=== PATIENT | female | born 1960 | race Caucasian/White ===

== ENCOUNTER 2018-03-26 16:31 | Inpatient (IN) | payer MEDICARE, OTHER ==
[~2018-03-26] VITALS: Ht 149.9 cm; Wt 49.6 kg
[2018-03-26] MEDS ORDERED: HYDROCODONE/APAP 7.5MG-325MG 1 EA TAB PO PRN (17:45)
[2018-03-26] MEDS ORDERED: ASPIRIN 81 MG CHEW TAB PO ONE (17:45)
[2018-03-26] MEDS ORDERED: AMLODIPINE BESYLATE 10 MG TAB ONE (18:10)
[2018-03-26] MEDS ORDERED: NITROGLYCERIN 2% OINT 1 GM PKT TOP ONE (18:15)
--- NOTE | 2018-03-26 18:54 | Diagnostic Imaging Report ---
SHOULDER LEFT COMPLETE - 2 views HISTORY: Pain. Left shoulder pain COMPARISON: None available. FINDINGS: Bones: Left distal clavicular resection. Healed left posterior fourth and fifth rib fracture deformities. Osseous alignment is within normal limits. Joints: The joint spaces are well-maintained. Soft tissues: The soft tissues appear unremarkable. IMPRESSION: 1. No acute radiographic abnormality. 2. Left distal clavicular resection. 3. Healed left posterior fourth and fifth rib fracture deformities. Signed by: Dr. Bon Ferris M.D. on 03/26/2018 6:51 PM
--- NOTE | 2018-03-26 18:55 | Diagnostic Imaging Report ---
EXAMINATION: CHEST SINGLE (PORTABLE) INDICATION: Shortness of breath. chest pain. COMPARISON: None FINDINGS: AP view TUBES and LINES: None. LUNGS: Lungs are well inflated. Right basilar atelectasis PLEURA: Trace right pleural effusion. HEART AND MEDIASTINUM: The cardiomediastinal silhouette is unremarkable. There are atherosclerotic calcifications within the aorta. BONES AND SOFT TISSUES: Healed left fourth and fifth rib fracture deformities. Distal left clavicular resection. No acute osseous lesion. Soft tissues are unremarkable. UPPER ABDOMEN: No free air under the diaphragm. IMPRESSION: Trace right pleural effusion with right basilar atelectasis and/or consolidation. Signed by: Dr. Bon Ferris M.D. on 03/26/2018 6:52 PM
[2018-03-26] MEDS ORDERED: HYDRALAZINE HCL 20 MG/ML VIAL IV STA (19:16)
[2018-03-26] MEDS ORDERED: HYDRALAZINE HCL 20 MG/ML VIAL ONE (19:20)
[2018-03-26 19:21] LABS: BASOPHILS % 0.4 % (0.0-1.0); EOSINOPHILS # (AUTO) 0.1 (0.0-0.4); EOSINOPHILS % 1.8 % (0.0-6.0); HEMATOCRIT 27.3 % (34.2-44.1); HEMOGLOBIN 9.3 g/dL (12.0-16.0); LYMPHOCYTES # (AUTO) 2.3 (1.0-3.2); MEAN CORPUSCULAR HEMOGLOBIN 33.1 pg (28-32); MEAN CORPUSCULAR HGB CONC 34.1 g/dL (31-35); MEAN CORPUSCULAR VOLUME 97.2 fL (81-99); MONOCYTES # (AUTO) 0.7 (0.2-0.8); MONOCYTES % 12.8 % (4.4-11.3); NEUTROPHILS # (AUTO) 2.5 (2.1-6.9); NEUTROPHILS % 43.6 % (38.7-80.0); PLATELET COUNT 138 x10e3/uL (140-360); RED BLOOD COUNT 2.81 x10e6/uL (3.6-5.1); RED CELL DISTRIBUTION WIDTH 17.5 % (11.7-14.4)
[2018-03-26] MEDS ORDERED: NITROGLYCERIN 0.1MG/HR PATCH TOP ONE (19:30)
[2018-03-26 19:34] LABS: INR 0.95; PROTHROMBIN TIME 13.5 seconds (11.9-14.5)
[2018-03-26 19:35] LABS: PARTIAL THROMBOPLASTIN TIME 36.6 seconds (23.8-35.5)
[2018-03-26 19:44] LABS: ALANINE AMINOTRANSFERASE 125 IU/L (0-55); ALBUMIN 2.9 g/dL (3.5-5.0); ALBUMIN/GLOBULIN RATIO 0.7 (0.8-2.0); ALKALINE PHOSPHATASE 134 IU/L (40-150); ANION GAP 14.7 mmol/L (8-16); BLOOD UREA NITROGEN 20 mg/dL (7-26); BUN/CREATININE RATIO 22 (6-25); CARBON DIOXIDE 22 mmol/L (22-29); CHLORIDE 100 mmol/L (98-107); CREATINE KINASE 207 IU/L (29-168); CREATININE, SERUM 0.93 mg/dL (0.57-1.11); EST GLOMERULAR FILTRATION RATE > 60 ML/MIN (60-); GLUCOSE 93 mg/dL (74-118); LIPASE 140 U/L (8-78); MAGNESIUM 1.4 MG/DL (1.3-2.1); POTASSIUM 3.7 mmol/L (3.5-5.1); SODIUM 133 mmol/L (136-145)
[2018-03-26] MEDS ORDERED: AMBIEN10 MG PO (20:27)
[2018-03-26] MEDS ORDERED: PAROXETINE HCL20 MG PO (20:27)
[2018-03-26] MEDS ORDERED: BUSPIRONE HCL5 MG PO (20:28)
[2018-03-26] MEDS ORDERED: HYDRALAZINE HCL25 MG PO (20:28)
[2018-03-26] MEDS ORDERED: FOLIC ACID1 MG PO (20:28)
[2018-03-26] MEDS ORDERED: TRAZODONE HCL100 MG PO (20:29)
[2018-03-26] MEDS ORDERED: CLONIDINE HCL0.1 MG PO (20:29)
[2018-03-26] MEDS ORDERED: TYLENOL WITH C1 EACH PO (20:30)
[2018-03-26 20:45] VITALS: BP 124/51
[2018-03-26] MEDS: FAMOTIDINE 20 MG/2 ML VIAL IV SCH (20:47)
[2018-03-26] MEDS: TRAZODONE HCL 50 MG TAB PO SCH (21:00)
[2018-03-26] MEDS: HYDRALAZINE HCL 25 MG TAB PO SCH (22:00)
[2018-03-26] MEDS: ZOLPIDEM TARTRATE 10 MG TAB PO PRN (22:25)
[2018-03-26] MEDS: PAROXETINE HCL 20 MG TAB PO SCH (22:25)
[2018-03-26 22:35] VITALS: BP 124/51
[2018-03-26 22:45] VITALS: BP 124/51
[2018-03-27] VITALS (9 sets, daily range): BP systolic 134–171; BP diastolic 63–74
[2018-03-27] MEDS: HYDRALAZINE HCL 20 MG/ML VIAL IV PRN (01:08)
[2018-03-27 04:16] LABS: BASOPHILS % 0.9 % (0.0-1.0); EOSINOPHILS # (AUTO) 0.1 (0.0-0.4); EOSINOPHILS % 1.9 % (0.0-6.0); HEMATOCRIT 25.2 % (34.2-44.1); HEMOGLOBIN 8.4 g/dL (12.0-16.0); LYMPHOCYTES # (AUTO) 1.8 (1.0-3.2); LYMPHOCYTES % 39.2 % (18.0-39.1); MEAN CORPUSCULAR HEMOGLOBIN 32.9 pg (28-32); MEAN CORPUSCULAR HGB CONC 33.3 g/dL (31-35); MEAN CORPUSCULAR VOLUME 98.8 fL (81-99); MONOCYTES # (AUTO) 0.7 (0.2-0.8); MONOCYTES % 15.4 % (4.4-11.3); NEUTROPHILS % 42.4 % (38.7-80.0); PLATELET COUNT 111 x10e3/uL (140-360); RED BLOOD COUNT 2.55 x10e6/uL (3.6-5.1); RED CELL DISTRIBUTION WIDTH 17.8 % (11.7-14.4)
[2018-03-27 04:31] LABS: ANION GAP 12.9 mmol/L (8-16); BLOOD UREA NITROGEN 23 mg/dL (7-26); BUN/CREATININE RATIO 26 (6-25); CALCIUM 8.7 mg/dL (8.4-10.2); CARBON DIOXIDE 25 mmol/L (22-29); CHLORIDE 101 mmol/L (98-107); CREATININE, SERUM 0.88 mg/dL (0.57-1.11); EST GLOMERULAR FILTRATION RATE > 60 ML/MIN (60-); GLUCOSE 103 mg/dL (74-118); POTASSIUM 3.9 mmol/L (3.5-5.1); SODIUM 135 mmol/L (136-145)
[2018-03-27 04:33] LABS: CHOL/HDL RATIO 3.4 (3.0-3.6)
[2018-03-27 04:40] LABS: CREATINE KINASE MB 2.4 ng/mL (0-5.0)
[2018-03-27] MEDS: HYDRALAZINE HCL 25 MG TAB PO SCH ×3 (05:10→21:20)
[2018-03-27] MEDS: FAMOTIDINE 20 MG/2 ML VIAL IV SCH (08:52)
[2018-03-27] MEDS: FOLIC ACID 1 MG TAB PO SCH (08:53)
[2018-03-27] MEDS: ASPIRIN 81 MG ENTERIC COATED PO SCH (08:53)
[2018-03-27] MEDS: BUSPIRONE HCL 5 MG TAB PO SCH ×2 (08:53→17:51)
[2018-03-27] MEDS ORDERED: NITROGLYCERIN 0.1MG/HR PATCH TOP SCH (09:00)
[2018-03-27] MEDS ORDERED: AMLODIPINE BESYLATE 10 MG TAB PO SCH ×2 (09:00→11:00)
[2018-03-27] MEDS ORDERED: ALBUTEROL/IPRATROPIUM 3 ML NEB NEB PRN (09:30)
--- NOTE | 2018-03-27 10:24 | History and Physical ---
CHIEF COMPLAINT: Increasing shortness of breath, cough productive, fever, and right stump wound drainage. PRIMARY CARE PROVIDER: Dr. Janeth Stokes. ATTENDING: Dr. Leonardo Saunders. CONCRETE CRUSHER LOADER OPERATOR: Dr. Cipriano Heart. HISTORY: This is a 57-year-old female, had a right AKA, had recent right AKA wound debridement and sutures were placed. Patient came in with a right stump drainage with pus. It is infected. There is an open wound area. Also she, at the same time, a smoker with COPD, came in with increasing shortness of breath, coughing productively, and with low-grade fever. The patient is admitted on observation. Will be converted to inpatient at this time. Will continue with antibiotics. She will need wound culture, consultation with Dr. Cipriano Heart, and along with that to obtain a CT scan to document infection. The patient is also having wheezing with COPD exacerbation. PAST MEDICAL HISTORY: Smoker, COPD, medical decline, chronic anemia, right AKA with stump infected with recurrent wound debridement, appendectomy, cholecystectomy, hypertension, dyslipidemia, coronary artery disease. MEDICATIONS: List is extensively reviewed. ALLERGIES: NO KNOWN ALLERGIES. SOCIAL HISTORY: Patient does smoke tobacco. No alcohol consumption. No recreational drug. REVIEW OF SYSTEMS: Right stump wound drainage. Increasing pain. Low-grade fever. Cough productive. Shortness of breath. PHYSICAL EXAMINATION GENERAL: The patient is weak but she is not in any distress at this time. She is on oxygen support. VITAL SIGNS: Temperature 98. Blood pressure 243/98. Pulse rate is 57. Respirations 22. HEENT: Normocephalic, atraumatic, and anicteric. NECK: Supple. PULMONARY: Bilaterally coarse with some rhonchi with diminished breath sounds, bases. CARDIOVASCULAR: Regular rate and rhythm. ABDOMEN: Soft. EXTREMITIES: Right AKA stump with wound drainage, open wound infection with pus. NEUROLOGIC: Moving all extremities. No focal deficit. LABORATORY: WBC is 5.6, hemoglobin 9.3, hematocrit 27, platelets is 138. Chemistry: Sodium is 133, potassium 3.7, chloride 100, bicarb 22, BUN 20, creatinine 0.9, glucose is 93. TSH is 9.7. Chest x-ray showed possible basilar infiltrate. IMPRESSIONS 1. Hypertensive urgency. 2. Right stump wound infection with drainage. 3. Basilar infiltrate, possible pneumonia. 4. Acute exacerbation of chronic obstructive pulmonary disease. 5. Chronic anemia. 6. Hypothyroidism. PLAN: Thyroid medication. IV antibiotics vancomycin and Zosyn. Consultation with Dr. Cipriano Heart. Wound care. Wound culture. CT chest without contrast. Nebulizer treatments. Will monitor the patient closely. Will hold off on steroids at this time unless she gets more of shortness of breath. Job#: [id number] FELI
[2018-03-27] MEDS: ACETAMINOPHEN/CODEINE 300MG - 30MG TAB PO PRN ×2 (10:28→19:18)
[2018-03-27] MEDS: ISOSORBIDE MONONITRATE 30 MG TAB CR PO SCH (10:36)
[2018-03-27] MEDS ORDERED: SODIUM CHLORIDE 0.9% 250ML 250 ML ONE (10:37)
[2018-03-27] MEDS: LEVOTHYROXINE SODIUM 50 MCG TAB PO SCH (10:37)
[2018-03-27] MEDS: PIPER-TAZ 3.375 GM 50 ML IV SCH ×2 (11:18→17:51)
--- NOTE | 2018-03-27 11:35 | Diagnostic Imaging Report ---
EXAMINATION: CT scan of the chest without contrast. TECHNIQUE: Helical CT images of the chest were performed from the lung apices to the level of the adrenal glands. No intravenous contrast was administered Coronal and sagittal reformatted images were obtained. COMPARISON: None. CLINICAL HISTORY:Atypical chest pain DISCUSSION: ABSENCE OF INTRAVENOUS CONTRAST DECREASES SENSITIVITY FOR DETECTION OF FOCAL LESIONS AND VASCULAR PATHOLOGY. LINES/TUBES: None. LUNGS AND AIRWAYS: Emphysematous change. No concerning nodules or masses. No consolidation. No significant fibrotic change. PLEURA: No pneumothorax or pleural effusions. HEART AND MEDIASTINUM: The thyroid gland is normal. Coronary artery calcifications. Aortic calcifications. LYMPH NODES: There is no mediastinal, hilar or axillary lymphadenopathy. ABDOMEN: Cirrhotic appearance of the liver BONES AND SOFT TISSUES: No acute bony abnormalities. IMPRESSION: Pulmonary edema. Coronary artery calcifications. Cirrhotic liver. Signed by: Dr. Dylan White M.D. on 03/27/2018 11:32 AM
[2018-03-27 12:23] LABS: CREATINE KINASE 109 IU/L (29-168)
[2018-03-27] MEDS: SODIUM CHLORIDE FLUSH 10 ML SYR INJ PRN ×3 (12:30→19:19)
[2018-03-27] MEDS: VANCOMYCIN 1GM/NS 250 ML 250 ML IV SCH (12:34)
[2018-03-27] MEDS: NICOTINE 21 MG/EA PATCH TOP SCH (12:41)
[2018-03-27] MEDS: TRAZODONE HCL 50 MG TAB PO SCH (20:03)
[2018-03-27] MEDS: PAROXETINE HCL 20 MG TAB PO SCH (20:03)
[2018-03-27 21:10] LABS: CREATINE KINASE 99 IU/L (29-168)
[2018-03-27] MEDS: ZOLPIDEM TARTRATE 10 MG TAB PO PRN (21:48)
[2018-03-28] VITALS (7 sets, daily range): BP systolic 139–183; BP diastolic 63–80
[2018-03-28] MEDS: CLONIDINE HCL 0.1 MG TAB PO PRN ×2 (00:58→21:17)
[2018-03-28] MEDS: ACETAMINOPHEN/CODEINE 300MG - 30MG TAB PO PRN (01:00)
[2018-03-28] MEDS: PIPER-TAZ 3.375 GM 50 ML IV SCH ×3 (01:56→17:16)
[2018-03-28] MEDS: LEVOTHYROXINE SODIUM 50 MCG TAB PO SCH (05:35)
[2018-03-28] MEDS: HYDRALAZINE HCL 25 MG TAB PO SCH (05:35)
[2018-03-28] MEDS ORDERED: VALSARTAN 160 MG TAB PO ONE (09:00)
[2018-03-28] MEDS: FUROSEMIDE INJ 10 MG/ML 4 ML VIAL IV SCH (09:10)
[2018-03-28] MEDS: NICOTINE 21 MG/EA PATCH TOP SCH (09:11)
[2018-03-28] MEDS: ASPIRIN 81 MG ENTERIC COATED PO SCH (09:11)
[2018-03-28] MEDS: POTASSIUM CHLORIDE 10MEQ EA PO SCH (09:11)
[2018-03-28] MEDS: FOLIC ACID 1 MG TAB PO SCH (09:11)
[2018-03-28] MEDS: ISOSORBIDE MONONITRATE 30 MG TAB CR PO SCH (09:11)
[2018-03-28] MEDS: BUSPIRONE HCL 5 MG TAB PO SCH ×2 (09:24→17:15)
[2018-03-28] MEDS ORDERED: VALSARTAN 80 MG TAB PO NR (09:30)
[2018-03-28] MEDS: SODIUM CHLORIDE FLUSH 10 ML SYR INJ PRN ×2 (09:45→17:51)
[2018-03-28 09:50] LABS: % IRON SATURATION 26 % (15-50); IRON 70 ug/dL (50-170); TOTAL IRON BINDING CAPACITY 270 ug/dL (261-478); TRANSFERRIN 193 mg/dL (180-382)
[2018-03-28] MEDS: VANCOMYCIN 1GM/NS 250 ML 250 ML IV SCH (10:19)
[2018-03-28 11:19] LABS: FOLATE 33.1 ng/mL (7.0-15.4)
[2018-03-28] MEDS: ENOXAPARIN SOD INJ 40 MG/0.4 ML SYR SC SCH ×2 (11:30→21:17)
[2018-03-28] MEDS: CARVEDILOL 12.5 MG TAB PO SCH ×2 (11:30→17:16)
[2018-03-28] MEDS: HYDROCODONE/APAP 10MG-325MG TAB PO PRN ×2 (11:42→17:52)
--- NOTE | 2018-03-28 17:10 | Consultation ---
DATE OF CONSULTATION: March 28, 2018 REFERRING PHYSICIANS: Dr. Saunders and Dr. Stokes. HISTORY OF PRESENT ILLNESS: Patient is a 57-year-old female known to me. She has had a right above-knee amputation after severe peripheral vascular disease in the right leg with ischemia of the right leg when she was in intensive care unit at [facility]. She developed open wound in the right leg with some necrotic tissue for which she underwent debridement about 2 weeks ago and then the wound was loosely closed. She has had some drainage from the wound since then which is expected. She complains of mild pain in the stump. She has been treated just with local care with a dry dressing and actually has been improving. PAST MEDICAL HISTORY: Significant for chronic obstructive pulmonary disease, peripheral vascular disease, history of ethanol abuse, coronary artery disease, hypertension, hyperlipidemia. She has had previous cholecystectomy, appendectomy as well as the recent jreid-ktj-mkas amputation. ALLERGIES: NO ALLERGIES. MEDICATIONS: Listed in the chart. FAMILY HISTORY: Noncontributory. SOCIAL HISTORY: The patient is formerly a heavy drinker, does not drink now, but does smoke cigarettes. REVIEW OF SYSTEMS: She is not had any fever. She has had complaints of cough and shortness of breath recently. PHYSICAL EXAMINATION: VITALS: At this time are normal. GENERAL: The patient is awake and alert and in no distress. EXTREMITIES: Significant findings in the right lower extremity, there is a wound that is partially closed posteriorly where there are some sutures. There is some serosanguineous drainage, but only a small amount. There is no erythema. There is no necrotic tissue. ASSESSMENT: A 57-year-old female with a slowly healing right open wound in the right above-knee amputation stump. I do not see any signs of active infection. She does have drainage which is to be suspected. Probably will remove the suture soon and allow the remainder of the would to close secondarily. There are no findings that require surgical intervention at this time. Thank you for asking me to see Ms. Farrell. Job#: [id number]
--- NOTE | 2018-03-28 18:55 | Consultation ---
DATE OF CONSULTATION: March 28, 2018 CARDIOVASCULAR CONSULTATION ATTENDING PHYSICIAN: Leonardo Saunders MD Thank you so much for asking me to see this nice patient in consultation. Ms. Farrell is a complex and unfortunate 57-year-old woman, who was admitted on the with a complaint of pain and drainage from her right tgtkl-qfd-tsfj amputation. HISTORY OF PRESENT ILLNESS: The patient has since she has been in the hospital had some chest discomfort. She has difficulty describing this, but apparently it is a precordial chest pressure that radiates to her left arm. She says she has never had this before. PAST MEDICAL HISTORY: Complex, most recently with right hyhba-njy-qxhv amputation probably in November of this year at [facility]. She describes this as an infection after a clot. She really cannot give me any further details. Past medical history is otherwise significant for a cerebrovascular accident in 2009 when she was hospitalized at [facility]. She apparently with a stroke fell down and injured her right knee, requiring debridement and antibiotics. She reports she did not have any neurologic residual. She reports she has been disabled since that time and not working. She reports that she has had previous cholecystectomy. MEDICATIONS: She cannot tell me her home medications, but adds that she does take blood pressure medicines. PERSONAL AND SOCIAL HISTORY: The patient has been smoking since she was 19 years of age approximately 1/2 pack per day for the last 38 years. REVIEW OF SYSTEMS CARDIAC: She denies any knowledge of any cardiac problem. NEUROLOGIC: She tells me that she has never had any evaluation of her carotid arteries, even though she had previous stroke. GENERAL: Patient reports she was ambulating before she had the right fvrfl-bvm-aykj amputation but is disabled and living at home. PHYSICAL EXAMINATION GENERAL: Exam at this time shows a disheveled white woman who looks much older than her stated age with poor dentition. VITALS: Most recent blood pressure was 170/78, although her admitting blood pressure to the hospital was 243/98. HEENT: Otherwise, relatively unremarkable. NECK: Bilateral carotid bruits, the left side much louder than the right. No jugular venous distention. THORAX: Heart sounds S1 and S2 are equal. There is a faint 1/6 systolic murmur. LUNGS: Relatively clear at this time. ABDOMEN: Protuberant. Normal bowel sounds. Nontender. EXTREMITIES: Right bnccw-axf-pcsz amputation with gauze bandage. LABS: Recent labs show BUN 23, creatinine 0.88. Glucose 103. Hemoglobin 8.4. White count 4.6. CHEST X-RAY: Relatively unremarkable. ASSESSMENT 1. Chest pain, most likely cardiac and coronary in origin. 2. Infected stump. 3. Severe hypertension with her telling me that her home readings are typically 170 to 180 with diastolic of about 100. 4. Carotid disease without previous evaluation. 5. Probable peripheral vascular disease. 6. Chronic obstructive pulmonary disease. 7. Anemia PLAN: Will check EKG today. Carotid Doppler scan and arterial Doppler scan of the legs and plan Cardiolite if she remains otherwise stable. Will adjust blood pressure medications and add Coreg 12.5 b.i.d. beginning now. Her prognosis is guarded. Thank for asking me to see her in consultation. Job#: [id number] cc:MD AURELIA ANDERSON MD
[2018-03-28] MEDS: PAROXETINE HCL 20 MG TAB PO SCH (21:17)
[2018-03-28] MEDS: TRAZODONE HCL 50 MG TAB PO SCH (21:18)
[2018-03-28] MEDS: ZOLPIDEM TARTRATE 10 MG TAB PO PRN (22:40)
[2018-03-29] VITALS (8 sets, daily range): BP systolic 170–215; BP diastolic 73–94
[2018-03-29] MEDS: HYDRALAZINE HCL 20 MG/ML VIAL IV PRN (01:06)
[2018-03-29] MEDS: HYDROCODONE/APAP 10MG-325MG TAB PO PRN ×2 (01:12→11:17)
[2018-03-29] MEDS: PIPER-TAZ 3.375 GM 50 ML IV SCH ×3 (01:49→18:49)
[2018-03-29] MEDS: HYDRALAZINE HCL 25 MG TAB PO PRN (04:05)
[2018-03-29 05:42] LABS: BASOPHILS % 0.6 % (0.0-1.0); EOSINOPHILS # (AUTO) 0.1 (0.0-0.4); EOSINOPHILS % 3.4 % (0.0-6.0); HEMATOCRIT 24.7 % (34.2-44.1); HEMOGLOBIN 8.1 g/dL (12.0-16.0); LYMPHOCYTES # (AUTO) 1.2 (1.0-3.2); LYMPHOCYTES % 37.9 % (18.0-39.1); MEAN CORPUSCULAR HEMOGLOBIN 32.8 pg (28-32); MEAN CORPUSCULAR HGB CONC 32.8 g/dL (31-35); MONOCYTES # (AUTO) 0.6 (0.2-0.8); MONOCYTES % 16.8 % (4.4-11.3); NEUTROPHILS # (AUTO) 1.3 (2.1-6.9); NEUTROPHILS % 40.7 % (38.7-80.0); PLATELET COUNT 100 x10e3/uL (140-360); RED BLOOD COUNT 2.47 x10e6/uL (3.6-5.1); RED CELL DISTRIBUTION WIDTH 17.6 % (11.7-14.4)
[2018-03-29 05:58] LABS: ANION GAP 13.6 mmol/L (8-16); CALCIUM 8.8 mg/dL (8.4-10.2); CREATININE, SERUM 1.26 mg/dL (0.57-1.11); POTASSIUM 3.6 mmol/L (3.5-5.1)
[2018-03-29 06:20] LABS: THYROID STIMULATING HORMONE 9.643 uIU/mL (0.350-4.940)
[2018-03-29] MEDS: VALSARTAN 160 MG TAB PO SCH ×2 (06:40→08:51)
[2018-03-29] MEDS: LEVOTHYROXINE SODIUM 50 MCG TAB PO SCH (06:40)
[2018-03-29] MEDS ORDERED: REGADENOSON 0.4 MG/5 ML SYR IV ONE (08:02)
[2018-03-29] MEDS: CARVEDILOL 12.5 MG TAB PO SCH ×2 (08:51→17:22)
[2018-03-29] MEDS ORDERED: POTASSIUM CHLORIDE 20 MEQ TAB CR PO SCH (09:00)
[2018-03-29] MEDS ORDERED: OXYMETAZOLINE HCL 0.05% NAS 1 SPRAY BTL SCH (10:00)
[2018-03-29] MEDS: BUSPIRONE HCL 5 MG TAB PO SCH ×2 (11:10→17:22)
[2018-03-29] MEDS: ISOSORBIDE MONONITRATE 30 MG TAB CR PO SCH (11:10)
[2018-03-29] MEDS: FOLIC ACID 1 MG TAB PO SCH (11:10)
[2018-03-29] MEDS: FUROSEMIDE INJ 10 MG/ML 4 ML VIAL IV SCH (11:10)
[2018-03-29] MEDS: POTASSIUM CHLORIDE 10MEQ EA PO SCH (11:11)
[2018-03-29] MEDS ORDERED: CLONIDINE HCL 0.1 MG TAB PO SCH (11:15)
[2018-03-29] MEDS: OXYMETAZOLINE HCL 0.05% NAS 1 SPRAY BTL PRN ×2 (11:30→16:20)
[2018-03-29] MEDS: VANCOMYCIN 1GM/NS 250 ML 250 ML IV SCH (11:59)
[2018-03-29] MEDS: CLONIDINE HCL 0.2 MG TAB PO SCH ×3 (12:10→21:11)
[2018-03-29] MEDS: NICOTINE 21 MG/EA PATCH TOP SCH (13:30)
[2018-03-29] MEDS: TRAZODONE HCL 50 MG TAB PO SCH (21:11)
[2018-03-29] MEDS: PAROXETINE HCL 20 MG TAB PO SCH (21:11)
[2018-03-29] MEDS: ZOLPIDEM TARTRATE 10 MG TAB PO PRN (23:09)
[2018-03-30] VITALS (7 sets, daily range): BP systolic 124–220; BP diastolic 58–91
[2018-03-30] MEDS: HYDRALAZINE HCL 20 MG/ML VIAL IV PRN ×2 (00:18→05:11)
[2018-03-30] MEDS: PIPER-TAZ 3.375 GM 50 ML IV SCH ×3 (02:12→18:06)
[2018-03-30] MEDS: LEVOTHYROXINE SODIUM 50 MCG TAB PO SCH (05:12)
[2018-03-30 05:56] LABS: BASOPHILS % 0.6 % (0.0-1.0); EOSINOPHILS # (AUTO) 0.1 (0.0-0.4); EOSINOPHILS % 1.8 % (0.0-6.0); HEMATOCRIT 27.2 % (34.2-44.1); HEMOGLOBIN 9.1 g/dL (12.0-16.0); LYMPHOCYTES # (AUTO) 1.8 (1.0-3.2); LYMPHOCYTES % 35.3 % (18.0-39.1); MEAN CORPUSCULAR HGB CONC 33.5 g/dL (31-35); MEAN CORPUSCULAR VOLUME 98.6 fL (81-99); MONOCYTES # (AUTO) 0.6 (0.2-0.8); MONOCYTES % 11.2 % (4.4-11.3); NEUTROPHILS # (AUTO) 2.6 (2.1-6.9); NEUTROPHILS % 50.9 % (38.7-80.0); PLATELET COUNT 117 x10e3/uL (140-360); RED BLOOD COUNT 2.76 x10e6/uL (3.6-5.1); RED CELL DISTRIBUTION WIDTH 17.4 % (11.7-14.4)
[2018-03-30 06:20] LABS: ANION GAP 12.5 mmol/L (8-16); CALCIUM 9.7 mg/dL (8.4-10.2); CREATININE, SERUM 1.05 mg/dL (0.57-1.11); POTASSIUM 3.5 mmol/L (3.5-5.1)
[2018-03-30] MEDS: CLONIDINE HCL 0.2 MG TAB PO SCH (09:27)
[2018-03-30] MEDS: BUSPIRONE HCL 5 MG TAB PO SCH (09:27)
[2018-03-30] MEDS: FUROSEMIDE INJ 10 MG/ML 4 ML VIAL IV SCH (09:27)
[2018-03-30] MEDS: NICOTINE 21 MG/EA PATCH TOP SCH (09:28)
[2018-03-30] MEDS: FOLIC ACID 1 MG TAB PO SCH (09:28)
[2018-03-30] MEDS: ISOSORBIDE MONONITRATE 30 MG TAB CR PO SCH (09:28)
[2018-03-30] MEDS: CARVEDILOL 12.5 MG TAB PO SCH ×2 (09:28→17:00)
[2018-03-30] MEDS: VALSARTAN 160 MG TAB PO SCH (09:28)
[2018-03-30] MEDS: POTASSIUM CHLORIDE 10MEQ EA PO SCH (09:30)
[2018-03-30] MEDS ORDERED: NIFEDIPINE CR 30 MG TAB PO NR (11:00)
[2018-03-30] MEDS: VANCOMYCIN 1GM/NS 250 ML 250 ML IV SCH (11:05)
[2018-03-30] MEDS: OLMESARTAN 20 MG TAB PO SCH (12:55)
[2018-03-30] MEDS: BUSPIRONE HCL 10 MG TABLET PO SCH (17:19)
[2018-03-30] MEDS: HYDROCODONE/APAP 10MG-325MG TAB PO PRN (17:45)
[2018-03-30] MEDS: PAROXETINE HCL 20 MG TAB PO SCH (20:21)
[2018-03-30] MEDS: TRAZODONE HCL 50 MG TAB PO SCH (20:21)
[2018-03-30] MEDS: HYDRALAZINE HCL 25 MG TAB PO PRN (20:26)
[2018-03-30] MEDS: ZOLPIDEM TARTRATE 10 MG TAB PO PRN (22:20)
[2018-03-31] VITALS (7 sets, daily range): BP systolic 137–203; BP diastolic 67–84
[2018-03-31] MEDS: HYDRALAZINE HCL 20 MG/ML VIAL IV PRN (01:16)
[2018-03-31] MEDS: PIPER-TAZ 3.375 GM 50 ML IV SCH ×3 (01:24→17:49)
[2018-03-31] MEDS: LEVOTHYROXINE SODIUM 50 MCG TAB PO SCH (05:42)
[2018-03-31] MEDS ORDERED: NIFEDIPINE CR 30 MG TAB PO SCH (06:00)
[2018-03-31] MEDS: BUSPIRONE HCL 10 MG TABLET PO SCH ×2 (09:19→17:49)
[2018-03-31] MEDS: OLMESARTAN 20 MG TAB PO SCH (09:19)
[2018-03-31] MEDS: CARVEDILOL 12.5 MG TAB PO SCH ×2 (09:20→17:49)
[2018-03-31] MEDS: FUROSEMIDE 40 MG TAB PO SCH (09:20)
[2018-03-31] MEDS: FOLIC ACID 1 MG TAB PO SCH (09:20)
[2018-03-31] MEDS: ISOSORBIDE MONONITRATE 30 MG TAB CR PO SCH (09:20)
[2018-03-31] MEDS: NICOTINE 21 MG/EA PATCH TOP SCH (09:20)
[2018-03-31] MEDS: POTASSIUM CHLORIDE 10MEQ EA PO SCH (09:21)
[2018-03-31] MEDS: VANCOMYCIN 1GM/NS 250 ML 250 ML IV SCH (09:30)
[2018-03-31] MEDS ORDERED: NIFEDIPINE CR 30 MG TAB PO NR (09:45)
[2018-03-31] MEDS: HYDROCODONE/APAP 10MG-325MG TAB PO PRN ×2 (12:20→18:40)
[2018-03-31] MEDS: PAROXETINE HCL 20 MG TAB PO SCH (21:36)
[2018-03-31] MEDS: TRAZODONE HCL 50 MG TAB PO SCH (21:36)
[2018-03-31] MEDS: ZOLPIDEM TARTRATE 10 MG TAB PO PRN (22:40)
[2018-04-01 01:55] VITALS: BP_SYST 142; BP_SYST 168; BP_DIAS 64; BP_DIAS 73
[2018-04-01] MEDS: PIPER-TAZ 3.375 GM 50 ML IV SCH ×2 (03:04→10:00)
[2018-04-01 04:21] VITALS: BP 142/64
[2018-04-01] MEDS: HYDRALAZINE HCL 20 MG/ML VIAL IV PRN (05:09)
[2018-04-01] MEDS: LEVOTHYROXINE SODIUM 50 MCG TAB PO SCH (05:09)
[2018-04-01 06:08] VITALS: BP 180/79
[2018-04-01 06:46] LABS: ANION GAP 9.2 mmol/L (8-16); CREATININE, SERUM 0.96 mg/dL (0.57-1.11); POTASSIUM 3.2 mmol/L (3.5-5.1); VANCOMYCIN,RANDOM 15.2 ug/mL
[2018-04-01 07:35] VITALS: BP 164/72
[2018-04-01] MEDS: FUROSEMIDE 40 MG TAB PO SCH (09:00)
[2018-04-01] MEDS ORDERED: NIFEDIPINE CR 30 MG TAB PO SCH (09:00)
[2018-04-01] MEDS: ISOSORBIDE MONONITRATE 30 MG TAB CR PO SCH (09:00)
[2018-04-01] MEDS: OLMESARTAN 20 MG TAB PO SCH (09:00)
[2018-04-01] MEDS: POTASSIUM CHLORIDE 10MEQ EA PO SCH (09:00)
[2018-04-01] MEDS: NICOTINE 21 MG/EA PATCH TOP SCH (09:00)
[2018-04-01] MEDS: CARVEDILOL 12.5 MG TAB PO SCH (09:00)
[2018-04-01] MEDS: BUSPIRONE HCL 10 MG TABLET PO SCH (09:00)
[2018-04-01] MEDS: FOLIC ACID 1 MG TAB PO SCH (09:00)
[2018-04-01 09:17] LABS: BASOPHILS % 0.3 % (0.0-1.0); EOSINOPHILS # (AUTO) 0.1 (0.0-0.4); HEMATOCRIT 26.7 % (34.2-44.1); HEMOGLOBIN 8.9 g/dL (12.0-16.0); LYMPHOCYTES # (AUTO) 1.7 (1.0-3.2); MEAN CORPUSCULAR HEMOGLOBIN 33.8 pg (28-32); MEAN CORPUSCULAR HGB CONC 33.3 g/dL (31-35); MEAN CORPUSCULAR VOLUME 101.5 fL (81-99); MONOCYTES # (AUTO) 0.5 (0.2-0.8); NEUTROPHILS # (AUTO) 1.7 (2.1-6.9); NEUTROPHILS % 42.4 % (38.7-80.0); PLATELET COUNT 93 x10e3/uL (140-360); RED BLOOD COUNT 2.63 x10e6/uL (3.6-5.1); RED CELL DISTRIBUTION WIDTH 17.1 % (11.7-14.4)
[2018-04-01] MEDS ORDERED: NIFEDIPINE10 MG PO (11:06)
[2018-04-01] MEDS ORDERED: LASIX20 MG PO (11:07)
[2018-04-01] MEDS ORDERED: K DUR10 MEQ PO (11:07)
[2018-04-01] MEDS ORDERED: COREG12.5 MG PO (11:07)
[2018-04-01] MEDS ORDERED: IMDUR PO (11:08)
[2018-04-01] MEDS ORDERED: LYRICA50 MG PO (11:09)
[2018-04-01] MEDS ORDERED: AUGMENTIN 875-1 EACH PO (11:09)
[2018-04-01] MEDS ORDERED: BENICAR5 MG PO (11:09)
[2018-04-01 11:42] VITALS: BP 138/65
--- NOTE | 2018-04-01 13:39 | Discharge Summary ---
PCP: Dr. Janeth Stokes CIRCULAR SAWYER STONE: Dr. Cipriano Heart and Dr. Noel Badillo. FINAL DIAGNOSES 1. Right stump abscess, status post drainage. Bacteria gram-positive cocci. 2. Niglt-fa-tfyiwgt diastolic dysfunction congestive heart failure associated with pulmonary hypertension associated with chronic obstructive pulmonary disease. 3. Acute exacerbation of chronic obstructive pulmonary disease. 4. Baseline years of heavy smoking, current smoker. 5. Medical debility. 6. Electrolyte disorder, corrected. SUMMARY: This patient is a 57-year-old female who came in with increasing shortness of breath, wheezing and also had fluid in her lungs and vascular congestion. The patient has a history of cardiac workup in the past. She had peripheral vascular disease. She had left cardiac catheterization last in November 2005. The patient with positive selective coronary angiogram and left ventriculogram. Her ejection fraction at that time was approximately 55%. The patient had angioplasty to the right external iliac artery. She also had bilateral carotid angiogram with no significant stenosis. The patient also had other vascular workup previously. The patient came in this time with a right stump drainage and also with increasing shortness of breath and wheezing. The patient's workup done showed that she had gram-positive cocci in the wound culture. She also had workup done as well. Her carotid Doppler was otherwise with no significant blockage. The ejection fraction on repeat echocardiogram was 65% to 70%. The patient is stable. She can go home today. She will resume all home medications. She will get Augmentin 875 mg twice a day for 5 days. She will be placed on levothyroxine for her low thyroid of 50 mcg per day. Other medications, will be prescribed for the patient. She will get Imdur 40 mg daily, Coreg 12.5 mg twice a day, Benicar 20 mg daily, nifedipine XL 60 mg daily. She will discontinue hydralazine on a scheduled dosing. The patient is otherwise stable. Resume her home pain medications. Start the patient on Lyrica 50 mg twice a day. Patient is stable and discharged home today. Job#: [id number] TRUPTI
--- OUTSIDE RECORDS SUMMARY | 2018-04-09 09:38 | XMS REPORT ---
Author Author [facility] Address Unknown Phone Unavailable Care Team Providers Care Advertising Account Executive Name Role Phone PATRICIA DENIS Unavailable Unavailable Payers Payer Name Policy Type Policy Number Effective Date Expiration Date Problems This patient has no known problems. Allergies, Adverse Reactions, Alerts Allergy Name Allergy Type Status Severity Reaction(s) Onset Date Inactive Date Treating Clinician Comments No Known Allergies DA Active U 2016-11-10 00:00:00 Medications This patient has no known medications. Results Test Description Test Time Test Comments Text Results Atomic Results Result Comments CT CHEST WO 2018-03-27 11:28:00 [place] [address] Patient Name: OLAF ONEAL MR #: [id number] : 1960 Age/Sex: 57/F Req #: [id number] Adm Physician: PATRICIA DENIS MD Ordered by: PATRICIA DENIS MD Report #: [id number] Location: [facility] Room/Bed: [place] [address] Procedure: [id number] CT/CT CHEST WO Exam Date: 03/27/18 Exam Time: 1052 REPORT STATUS: Signed EXAMINATION: CT scan of the chest without contrast. TECHNIQUE: Helical CT images of the chest were performed from the lung apices to the level of the adrenal glands. No intravenous contrast was administered Coronal and sagittal reformatted images were obtained. COMPARISON: None. CLINICAL HISTORY:Atypical chest pain DISCUSSION: ABSENCE OF INTRAVENOUS CONTRAST DECREASES SENSITIVITY FOR DETECTION OF FOCAL LESIONS AND VASCULAR PATHOLOGY. LINES/TUBES: None. LUNGS AND AIRWAYS: Emphysematous change. No concerning nodules or masses. No consolidation. No significant fibrotic change. PLEURA: No pneumothorax or pleural effusions. HEART AND MEDIASTINUM: The thyroid gland is normal. Coronary artery calcifications. Aortic calcifications. LYMPH NODES: There is no med iastinal, hilar or axillary lymphadenopathy. ABDOMEN: Cirrhotic appearance of the liver BONES AND SOFT TISSUES: No acute bony abnormalities. IMPRESSION: Pulmonary edema. Coronary artery calcifications. Cirrhotic liver. Signed by: Dr. Curtis Iglesias M.D. on 03/27/2018 11:32 AM Dictated By: CURTIS IGLESIAS MD 1132 Transcribed By: YOANA on 03/27/18 1132 COPY TO: PATRICIA DENIS MD SHOULDER LEFT COMPLETE 2018-03-26 18:50:00 [place] [address] Patient Name: OLAF ONEAL MR #: [id number] : 1960 Age/Sex: 57/F Req #: [id number] Adm Physician: Ordered by: GUNJAN SALTER WING SCORER Report #: [id number] Location: ER Room/Bed: Procedure: [id number] DX/SHOULDER LEFT COMPLETE Exam Date: 03/26/18 Exam Time: 1830 REPORT STATUS: Signed SHOULDER LEFT COMPLETE - 2 views HISTORY: Pain. Left shoulder pain COMPARISON: None available. FINDINGS: Bones: Left distal clavicular resection. Healed left posterior fourth and fifth rib fracture deformities. Osseous alignment is within normal limits. Joints: The joint spaces are well-maintained. Soft tissues: The soft tissues appear unremarkable. IMPRESSION: 1. No acute radiographic abnormality. 2. Left distal clavicular resection. 3. Healed left posterior fourth and fifth rib fracture deformities. Signed by: Dr. Pro Luis M.D. on 03/26/2018 6:51 PM Dictated By: PRO LUIS MD 50 Transcribed By: YOANA on 03/26/181850 COPY TO: GUNJAN SALTER NP CHEST SINGLE (PORTABLE) 2018-03-26 18:49:00 [place] [address] Patient Name: OLAF ONEAL MR #: [id number] : 1960 Age/Sex: 57/F Req #: [id number] Adm Physician: Ordered by: GUNJAN SALTER WING SCORER Report #: [id number] Location: ER Room/Bed: Procedure: [id number] DX/CHEST SINGLE (PORTABLE) Exam Date: 03/26/18 Exam Time: 1830 REPORT STATUS: Signed EXAMINATION: CHEST SINGLE (PORTABLE) INDICATION: Shortness of breath. chest pain. COMPARISON: None FINDINGS: AP view TUBES and LINES: None. LUNGS: Lungs are well inflated. Right basilar atelectasis PLEURA: Trace right pleural effusion. HEART AND MEDIASTINUM: The cardiomediastinal silhouette is unremarkable. There are atherosclerotic calcifications within the aorta. BONES AND SOFT TISSUES: Healed left fourth and fifth rib fracture deformities. Distal left clavicular resection. No acute osseous lesion. Soft tissues are unremarkable. UPPER ABDOMEN: No free air under the diaphragm. IMPRESSION: Trace right pleural effusion with right basilar atelectasis and/or consolidation. Signed by: Dr. Pro Luis M.D. on 03/26/2018 6:52 PM Dictated By: PRO LUIS MD 51 Transcribed By: YOANA on 03/26/181851 COPY TO: GUNJAN SALTER NP
== END 2018-04-01 11:45 | disposition home or self-care (01) | DRG 564 ==
LOC: ER 16:31 → ERHOLD 20:26 → IMCU 21:20 → OBSVTOIN 03-27 10:05 → MED/SURG3 03-28 18:52
PROVIDERS: ADMIT Internal Medicine; ATTEND Internal Medicine
DX: T87.43 Infection of amputation stump, right lower extremity (principal); I50.33 Acute on chronic diastolic (congestive) heart failure; J44.1 Chronic obstructive pulmonary disease with (acute) exacerbation; J44.0 Chronic obstructive pulmonary disease with (acute) lower respiratory infection; D64.9 Anemia, unspecified; I16.0 Hypertensive urgency; M25.512 Pain in left shoulder; R07.89 Other chest pain; F17.210 Nicotine dependence, cigarettes, uncomplicated; Z89.611 Acquired absence of right leg above knee; E03.9 Hypothyroidism, unspecified; I73.9 Peripheral vascular disease, unspecified; I65.22 Occlusion and stenosis of left carotid artery; I11.0 Hypertensive heart disease with heart failure; R53.81 Other malaise; B96.89 Other specified bacterial agents as the cause of diseases classified elsewhere; J20.9 Acute bronchitis, unspecified
CPT/HCPCS: 36415; 71045; 71250; 78452; 80048; 80053; 80061; 80202; 82550; 82553; 82607; 82746; 83540; 83690; 83735; 83880; 84443; 84466; 84484; 85025; 85610; 85730; 87071; 87205; 93005; 93306; 93880; 93925; 99284; A9502; G0378; J0360; J1650; J1940; J2543; J3370; J7050

== ENCOUNTER → 2018-08-27 | Day surgery (SDC) | payer OTHER ==
[~2018-08-27] MED LIST: AMBIEN10 MG PO; AMLODIPINE BESY10 MG PO; AUGMENTIN 875-1 EACH PO; BENICAR5 MG PO; BUSPIRONE HCL5 MG PO; CLONIDINE HCL0.1 MG PO; COREG12.5 MG PO; FENTANYL CITRATE/PF 100MCG/2 ML INJ ONE; FOLIC ACID1 MG PO; HYDRALAZINE HCL25 MG PO; IBUPROFEN200 MG PO; IMDUR PO; ISOSORBIDE MONO20 MG PO; K DUR10 MEQ PO; LASIX20 MG PO; LYRICA50 MG PO; MIDAZOLAM HCL 2 MG/2 ML VIAL ONE; NIFEDIPINE10 MG PO; ONDANSETRON2 MG/1 ML PO; PAROXETINE HCL20 MG PO; PROPOFOL IV EMULSION 10 MG/ML 50 ML VIAL ONE; TRAZODONE HCL100 MG PO; TYLENOL WITH C1 EACH PO
[2018-08-27 12:05] VITALS: BP 152/66
== END | disposition home or self-care (01) ==
LOC: OR 09:54
PROVIDERS: ATTEND Internal Medicine Gastroenterology
DX: Z12.11 Encounter for screening for malignant neoplasm of colon (principal); K29.50 Unspecified chronic gastritis without bleeding; K25.9 Gastric ulcer, unspecified as acute or chronic, without hemorrhage or perforation; K21.0 Gastro-esophageal reflux disease with esophagitis; K57.30 Diverticulosis of large intestine without perforation or abscess without bleeding; K59.00 Constipation, unspecified; K44.9 Diaphragmatic hernia without obstruction or gangrene; K64.8 Other hemorrhoids; B19.20 Unspecified viral hepatitis C without hepatic coma; I16.0 Hypertensive urgency; R07.9 Chest pain, unspecified; F17.210 Nicotine dependence, cigarettes, uncomplicated; Z01.810 Encounter for preprocedural cardiovascular examination; Z86.73 Personal history of transient ischemic attack (TIA), and cerebral infarction without residual deficits
CPT/HCPCS: 43239; 45378; 93005; J2250; J2704

== ENCOUNTER → 2018-09-11 | Outpatient (CLI) | payer MEDICARE, OTHER ==
[~2018-09-11] MED LIST changes: -FENTANYL CITRATE/PF 100MCG/2 ML INJ ONE; -MIDAZOLAM HCL 2 MG/2 ML VIAL ONE; -PROPOFOL IV EMULSION 10 MG/ML 50 ML VIAL ONE
--- NOTE | 2018-09-11 11:34 | Diagnostic Imaging Report ---
EXAM: US ABDOMEN COMPLETE DATE: 09/11/2018 8:42 AM INDICATION: Abdominal pain COMPARISON: None FINDINGS: Grayscale and color flow Doppler ultrasound of the abdomen was performed. Liver: 15.2 cm span. Normal parenchymal echogenicity. No intrahepatic mass or bile duct dilatation. Main portal vein 0.6 cm, nondilated, normal hepatopetal flow. Spleen: 8.2 cm span, no splenomegaly. Biliary: There are nonshadowing intraluminal filling defects measuring up to 0.8 cm. These may represent noncalcified calculi. No gallbladder wall thickening or pericholecystic fluid. Sonographic Woods sign negative. Common bile duct 0.4 cm, normal. Pancreas: Visualized portions show no mass or duct dilatation. Right kidney: 10.1 x 3.2 x 4.0 cm. Cortical thickness 0.9 cm. Normal cortical echogenicity. No hydronephrosis or contour deforming mass. Left kidney: 7.8 x 3.4 x 4.5 cm. Cortical thickness 1.3 cm. Normal cortical echogenicity. No hydronephrosis or contour deforming mass. Vessels: Visualized portions of aorta and IVC unremarkable. Ascites: None IMPRESSION: 1. Nonshadowing filling defects in the gallbladder may represent noncalcified calculi. No sonographic evidence for cholecystitis. No dilatation of the biliary tree. 2. No sonographic evidence for acute abdominal pathology. Signed by: Dr. Pablo Bernard M.D. on 09/11/2018 11:31 AM
== END ==
LOC: US 08:36
PROVIDERS: ATTEND Internal Medicine Gastroenterology
DX: R10.9 Unspecified abdominal pain (principal)
CPT/HCPCS: 76700

== ENCOUNTER 2019-01-13 12:18 | Inpatient (IN) | payer MEDICARE, OTHER ==
[~2019-01-13] VITALS: Ht 154.9 cm; Wt 34.6 kg
[2019-01-13] MEDS ORDERED: ASPIRIN 81 MG CHEW TAB PO ONE (12:30)
[2019-01-13] MEDS ORDERED: ONDANSETRON HCL INJ 2MG/ML 2ML 2 MG/ML VIAL IV STA (12:30)
[2019-01-13] MEDS ORDERED: HYDRALAZINE HCL 20 MG/ML VIAL IV STA (12:30)
[2019-01-13] MEDS ORDERED: MORPHINE SULFATE INJ 4 MG/ML INJ 1ML IV STA (12:30)
[2019-01-13] MEDS ORDERED: SODIUM CHLORIDE 0.9% 500ML 500 ML IV STA (12:30)
[2019-01-13 12:45] LABS: BASOPHILS % 0.6 % (0.0-1.0); EOSINOPHILS # (AUTO) 0.1 (0.0-0.4); EOSINOPHILS % 1.1 % (0.0-6.0); HEMATOCRIT 34.7 % (34.2-44.1); HEMOGLOBIN 11.6 g/dL (12.0-16.0); LYMPHOCYTES # (AUTO) 1.4 (1.0-3.2); LYMPHOCYTES % 29.1 % (18.0-39.1); MEAN CORPUSCULAR HEMOGLOBIN 33.7 pg (28-32); MEAN CORPUSCULAR HGB CONC 33.4 g/dL (31-35); MEAN CORPUSCULAR VOLUME 100.9 fL (81-99); MONOCYTES # (AUTO) 0.5 (0.2-0.8); MONOCYTES % 10.5 % (4.4-11.3); NEUTROPHILS # (AUTO) 2.8 (2.1-6.9); NEUTROPHILS % 58.3 % (38.7-80.0); PLATELET COUNT 102 x10e3/uL (140-360); RED BLOOD COUNT 3.44 x10e6/uL (3.6-5.1); RED CELL DISTRIBUTION WIDTH 13.6 % (11.7-14.4)
[2019-01-13 13:08] LABS: INR 0.95; PROTHROMBIN TIME 13.2 seconds (11.9-14.5)
[2019-01-13 13:09] LABS: PARTIAL THROMBOPLASTIN TIME 35.8 seconds (23.8-35.5)
[2019-01-13 13:16] LABS: ALBUMIN 2.5 g/dL (3.5-5.0); ALBUMIN/GLOBULIN RATIO 0.6 (0.8-2.0); ANION GAP 12.4 mmol/L (8-16); CREATININE, SERUM 1.15 mg/dL (0.57-1.11); POTASSIUM 3.4 mmol/L (3.5-5.1)
[2019-01-13 13:22] LABS: CREATINE KINASE MB 2.2 ng/mL (0-5.0)
[2019-01-13 13:24] LABS: BILIRUBIN,URINE NEGATIVE (NEGATIVE); CLARITY,URINE CLEAR (CLEAR); COLOR,URINE YELLOW (YELLOW); KETONES,URINE NEGATIVE (NEGATIVE); LEUKOCYTE ESTERASE ,URINE NEGATIVE (NEGATIVE); NITRITE,URINE NEGATIVE (NEGATIVE); URINE UROBILINOGEN 0.2 mg/dL (0.2 - 1)
[2019-01-13 13:26] LABS: PROTEIN,URINE DIPSTICK 2+ (NEGATIVE)
[2019-01-13 13:35] LABS: BACTERIA,URINE MODERATE /HPF; EPITHELIAL CELLS,URINE MODERATE /LPF; RBC,URINE 0-5 /HPF (0-5)
--- NOTE | 2019-01-13 13:47 | Diagnostic Imaging Report ---
EXAMINATION: CHEST SINGLE (PORTABLE) INDICATION: Chest pain COMPARISON: Chest CT of 03/27/2018 FINDINGS: TUBES and LINES: EKG leads overlie the chest. LUNGS: The lungs are well-inflated. Mild right lung base patchy opacities. PLEURA: Small right pleural effusion. No left pleural effusion. No pneumothorax. HEART AND MEDIASTINUM: The cardiomediastinal silhouette is normal in size and contour. Atherosclerotic calcifications of the thoracic aorta. BONES AND SOFT TISSUES: Old fracture deformities involve the left fourth and fifth posterolateral ribs. No acute osseous injury. UPPER ABDOMEN: No free air under the diaphragm. IMPRESSION: Patchy right lung base opacity, more likely subsegmental atelectasis than superimposed aspiration or pneumonia. Small right pleural effusion. Signed by: Marzena Guy MD on 01/13/2019 1:43 PM
--- NOTE | 2019-01-13 13:59 | NUR ---
DR. WOODS IN ROOM TO UPDATE PT ON PENDING ADMIT
[2019-01-13] MEDS: MORPHINE SULFATE 2 MG/ML SYR 1ML IV PRN ×2 (15:52→22:02)
[2019-01-13] MEDS: ONDANSETRON HCL INJ 2MG/ML 2ML 2 MG/ML VIAL IV PRN (15:52)
[2019-01-13] MEDS: SODIUM CHLORIDE 0.9% 1000ML 1,000 ML IV SCH (15:52)
--- NOTE | 2019-01-13 15:55 | NUR ---
cardiac diet ordered for this pt. ivf started/morphine 2mg and 4mg zofran given. pending admit to hospital
--- NOTE | 2019-01-13 17:03 | NUR ---
bed control called re placement for this pt.; spoke to sathish
--- NOTE | 2019-01-13 17:12 | NUR ---
REPORT CALLED TO FAB SANTOYO FOR THISPT. TO GO TO RM 111
[2019-01-13] MEDS ORDERED: NIFEDIPINE CR 30 MG TAB PO ONE (18:15)
[2019-01-13] MEDS: HYDRALAZINE HCL 20 MG/ML VIAL IV PRN (18:22)
--- NOTE | 2019-01-13 19:46 | NUR ---
[facility]
[2019-01-13 20:00] VITALS: BP_SYST 120; BP_SYST 201; BP_DIAS 83
--- NOTE | 2019-01-13 20:10 | NUR ---
Received patient from the [facility],, via stretcher. Patient is alert and oriented. AKA to right extremities noted. Patient was assisted in bed and made comfortable. Patient states she wants to have her night medication Ambien and Buspirone.
--- NOTE | 2019-01-13 20:25 | NUR ---
Spoke with Dr. Saunders regarding patient's medication. Dr. Saunders made new order to continue home medications and consult Dr. Cara Dan for chest pain.
--- NOTE | 2019-01-13 20:38 | NUR ---
Patient states she only take Ambien 10 mg at HS, Clonidine 0.1 mg TID, Buspirone [address] Cara Dan for consult.
[2019-01-13 21:15] VITALS: BP 201/83
[2019-01-13 21:54] LABS: CREATINE KINASE MB 2.8 ng/mL (0-5.0)
[2019-01-13] MEDS: CLONIDINE HCL 0.1 MG TAB PO SCH (21:55)
[2019-01-13] MEDS: ZOLPIDEM TARTRATE 10 MG TAB PO SCH (21:55)
[2019-01-13] MEDS: BUSPIRONE HCL 5 MG TAB PO SCH (21:55)
--- NOTE | 2019-01-13 22:28 | NUR ---
BP improved 165/85 mmhg, NV 65 b/min.
[2019-01-14] VITALS (8 sets, daily range): BP systolic 146–199; BP diastolic 65–91
[2019-01-14] MEDS: HYDRALAZINE HCL 20 MG/ML VIAL IV PRN ×3 (00:17→11:50)
[2019-01-14] MEDS: SODIUM CHLORIDE 0.9% 1000ML 1,000 ML IV SCH (03:16)
[2019-01-14] MEDS: MORPHINE SULFATE 2 MG/ML SYR 1ML IV PRN (04:13)
[2019-01-14 06:42] LABS: BASOPHILS % 0.6 % (0.0-1.0); EOSINOPHILS # (AUTO) 0.1 (0.0-0.4); EOSINOPHILS % 1.5 % (0.0-6.0); HEMATOCRIT 30.4 % (34.2-44.1); HEMOGLOBIN 10.1 g/dL (12.0-16.0); LYMPHOCYTES # (AUTO) 1.3 (1.0-3.2); LYMPHOCYTES % 24.5 % (18.0-39.1); MEAN CORPUSCULAR HEMOGLOBIN 34.4 pg (28-32); MEAN CORPUSCULAR HGB CONC 33.2 g/dL (31-35); MEAN CORPUSCULAR VOLUME 103.4 fL (81-99); MONOCYTES # (AUTO) 0.6 (0.2-0.8); NEUTROPHILS # (AUTO) 3.3 (2.1-6.9); NEUTROPHILS % 61.8 % (38.7-80.0); PLATELET COUNT 111 x10e3/uL (140-360); RED BLOOD COUNT 2.94 x10e6/uL (3.6-5.1); RED CELL DISTRIBUTION WIDTH 13.9 % (11.7-14.4)
[2019-01-14 07:05] LABS: ANION GAP 12.9 mmol/L (8-16); CALCIUM 8.4 mg/dL (8.4-10.2); CREATININE, SERUM 1.26 mg/dL (0.57-1.11); POTASSIUM 3.9 mmol/L (3.5-5.1)
--- NOTE | 2019-01-14 07:27 | NUR ---
RECEIVED PATIENT AWAKE RESTING IN BED NO SIGNS OF DISTRESS. BED LOW, WHEELS LOCKED, SIDE RAILS X2. CALL LIGHT IN REACH. WILL CONTINUE TO MONITOR PATIENT.
--- NOTE | 2019-01-14 07:31 | Diagnostic Imaging Report ---
EXAM: CHEST SINGLE (PORTABLE), AP Portable DATE: 01/14/2019 Time stamp on exam: 6:21 AM INDICATION: Chest pain COMPARISON: 01/13/2019 FINDINGS: LINES/TUBES: None LUNGS: No consolidations or edema. Minimal bibasilar atelectasis. PLEURA: Small right pleural effusion unchanged. HEART AND MEDIASTINUM: Normal size and contour. BONES AND SOFT TISSUES: No acute findings. Old left-sided rib fractures. There is been resection of the distal one third of the left clavicle. IMPRESSION: Small right pleural effusion. Signed by: Dr. Arvind Barbosa DO on 01/14/2019 7:27 AM
[2019-01-14] MEDS: CLONIDINE HCL 0.1 MG TAB PO SCH ×3 (08:20→21:40)
[2019-01-14] MEDS: BUSPIRONE HCL 5 MG TAB PO SCH ×2 (08:20→16:36)
[2019-01-14] MEDS ORDERED: ASPIRIN 325 MG TAB EC PO SCH (09:00)
[2019-01-14] MEDS ORDERED: NIFEDIPINE CR 30 MG TAB PO SCH (09:00)
--- NOTE | 2019-01-14 09:15 | NUR ---
PATIENT A/O X3, EVEN RESPIRATIONS ON 2LNC. BOWEL SOUNDS ACTIVE, NO EDEMA. BRUISING THROUGHOUT LEFT AND RIGHT ARM. TELEMETRY #21 SR. RIGHT FA 20 GAUGE IV WITH NS @ 75 CC/HR. PATIENT VOIDS VIA BEDSIDE COMMODE. GETS UP WITH WALKER AND ASSISTANCE. NO PAIN AT THIS TIME. CALL LIGHT IN REACH. WILL CONTINUE TO MONITOR PATIENT.
[2019-01-14] MEDS ORDERED: HYDROCODONE/APAP 5MG-325MG TAB PO PRN (09:45)
[2019-01-14] MEDS ORDERED: DIATRIZOATE MEGL/DIATRIZOA SOD 30 ML BTL PO ONE (10:01)
[2019-01-14] MEDS: LEVOFLOXACIN 500MG/D5W 100ML 100 ML IV SCH (10:30)
[2019-01-14] MEDS: METHYLPREDNISOLONE SOD SUCC 40 MG/ML VIAL 1ML IV SCH ×2 (10:30→21:39)
[2019-01-14] MEDS: AMLODIPINE BESYLATE 10 MG TAB PO SCH (10:30)
[2019-01-14] MEDS: FAMOTIDINE 20 MG TAB PO SCH ×2 (10:30→16:36)
[2019-01-14] MEDS: HYDRALAZINE HCL 25 MG TAB PO SCH ×3 (10:30→21:40)
--- NOTE | 2019-01-14 10:58 | NUR ---
PATIENT LEFT FOR CT AT THIS TIME VIA WHEELCHAIR.
--- NOTE | 2019-01-14 11:16 | NUR ---
PATIENT BACK FROM CT AT THIS TIME. CALL LIGHT IN REACH WILL CONTINUE TO MONITOR PATIENT.
--- NOTE | 2019-01-14 11:50 | History and Physical ---
PRIMARY CARE PHYSICIAN: Dr. Janeth Stokes. CELL TUBER HAND: Dr. Cipriano Dan. CHIEF COMPLAINT: Increasing shortness of breath, chest pain, wheezing and hypertensive urgency. HISTORY OF PRESENT ILLNESS: A 58-year-old female with right AKA. The patient is disabled. She has complained of increasing shortness of breath and wheezing and subsequently cough with increasing chest pain. She also has productive cough as well. She had a low-grade fever at home and here at 99.1. The patient is still having some wheezing. PAST MEDICAL HISTORY: Alcoholism, smoker with COPD, hypertension, right AKA, peripheral vascular disease secondary to smoking. PAST SURGICAL HISTORY: Right AKA, appendectomy and cholecystectomy. SOCIAL HISTORY: The patient is a smoker. She is also a chronic drinker as well. ALLERGIES: NO KNOWN ALLERGIES. HOME MEDICATIONS: List is not available. PHYSICAL EXAMINATION: VITAL SIGNS: Temperature is 99.1, blood pressure 235/98, pulse rate is 68, respirations 22. GENERAL: The patient is not in acute distress. HEENT: Normocephalic, atraumatic. Pupils reactive. Anicteric. NECK: Supple grossly. PULMONARY: Diminished breath sounds bilaterally with coarse and rhonchi. CARDIOVASCULAR: Regular rate and rhythm. ABDOMEN: Soft. EXTREMITIES: Right AKA. NEUROLOGIC: No focal deficit. LABORATORY DATA: WBC 4.7, hemoglobin 11.6, hematocrit 34.7, and platelets is 102. Chemistry; sodium is 135, potassium 3.4, chloride 101, bicarb 25, BUN is 17, creatinine 1.1, glucose is 104. Urinalysis is moderate bacteria with 2+ protein. Chest x-ray, right lower lobe infiltrate. IMPRESSION: 1. Acute exacerbation of chronic obstructive pulmonary disease. 2. Hypertensive urgency. 3. Right lower lobe pneumonia. 4. Alcoholism. 5. Smoker. 6. Peripheral vascular disease. 7. Chest pain. 8. Thrombocytopenia could be secondary to cirrhosis. PLAN: CT of the chest, abdomen and pelvis without IV contrast. Continue with treatment for acute exacerbation of COPD. Add on antibiotics. Blood pressure control. MD SHANE Willams/HANYL /[id number]
--- NOTE | 2019-01-14 11:50 | NUR ---
PATIENT 1200 BLOOD PRESSURE WAS 199/87. PRN HYDRALAZINE 10 MG IV GIVEN.
--- NOTE | 2019-01-14 11:56 | Diagnostic Imaging Report ---
EXAM: CT Chest abdomen and pelvis WITHOUT intravenous contrast 01/14/2019 9:40 AM INDICATION: Chest pain, abdominal pain, shortness of breath COMPARISON: Chest radiograph of 01/14/2019 TECHNIQUE: Chest was scanned utilizing a multidetector helical scanner from the lung apex through the level of the pubic symphysis without administration of IV contrast. Coronal and sagittal reformations were obtained. Routine protocol was performed. IV CONTRAST: None ORAL CONTRAST: Gastrografin RADIATION DOSE: Total DLP: 492.8 mGy*cm. Dose modulation, iterative reconstruction, and/or weight based adjustment of the mA/kV was utilized to reduce the radiation dose to as low as reasonably achievable. COMPLICATIONS: None FINDINGS: LINES/ TUBES: None. LUNGS AND AIRWAYS: The central airways are patent. Mild bibasilar upper lobe predominant centrilobular emphysema. Bibasilar dependent subsegmental atelectasis. Subpleural cystic changes at the dependent right lower lobe without honeycombing. No focal consolidation. Scattered subcentimeter calcified granulomas. PLEURA: Bilateral small pleural effusions. No pneumothorax. HEART AND MEDIASTINUM: Heterogeneous thyroid gland without focal nodularity. No supraclavicular, mediastinal, hilar, axillary, subpectoral, or internal mammary lymphadenopathy. The heart is not enlarged. There are atherosclerotic calcifications of the coronary arteries, thoracic aorta, and abdominal aorta and major branches. No pericardial effusion. HEPATOBILIARY: Diffuse nodular liver surface contour consistent with cirrhosis. No focal liver lesion. Cholelithiasis with out CT evidence of cholecystitis. SPLEEN: No splenomegaly. PANCREAS: No focal masses or ductal dilatation. ADRENALS: No adrenal nodules. KIDNEYS/URETERS: No hydronephrosis, stones, or solid mass lesions. PELVIC ORGANS/BLADDER: Unremarkable. PERITONEUM / RETROPERITONEUM: Small volume ascites in the abdomen and pelvis. LYMPH NODES: No lymphadenopathy. VESSELS: Atherosclerotic calcifications of the nonaneurysmal abdominal aorta and major branches. GI TRACT: No bowel wall thickening or obstruction. Normal appendix. BONES AND SOFT TISSUES: Diffuse muscle atrophy and subcutaneous soft tissue edema. Diffuse osteopenia. No acute osseous injury. Old healed fracture of the left inferior pubic ramus. IMPRESSION: 1. Hepatic cirrhosis. Small volume abdominal and pelvic ascites. 2. Subpleural cystic changes at the dependent right lower lobe of the lung consistent with nonspecific pulmonary fibrosis. 3. Cholelithiasis without CT evidence of cholecystitis. 4. Atherosclerotic calcifications of the coronary arteries and throughout the aorta and major branches. Signed by: Marzena Guy MD on 01/14/2019 11:53 AM
[2019-01-14] MEDS: QUETIAPINE FUMARATE 25 MG TAB PO PRN (12:54)
--- NOTE | 2019-01-14 12:55 | NUR ---
PATIENT AGITATED PULLING OFF GOWN AND PULLING AT TELEMETRY. PAGED DR. DENIS. NEW ORDER FOR SEROQUEL 12.5MG PO Q6 PRN. NEW ORDERS IMPLEMENTED.
[2019-01-14] MEDS ORDERED: CHLORDIAZEPOXIDE HCL 10 MG CAP PO ONE (14:00)
[2019-01-14] MEDS: CHLORDIAZEPOXIDE HCL 10 MG CAP PO SCH ×2 (14:47→21:40)
[2019-01-14] MEDS ORDERED: SODIUM CHLORIDE FLUSH 10 ML SYR INJ PRN (15:45)
--- NOTE | 2019-01-14 16:55 | NUR ---
WALKING ROUNDS PERFORMED. RIGHT IV FOUND PULLED OUT, PATIENT STATED IT MUST'VE FALLEN OUT WHEN I WAS ASLEEP. CATHETER TIP INTACT AND PRESSURE DRESSING APPLIED.
--- NOTE | 2019-01-14 17:14 | Consultation ---
DATE OF CONSULTATION: 01/14/2019 Cardiology Consultation CHIEF COMPLAINT: The patient is a 58-year-old with chest pain. HISTORY OF PRESENT ILLNESS: The patient is a 58-year-old, who came to the emergency room with chest pressure on and off for 2 days. The patient reported trouble breathing. The patient has never had this type of symptoms in the past. The patient has had no nausea, no vomiting, no abdominal pain, no fevers. PAST MEDICAL HISTORY: Significant for: 1. Hypertension. 2. Severe peripheral vascular disease. 3. Yiwpx-axt-ejsc amputation on the right. 4. Previous cholecystectomy. MEDICATIONS: The patient's medications at home included: 1. Amlodipine. 2. Carvedilol. 3. Clonidine. 4. Isosorbide. 5. Trazodone. 6. Potassium. SOCIAL HISTORY: The patient has been a smoker in the past. FAMILY HISTORY: The patient does have family history of diabetes and hypertension. PHYSICAL EXAMINATION: GENERAL: The patient is a well-developed, well-nourished female, in no obvious distress. VITAL SIGNS: Included temperature of 99.1, pulse of 80, and blood pressure of 146/65. HEAD, EARS, EYES, NOSE, AND THROAT: The patient's cranium was normocephalic and atraumatic. Extraocular muscles were intact. Sclerae were anicteric. Pupils were equal, round, and reactive to light. There is no pallor or cyanosis of the oral mucosa. No erythema or edema of the throat. NECK: Supple. No jugular venous distention. CHEST: Demonstrated rhonchi bilaterally. CARDIAC: Demonstrated normal S1 and S2 with a short 2/6 systolic murmur. ABDOMEN: Demonstrated good bowel sounds. No tenderness and no masses. EXTREMITIES: The patient has a right kjixq-ajo-wjpw amputation. NEUROLOGIC: The patient was alert and oriented. Cranial nerves were intact. Motor strength was intact in all limbs. DIAGNOSTIC DATA: The patient's EKG demonstrated sinus bradycardia with nonspecific ST and T-wave changes. IMPRESSION: The patient's symptoms are very concerning for cardiac ischemia. The patient has known peripheral vascular disease. I would recommend proceeding with left heart catheterization and possible percutaneous transluminal stent placement. I have discussed this recommendation with the patient and she is in agreement to proceed. MD DEENA Arriaga/MODL /[id number] cc: Leonardo Saunders MD
[2019-01-14] MEDS: ZOLPIDEM TARTRATE 10 MG TAB PO SCH (21:39)
[2019-01-15] VITALS (8 sets, daily range): BP systolic 112–217; BP diastolic 56–110
[2019-01-15] MEDS: HYDRALAZINE HCL 20 MG/ML VIAL IV PRN ×3 (00:10→12:48)
[2019-01-15] MEDS: CHLORDIAZEPOXIDE HCL 10 MG CAP PO SCH ×3 (05:06→21:55)
[2019-01-15] MEDS: FAMOTIDINE 20 MG TAB PO SCH ×2 (07:30→16:30)
--- NOTE | 2019-01-15 07:32 | NUR ---
RECEIVED PATIENT RESTING IN BED. NO S/S OF DISTRESS. BED LOW, WHEELS LOCKED, SIDE RAILS X2. CALL LIGHT IN REACH. WILL CONTINUE TO MONITOR PATIENT.
[2019-01-15] MEDS: CLONIDINE HCL 0.1 MG TAB PO SCH ×3 (07:46→19:24)
[2019-01-15] MEDS: HYDRALAZINE HCL 25 MG TAB PO SCH ×3 (07:46→19:24)
[2019-01-15] MEDS: BUSPIRONE HCL 5 MG TAB PO SCH ×2 (07:46→16:37)
[2019-01-15] MEDS: AMLODIPINE BESYLATE 10 MG TAB PO SCH (07:47)
[2019-01-15] MEDS: METHYLPREDNISOLONE SOD SUCC 40 MG/ML VIAL 1ML IV SCH ×2 (09:22→19:24)
[2019-01-15] MEDS: LEVOFLOXACIN 500MG/D5W 100ML 100 ML IV SCH (09:22)
--- NOTE | 2019-01-15 09:30 | NUR ---
PATIENT A/O X3, EVEN RESPIRATIONS ON RA. NO SIGNS OF DISTRESS. PATIENT NPO AT THIS TIME FOR PROCEDURE TODAY. RIGHT HAND 20 GAUGE IV SL. IV INTACT/PATENT. TELEMETRY #21 SR. PATIENT AMBULATES WITH WALKER AND STANDBY ASSIST. NO PAIN OR DISCOMFORT AT THIS TIME, CALL LIGHT IN REACH WILL CONTINUE TO MONITOR PATIENT.
--- NOTE | 2019-01-15 10:40 | NUR ---
Visit made by the Spiritual Care Department Pastoral Visitor, Nicki Harris. PV provided pastoral presence, prayer, hospitality, and supportive listening. Pastoral Visitor informed pt/family of the scope of [facility] and availability. ALEXANDRO JAMES Computer Hardware Designer Spiritual Care Department O: [phone] Pager: [phone] ([phone] number calling from)
--- NOTE | 2019-01-15 11:26 | NUR ---
1125am Spoke with Floor nurse FAB Mendoza regarding brick and blocker aid labor procedural time, still remains after 4pm for Dr Dan arrival time. brick and blocker aid labor staff confirm via phone consent was completed,iv patent and remains NPO. Pt scheduled for [facility] radial approach. michael/fab
[2019-01-15] MEDS: QUETIAPINE FUMARATE 25 MG TAB PO PRN (12:16)
--- NOTE | 2019-01-15 13:04 | NUR ---
RIGHT HAND IV NOT FLUSHING. REMOVED IV, CATHETER TIP INTACT AND PRESSURE DRESSING APPLIED. NEW IV STARTED TO LEFT HAND 20 GAUGE.
--- NOTE | 2019-01-15 15:09 | NUR ---
PAGED DR. RODGERS REGARDING PATIENT AGITATED AND PULLING OUT IV. NEW ORDER FOR ATIVAN 1 MG PO ONCE. NEW ORDERS IMPLEMENTED.
[2019-01-15] MEDS ORDERED: LORAZEPAM 1 MG TAB PO ONE (15:15)
--- NOTE | 2019-01-15 16:58 | NUR ---
DR. RODGERS MAKING ROUNDS. INFORMED PATIENT THAT SURGERY WILL BE TOMORROW MORNING. PATIENT CAN EAT AT THIS TIME BUT NEEDS TO BE NPO AT MIDNIGHT. NEW ORDER FOR ATIVAN 1 MG PO Q8 PRN. NEW ORDERS IMPLEMENTED.
[2019-01-15] MEDS ORDERED: LORAZEPAM 1 MG TAB PO PRN ×2 (17:00)
--- NOTE | 2019-01-15 18:45 | NUR ---
Received bedside report from day shift RN. The patient is laying on the bed, alert and oriented, and not in distress. Call light within reach, bed height low, wheels lock, and side rails up x2.
[2019-01-15] MEDS: ZOLPIDEM TARTRATE 10 MG TAB PO SCH (19:24)
--- NOTE | 2019-01-15 21:20 | NUR ---
At shift change, the patient's BP was recorderd at 203/85 and HR at HR. RN gave scheduled PO medications hydralazine 50 mg and Catapress 0.01 mg around 1929. Patient's current BP (2114) was recorded at 220/98 and 75 HR manually. Received order from Dr. Dan for Catapres 0.1 mg every hour as prn.
--- NOTE | 2019-01-15 21:29 | Consultation ---
DATE OF CONSULTATION: 01/15/2019 REQUESTING PHYSICIAN: Cipriano Dan MD. SCRIPT READER: In the hospital, Leonardo Saunders MD. PRIMARY CARE PHYSICIAN: Janeth Stokes MD. REASON FOR CONSULTATION: Carotid stenosis. HISTORY OF PRESENT ILLNESS: I saw and evaluated this patient on January 15, 2019. She is a 58-year-old lady with a history of atherosclerotic disease and a right above knee amputation. She also has a substance abuse problem with alcohol. She is at least a one pack per day smoker for many years. She was admitted with dyspnea and wheezing as well as chest pain. Cardiac enzymes were not elevated. EKG showed sinus bradycardia with nonspecific ST-T wave changes. Echocardiogram showed preliminary EF of 60% to 65% without any evidence of severe valvular abnormality. Left ventricular end diastolic dimension was 3.7 cm. There was a suspicion of stenosis at the left carotid bulb. Final readings are pending. The patient has been confused, but denies any history of TIA or neurological symptoms. No Amaurosis fugax or focal neurological deficits. There is no clear history of myocardial infarction in the past. The patient denies PND or orthopnea. She does have severe peripheral vascular disease and has had an amputation on the right. PAST MEDICAL HISTORY: Positive for hypertension, peripheral arterial disease, amputation of the right lower extremity, and cholecystectomy. MEDICATIONS: At home include; amlodipine, carvedilol, clonidine, isosorbide, trazodone, and potassium. SOCIAL HISTORY: One pack per day smoker at least for many years, also a history of alcohol abuse. FAMILY HISTORY: Negative for coronary artery disease, but positive for diabetes and hypertension. ALLERGIES: NONE KNOWN. REVIEW OF SYSTEMS: GENERAL: Positive for fatigue and malaise. NEUROLOGIC: Negative for focal weakness in extremities or dysarthria. HEENT: Positive for decreased vision and decreased hearing. CARDIAC: Negative for chest pain or palpitations. PULMONARY: Positive for shortness of breath and wheezing. GI: No constipation or diarrhea. : Negative for hematuria or dysuria. ENDOCRINE: Negative for polyuria or polydipsia. VASCULAR: Positive for amputation of the right lower extremity. SKIN: Negative for rashes or angioedema. HEMATOLOGIC: Negative for clotting or bleeding. INFECTIOUS: Positive for low-grade fevers and sweating. PSYCHIATRIC: Negative for depression or anxiety. PHYSICAL EXAMINATION: GENERAL: Debilitated lady appearing older than her stated age, lying flat in bed on the holloway. VITAL SIGNS: Blood pressure 110/70, pulse 80 and regular, respirations 16 and unlabored. NECK: Supple and nontender. No JVD. CARDIAC: Shows a regular rate and rhythm. Normal S1 and S2. No audible murmur to my exam. LUNGS: Scattered wheezes. No rales. ABDOMEN: Globoid, benign. Good bowel sounds. No hepatosplenomegaly. BACK: No CVA tenderness. No muscular spasm. EXTREMITIES: Well-healed amputation site on the right. No cyanosis or clubbing of the upper extremities. Left lower extremity is acceptably well perfused. VASCULAR: Carotids 2+/2+ bilaterally. There are bilateral carotid bruits. The bruit is louder on the left than the right. Radials and femorals 2+/2+ bilaterally. SKIN: No rashes or nonhealing ulcers. MUSCULOSKELETAL: Full range of motion at all joints. No joint swelling. NEUROLOGIC: Cranial nerves II through XII intact. Sensation intact to light touch and pinprick bilaterally. Strength 5/5 in all extremities. LYMPHATICS: Negative for cervical, clavicular, or femoral adenopathy. LABORATORY DATA: Echocardiogram and carotid ultrasound as above. Sodium 133, potassium 3.9, BUN 18, and creatinine 1.26. Liver function tests are normal. CK and troponin I are also within normal limits. INR 0.95, PT 13.2, PTT 38.5. White count is 5.35, hemoglobin 10.1, hematocrit 30.4, and platelet count 111,000. IMPRESSION: Left carotid stenosis by ultrasound. The patient is not a good historian, but there do not appeared to be any neurological symptoms. PLAN: Plan is for cardiac catheterization tomorrow. Perhaps, bilateral carotid angiogram could also be performed. We will discuss with Dr. Dan and with Dr. Saunders. Thank you very much for asking me to see this nice lady. MD CANDACE AlbaradoL/MODL /[id number]
[2019-01-15] MEDS: CLONIDINE HCL 0.1 MG TAB PO PRN (21:55)
[2019-01-16] VITALS (17 sets, daily range): BP systolic 134–199; BP diastolic 60–106
[2019-01-16] MEDS: CLONIDINE HCL 0.1 MG TAB PO PRN ×3 (00:08→04:24)
[2019-01-16] MEDS: CHLORDIAZEPOXIDE HCL 10 MG CAP PO SCH ×3 (04:32→21:50)
[2019-01-16] MEDS ORDERED: LIDOCAINE HCL 2% LOCAL 20 ML VIAL ONE (06:54)
[2019-01-16] MEDS ORDERED: HEPARIN SOD/SOD CHLORIDE 2,000 ML ONE (06:54)
[2019-01-16] MEDS ORDERED: HEPARIN SOD (PORCINE) 1000 UNIT/ML 30ML ONE (06:54)
[2019-01-16] MEDS ORDERED: MIDAZOLAM HCL 2 MG/2 ML VIAL ONE (06:55)
[2019-01-16] MEDS ORDERED: VERAPAMIL HCL 2.5 MG/ML 2 ML VIAL ONE (06:55)
[2019-01-16] MEDS ORDERED: IOPAMIDOL 370 MG/ML 200 ML INFUS..BTL INJ ONE (06:55)
[2019-01-16] MEDS ORDERED: NITROGLYCERIN/D5W 200 MCG/ML 250 ML ONE ×2 (06:56→08:29)
[2019-01-16] MEDS ORDERED: SODIUM CHLORIDE 0.9% 1000ML 1,000 ML ONE (06:56)
[2019-01-16] MEDS ORDERED: FENTANYL CITRATE/PF 100MCG/2 ML INJ ONE (06:56)
--- NOTE | 2019-01-16 07:05 | NUR ---
REC'D PT ASLEEP, CHEST RISING UP AND DOWN EFFORTLESSLY WITHOUT ANY S/S OF DISTRESS. SIDE RAILS UP X2, BED IN LOWEST POSITION, AND CALL ARCHER WITHIN REACH.
--- NOTE | 2019-01-16 07:10 | NUR ---
PATIENT TAKEN FOR PROCEDURE. CONSENT SIGNED.
[2019-01-16] MEDS ORDERED: HYDRALAZINE HCL 20 MG/ML VIAL ONE (07:53)
[2019-01-16] MEDS ORDERED: LABETALOL HCL 20 ML ONE (07:59)
[2019-01-16] MEDS ORDERED: PHENYLEPHRINE HCL 1% 10 MG/ML VIAL ONE (08:15)
[2019-01-16] MEDS: CLONIDINE HCL 0.1 MG TAB PO SCH ×3 (09:00→21:50)
[2019-01-16] MEDS: AMLODIPINE BESYLATE 10 MG TAB PO SCH (09:00)
[2019-01-16] MEDS: METHYLPREDNISOLONE SOD SUCC 40 MG/ML VIAL 1ML IV SCH ×2 (09:00→21:50)
[2019-01-16] MEDS: HYDRALAZINE HCL 25 MG TAB PO SCH ×3 (09:00→21:51)
[2019-01-16] MEDS: BUSPIRONE HCL 5 MG TAB PO SCH ×2 (09:00→16:55)
--- NOTE | 2019-01-16 09:15 | NUR ---
Patient to room 194. Bedside report from Sweat Band Sewer, RN.
[2019-01-16] MEDS ORDERED: ATROPINE SULFATE 0.1 MG/ML 10ML SYR ONE (09:33)
--- NOTE | 2019-01-16 09:36 | NUR ---
Report rec'd from FAB Aaron for room 111.
--- NOTE | 2019-01-16 09:39 | NUR ---
ICU NURSE CALLED TO REC'V REPORT FROM MED SURG 1.
[2019-01-16] MEDS: LORAZEPAM INJ 2 MG/ML VIAL IV PRN ×3 (10:25→19:50)
[2019-01-16] MEDS: MORPHINE SULFATE 2 MG/ML SYR 1ML IV PRN (13:11)
[2019-01-16] MEDS: ONDANSETRON HCL INJ 2MG/ML 2ML 2 MG/ML VIAL IV PRN (13:11)
[2019-01-16] MEDS: FAMOTIDINE 20 MG TAB PO SCH ×2 (13:12→16:55)
--- NOTE | 2019-01-16 14:08 | Operative Report ---
DATE OF PROCEDURE: 01/16/2019 SURGEON: Cipriano Dan MD PROCEDURE: Left heart catheterization. INDICATION: None. COMPLICATIONS: None. ANESTHESIA: Versed fentanyl and lidocaine. TECHNIQUE: The right groin was draped and prepped in the usual fashion. The area was anesthetized with lidocaine. Standard Seldinger technique was used to place a 6-Serbian sheath into the right femoral artery without difficulty. A JL4 catheter was used to selectively engage the left coronary artery. A 3DRC catheter was used to selectively engage the right coronary artery and a pigtail catheter was used to perform a left ventriculogram. There were no complications. RESULTS: 1. There is a normal left main trunk. 2. There is calcification in the large left anterior descending artery and a medium-sized diagonal branch. There was some mild nonsignificant disease in the left anterior descending artery and diagonal branch. 3. The AV circumflex artery was a small vessel, which gave rise to a small bifurcating obtuse marginal branch. There was minimal disease in the circumflex system. 4. There was a large dominant right coronary artery with minimal disease. 5. There was normal left ventricular size and function with an ejection fraction of 60%. CONCLUSION: The patient has minimal coronary artery disease with normal left ventricular size and function. Cipriano Dan MD [facility]/MODL /[id number] cc: Leonardo Saunders MD
[2019-01-16] MEDS: LEVOFLOXACIN 500MG/D5W 100ML 100 ML IV SCH (14:22)
[2019-01-16] MEDS ORDERED: LORAZEPAM 1 MG TAB PO PRN ×2 (14:30→15:00)
[2019-01-16] MEDS: ZOLPIDEM TARTRATE 10 MG TAB PO SCH (22:14)
[2019-01-17] VITALS (32 sets, daily range): BP systolic 104–224; BP diastolic 62–193
[2019-01-17] MEDS: LORAZEPAM INJ 2 MG/ML VIAL IV PRN ×4 (01:23→21:30)
[2019-01-17] MEDS: ZIPRASIDONE 20 MG VIAL IM PRN ×3 (02:25→22:39)
[2019-01-17] MEDS: WATER STERILE 10 ML VIAL INJ PRN ×3 (02:25→22:39)
[2019-01-17] MEDS: QUETIAPINE FUMARATE 25 MG TAB PO PRN ×3 (02:26→10:03)
[2019-01-17] MEDS: CHLORDIAZEPOXIDE HCL 10 MG CAP PO SCH ×4 (06:00→23:23)
--- NOTE | 2019-01-17 06:17 | NUR ---
R groin dressing clean, dry & intact. No s/s of bleeding or hematoma. Pt denies pain through shift.
[2019-01-17] MEDS: NITROGLYCERIN/D5W 200 MCG/ML 250 ML IV SCH (07:09)
[2019-01-17] MEDS: FAMOTIDINE 20 MG TAB PO SCH ×2 (07:30→16:30)
[2019-01-17] MEDS ORDERED: CLONIDINE HCL 0.1 MG TAB PO PRN (07:45)
[2019-01-17] MEDS: NICOTINE 21 MG/EA PATCH TOP SCH (08:37)
[2019-01-17] MEDS: CLONIDINE HCL 0.1 MG TAB PO SCH ×3 (08:37→21:00)
[2019-01-17] MEDS: METHYLPREDNISOLONE SOD SUCC 40 MG/ML VIAL 1ML IV SCH ×2 (08:37→21:37)
[2019-01-17] MEDS: BUSPIRONE HCL 5 MG TAB PO SCH ×2 (08:37→16:51)
[2019-01-17] MEDS: HYDRALAZINE HCL 25 MG TAB PO SCH ×3 (08:37→21:00)
[2019-01-17] MEDS: CARVEDILOL 12.5 MG TAB PO SCH ×2 (08:38→16:51)
[2019-01-17] MEDS: AMLODIPINE BESYLATE 10 MG TAB PO SCH (08:38)
--- NOTE | 2019-01-17 08:38 | NUR ---
pt wont stay awake long enough to safely admin po medications. currently sleeping and on nitro drip. MD rounded and aware
[2019-01-17] MEDS ORDERED: AMLODIPINE BESYLATE 10 MG TAB PO SCH (09:00)
--- NOTE | 2019-01-17 10:23 | NUR ---
pt awoke, very agitated, pulling off clothing and lines, yelling.prn meds admin
[2019-01-17] MEDS ORDERED: CEFTRIAXONE SOD 1 GM/NS 50 ML 50 ML IV SCH (12:00)
[2019-01-17] MEDS ORDERED: ZOLPIDEM TARTRATE 10 MG TAB PO PRN (12:15)
[2019-01-17] MEDS: HYDROMORPHONE 1MG/1ML INJ IV PRN ×3 (12:25→19:18)
[2019-01-17] MEDS: CEFTRIAXONE SOD 1 GM/NS 50 ML 50 ML IV SCH (12:33)
[2019-01-17] MEDS ORDERED: WATER STERILE 10 ML VIAL INJ PRN (12:45)
[2019-01-17] MEDS: DOXYCYCLINE 100MG/NS 100ML 100 ML IV SCH (13:08)
--- NOTE | 2019-01-17 15:32 | NUR ---
dr mandel was paged for psych consult
[2019-01-17] MEDS: PAROXETINE HCL 20 MG TAB PO SCH (21:00)
--- NOTE | 2019-01-17 21:52 | Progress Note ---
DATE: 01/17/2019 REASON FOR CONSULTATION: Carotid stenosis and peripheral vascular disease. REQUESTED BY: Cipriano Dan M.D. SUBJECTIVE: Sitting up in bed, no complaints, a little bit confused. OBJECTIVE: VITAL SIGNS: Blood pressure 130/72, pulse 80 and regular, and respirations 16, unlabored. NECK: Supple. Nontender. No JVD. CARDIAC: Shows regular rate and rhythm. Normal S1, S2. No S3, S4, rub, or murmur. LUNGS: Scattered wheezes. No rales. VASCULAR: Bilateral carotid bruits unchanged, bruit is louder on the left than the right. Radials and femorals 2+/2+ bilateral. NEUROLOGIC: Cranial nerves II through XII intact. Sensation intact to light touch and pinprick bilaterally. LABORATORY AND DIAGNOSTIC DATA: CT angiogram pending. White count 5.3, hemoglobin 10.1, and hematocrit 30.4. IMPRESSION: Stable. PLAN: Awaiting further evaluation of the carotid disease with CT angio. MD CANDACE AlbaradoL/MODL /[id number]
[2019-01-18] VITALS (24 sets, daily range): BP systolic 125–174; BP diastolic 85–159
[2019-01-18] MEDS: DOXYCYCLINE 100MG/NS 100ML 100 ML IV SCH ×3 (01:30→23:08)
[2019-01-18] MEDS: HYDROMORPHONE 1MG/1ML INJ IV PRN ×2 (01:31→10:45)
[2019-01-18] MEDS: LORAZEPAM INJ 2 MG/ML VIAL IV PRN ×6 (01:51→20:17)
[2019-01-18] MEDS: CHLORDIAZEPOXIDE HCL 10 MG CAP PO SCH ×3 (05:40→23:08)
[2019-01-18 06:21] LABS: BASOPHILS % 0.2 % (0.0-1.0); HEMATOCRIT 34.7 % (34.2-44.1); HEMOGLOBIN 12.1 g/dL (12.0-16.0); MEAN CORPUSCULAR HGB CONC 34.9 g/dL (31-35); MEAN CORPUSCULAR VOLUME 100.3 fL (81-99); MONOCYTES # (AUTO) 0.7 (0.2-0.8); MONOCYTES % 7.8 % (4.4-11.3); NEUTROPHILS # (AUTO) 6.6 (2.1-6.9); PLATELET COUNT 149 x10e3/uL (140-360); RED BLOOD COUNT 3.46 x10e6/uL (3.6-5.1); RED CELL DISTRIBUTION WIDTH 13.7 % (11.7-14.4)
[2019-01-18 06:23] LABS: POTASSIUM 3.5 mmol/L (3.5-5.1)
[2019-01-18 06:24] LABS: ANION GAP 16.5 mmol/L (8-16); CALCIUM 9.8 mg/dL (8.4-10.2); CREATININE, SERUM 1.25 mg/dL (0.57-1.11)
[2019-01-18] MEDS: NITROGLYCERIN/D5W 200 MCG/ML 250 ML IV SCH (07:00)
[2019-01-18] MEDS: FAMOTIDINE 20 MG TAB PO SCH ×3 (07:30→16:12)
[2019-01-18] MEDS: BUSPIRONE HCL 5 MG TAB PO SCH ×3 (09:00→16:13)
[2019-01-18] MEDS: CARVEDILOL 12.5 MG TAB PO SCH ×3 (09:00→16:13)
[2019-01-18] MEDS: CLONIDINE HCL 0.1 MG TAB PO SCH ×3 (09:00→20:18)
[2019-01-18] MEDS: AMLODIPINE BESYLATE 10 MG TAB PO SCH (09:00)
[2019-01-18] MEDS: HYDRALAZINE HCL 25 MG TAB PO SCH ×3 (09:00→20:18)
[2019-01-18] MEDS: NICOTINE 21 MG/EA PATCH TOP SCH (09:32)
[2019-01-18] MEDS: METHYLPREDNISOLONE SOD SUCC 40 MG/ML VIAL 1ML IV SCH ×2 (09:32→20:17)
[2019-01-18] MEDS: QUETIAPINE FUMARATE 25 MG TAB PO PRN (11:00)
--- NOTE | 2019-01-18 11:03 | NUR ---
patient calm when eyes closed (sleeping). patient wakes up rocking forwards and backwards, moaning, "crying" but no tears. pt will follow commands when you can get her to open eyes and focus. then she goes back to rocking in bed and moaning. pt accepted two spoonfuls of chocolate pudding for am medications but nothing more. pt incontinent of large amounts of urine. linens and diaper changed. skin intact with petechiae on upper extremities.
[2019-01-18] MEDS: WATER STERILE 10 ML VIAL INJ PRN (11:12)
[2019-01-18] MEDS: ZIPRASIDONE 20 MG VIAL IM PRN (11:12)
[2019-01-18] MEDS: CEFTRIAXONE SOD 1 GM/NS 50 ML 50 ML IV SCH (14:10)
--- NOTE | 2019-01-18 15:27 | NUR ---
new p.iv initiated as right f/a iv leaking. pt thrashing and yelling in bed. attempted to kick staff during iv placement. pt now resting calmly in bed safely at this time. dr. banda at bedside recently and updated with patient status and behavior.
[2019-01-18] MEDS ORDERED: SODIUM CHLORIDE 0.9% 250ML 250 ML ONE (15:54)
[2019-01-18] MEDS: PAROXETINE HCL 20 MG TAB PO SCH (20:18)
[2019-01-19] VITALS (23 sets, daily range): BP systolic 78–162; BP diastolic 57–129
[2019-01-19] MEDS: DOXYCYCLINE 100MG/NS 100ML 100 ML IV SCH ×2 (01:49→13:53)
[2019-01-19] MEDS: CHLORDIAZEPOXIDE HCL 10 MG CAP PO SCH ×3 (06:00→14:10)
[2019-01-19] MEDS: NITROGLYCERIN/D5W 200 MCG/ML 250 ML IV SCH (07:00)
[2019-01-19] MEDS: LORAZEPAM INJ 2 MG/ML VIAL IV PRN ×4 (07:04→21:54)
[2019-01-19] MEDS: FAMOTIDINE 20 MG TAB PO SCH ×2 (07:59→16:10)
[2019-01-19] MEDS: METHYLPREDNISOLONE SOD SUCC 40 MG/ML VIAL 1ML IV SCH ×2 (08:01→20:49)
[2019-01-19] MEDS: HYDRALAZINE HCL 25 MG TAB PO SCH ×3 (08:12→20:50)
[2019-01-19] MEDS: BUSPIRONE HCL 5 MG TAB PO SCH ×2 (08:12→16:10)
[2019-01-19] MEDS: CARVEDILOL 12.5 MG TAB PO SCH ×2 (08:13→16:10)
[2019-01-19] MEDS: CLONIDINE HCL 0.1 MG TAB PO SCH (08:13)
[2019-01-19] MEDS: QUETIAPINE FUMARATE 25 MG TAB PO PRN (08:14)
[2019-01-19] MEDS: AMLODIPINE BESYLATE 10 MG TAB PO SCH (08:14)
[2019-01-19] MEDS: NICOTINE 21 MG/EA PATCH TOP SCH (08:14)
[2019-01-19] MEDS ORDERED: HYDROCODONE/APAP 5MG-325MG TAB PO PRN (09:00)
[2019-01-19] MEDS: HYDROMORPHONE 1MG/1ML INJ IV PRN ×2 (09:00→14:56)
[2019-01-19] MEDS: CLONIDINE HCL 0.2 MG/24 HR 1 EA PATCH TOP SCH (10:53)
[2019-01-19] MEDS: CEFTRIAXONE SOD 1 GM/NS 50 ML 50 ML IV SCH (13:09)
--- NOTE | 2019-01-19 14:24 | NUR ---
Dr. Yu (psych) paged at 1200, spoke with answering service to confirm original consult was communicated.
[2019-01-19] MEDS: PAROXETINE HCL 20 MG TAB PO SCH (20:49)
[2019-01-20] VITALS (28 sets, daily range): BP systolic 89–230; BP diastolic 31–128
[2019-01-20] MEDS: HYDROMORPHONE 1MG/1ML INJ IV PRN ×5 (00:31→22:17)
[2019-01-20] MEDS: DOXYCYCLINE 100MG/NS 100ML 100 ML IV SCH ×2 (02:08→15:31)
[2019-01-20] MEDS: CHLORDIAZEPOXIDE HCL 10 MG CAP PO SCH ×5 (05:15→22:00)
[2019-01-20 05:17] LABS: BASOPHILS % 0.2 % (0.0-1.0); HEMATOCRIT 36.6 % (34.2-44.1); HEMOGLOBIN 12.3 g/dL (12.0-16.0); LYMPHOCYTES # (AUTO) 0.9 (1.0-3.2); LYMPHOCYTES % 13.5 % (18.0-39.1); MEAN CORPUSCULAR HEMOGLOBIN 33.9 pg (28-32); MEAN CORPUSCULAR HGB CONC 33.6 g/dL (31-35); MEAN CORPUSCULAR VOLUME 100.8 fL (81-99); MONOCYTES # (AUTO) 0.2 (0.2-0.8); MONOCYTES % 2.3 % (4.4-11.3); NEUTROPHILS # (AUTO) 5.3 (2.1-6.9); NEUTROPHILS % 83.1 % (38.7-80.0); PLATELET COUNT 136 x10e3/uL (140-360); RED BLOOD COUNT 3.63 x10e6/uL (3.6-5.1); RED CELL DISTRIBUTION WIDTH 13.7 % (11.7-14.4)
[2019-01-20 05:38] LABS: ALBUMIN 2.8 g/dL (3.5-5.0); ALBUMIN/GLOBULIN RATIO 0.7 (0.8-2.0); ANION GAP 17.9 mmol/L (8-16); CREATININE, SERUM 1.18 mg/dL (0.57-1.11)
[2019-01-20 05:41] LABS: POTASSIUM 2.9 mmol/L (3.5-5.1)
[2019-01-20] MEDS ORDERED: POTASSIUM CHLORIDE 20MEQ/100ML 100 ML IV ONE ×2 (06:45)
[2019-01-20] MEDS: NITROGLYCERIN/D5W 200 MCG/ML 250 ML IV SCH ×2 (07:00→20:20)
[2019-01-20] MEDS: FAMOTIDINE 20 MG TAB PO SCH ×2 (07:30→16:30)
[2019-01-20] MEDS: HYDRALAZINE HCL 25 MG TAB PO SCH ×5 (09:00→21:00)
[2019-01-20] MEDS: BUSPIRONE HCL 5 MG TAB PO SCH (09:00)
[2019-01-20] MEDS: CARVEDILOL 12.5 MG TAB PO SCH ×2 (09:00→17:00)
[2019-01-20] MEDS: AMLODIPINE BESYLATE 10 MG TAB PO SCH (09:00)
[2019-01-20] MEDS: METHYLPREDNISOLONE SOD SUCC 40 MG/ML VIAL 1ML IV SCH ×2 (09:20→19:53)
[2019-01-20] MEDS: NICOTINE 21 MG/EA PATCH TOP SCH (09:20)
--- NOTE | 2019-01-20 12:27 | NUR ---
Nutrition Intervention Note RD Recommendation(s) for Physician: - Continue current diet - Recommend Ensure Compact TID for adequacy - If pt continues with poor po intake, recommend DHT placement and begin TF of Glucerna 1.2 at 10 ml/hr. Advance as tolerated to goal rate of 60 ml/hr (to provide 1584 kcal and 79 gm protein). - Water flushes per MD. Pt meets criteria for mild protein calorie malnutrition. Plan of Care: RD following, monitoring for tolerance and adequacy Nutrition reason for involvement: LOS RD Assessment 01/20: 58 YOF admitted for chest pain, HTN, and COPD exacerbation. Pt seen today for LOS. Pt sleeping at time of visit, no family present at bedside. Per chart pt very combative since admit when awake and per RN has been spitting out meds. Per chart pt not eating, would only take a few bites of pudding yesterday. Pt discussed during am rounds. Will monitor and continue to follow. Principal Problems/Diagnoses: Chest pain, HTN, COPD exacerbation PMH: R AKA, ETOH abuse, cholecystectomy, COPD, HTN, PVD GI: No BM reported/recorded Skin: intact Labs: 01/20: Na 142, K 2.9, BUN 27, Cr 1.18, Gluc 130- on steriods Meds: solumedrol, pepcid, seroquel, geodon, zofran Ht: 61 in Wt:105.38 lb BMI:19.9 AIBW:96.6 lb (43.9 kg) Malnutrition Evaluation (date of eval) The patient meets criteria for MILD protein-calorie malnutrition. Energy intake: <50% of estimated energy requirements for >5 days Weight loss: UTD Fat loss: Mild Muscle loss: Mild supporting Evidence: Fluid accumulation: none Functional Status: unable to evaluate Nutrition Prescription (Diet Order): Estimated Nutritional Needs: 8196-8013 calories/day (28-35 kcal/kg CBW) 48-81 g protein/day (1-1.7 g pro/kg CBW) Diet Adequacy: Not meeting calorie needs, Not meeting protein needs Diet Education Needs Assessment: Diet education indicated, but patient not appropriate for education at this time. Nutrition Care Level: Mod Nutrition Diagnosis: Inadequate energy and protein intake related to mentation as evidenced by poor intake and not meeting needs. Goal: Patient will meet 75-100% of estimated needs by follow up Progress: N/A Interventions: Fat and mineral modified diet, Commercial beverage, Commercial food, Composition, Rate, Route, IVF, Recommended Modifications Monitoring/Evaluation: Total energy intake, Total protein intake, Formula/Solution, Prescription medication, Modified diet, Liquid supplement, Weight change Signed: Maisha Chino RD, LD, [facility]
[2019-01-20] MEDS: CEFTRIAXONE SOD 1 GM/NS 50 ML 50 ML IV SCH (13:45)
[2019-01-20] MEDS: LORAZEPAM INJ 2 MG/ML VIAL IM PRN ×2 (13:54→20:19)
[2019-01-20] MEDS: HALOPERIDOL LACTATE 5 MG/ML VIAL IM PRN (17:35)
--- NOTE | 2019-01-20 18:45 | NUR ---
pt extremely agitated, thrashing and kicking around. will medicate w/PRN. BP elevated SBP>200. medicated w/hydralazine IV. report given to FAB Ball
[2019-01-20] MEDS: HYDRALAZINE HCL 20 MG/ML VIAL IV PRN (18:57)
[2019-01-20] MEDS: OLANZAPINE 5 MG TAB PO PRN ×2 (19:50→20:20)
[2019-01-20] MEDS: VALPROATE 250MG/5ML ORAL LIQ 5ml PO SCH ×3 (19:53→21:00)
[2019-01-20] MEDS: PAROXETINE HCL 20 MG TAB PO SCH ×3 (19:53→21:00)
--- NOTE | 2019-01-20 20:00 | NUR ---
Pt's BP remains >230, PRN hydralizine was given @ 19:00. Pt refusing to take PO scheduled hydralazine and PO PRN clonidine. Pt restarted on nitro gtt.
[2019-01-21] VITALS (30 sets, daily range): BP systolic 137–225; BP diastolic 56–92
[2019-01-21] MEDS: HYDROMORPHONE 1MG/1ML INJ IV PRN ×2 (01:19→05:15)
[2019-01-21] MEDS: DOXYCYCLINE 100MG/NS 100ML 100 ML IV SCH ×2 (01:47→15:46)
[2019-01-21] MEDS: HYDRALAZINE HCL 20 MG/ML VIAL IV PRN ×2 (02:45→07:50)
[2019-01-21] MEDS: LORAZEPAM INJ 2 MG/ML VIAL IM PRN (03:32)
[2019-01-21 05:19] LABS: ANION GAP 16.4 mmol/L (8-16); CALCIUM 8.7 mg/dL (8.4-10.2); CREATININE, SERUM 1.5 mg/dL (0.57-1.11); POTASSIUM 3.4 mmol/L (3.5-5.1)
[2019-01-21 05:33] LABS: MAGNESIUM 1.4 MG/DL (1.3-2.1)
[2019-01-21] MEDS: FAMOTIDINE 20 MG TAB PO SCH ×2 (07:30→16:30)
[2019-01-21] MEDS: AMLODIPINE BESYLATE 10 MG TAB PO SCH (07:45)
[2019-01-21] MEDS: VALPROATE 250MG/5ML ORAL LIQ 5ml PO SCH ×2 (07:46→20:00)
[2019-01-21] MEDS: CARVEDILOL 12.5 MG TAB PO SCH ×2 (07:46→17:00)
[2019-01-21] MEDS: NICOTINE 21 MG/EA PATCH TOP SCH (07:48)
[2019-01-21] MEDS: METHYLPREDNISOLONE SOD SUCC 40 MG/ML VIAL 1ML IV SCH ×3 (07:48→20:00)
--- NOTE | 2019-01-21 08:00 | NUR ---
Vu with Psych to bedside; aware of BP, patient actively combative, and unable to swallow due to severe risk for aspiration.
[2019-01-21] MEDS ORDERED: MAGNESIUM SULFATE 2GM/50ML IV ONE (08:30)
--- NOTE | 2019-01-21 08:45 | NUR ---
Dr Fede Dan to bedside. Patient thrashing in bed and altered.
[2019-01-21] MEDS ORDERED: MAGNESIUM SULFATE 2GM/50ML 50 ML IV ONE (09:00)
--- NOTE | 2019-01-21 09:00 | NUR ---
Dr Saunders to bedside; orders rec'd. Aware of BP, active combativeness, and, inabililty to swallow.
[2019-01-21] MEDS: D5.45%NS/KCL 20MEQ 1,000 ML IV SCH ×2 (09:27→19:48)
[2019-01-21] MEDS: HALOPERIDOL LACTATE 5 MG/ML VIAL IM PRN (09:46)
--- NOTE | 2019-01-21 11:25 | Progress Note ---
DATE: 01/21/2019 Psychiatric Progress Note SUBJECTIVE: The patient evaluated and events noted. The patient is in the ICU. She is still very confused. She is not following command. She is calm at this time. She is getting p.r.n. IM medication. She is unable to get any p.o. medication due to aspiration risk. She has not received any Depakene. As per nursing staff, the patient is still confused intermittently agitated. Blood pressure elevated 159/79. ASSESSMENT: Unspecified psychosis/delirium. PLAN: 1. Continue Ativan 0.5 IM q.4 hours p.r.n. 2. Continue Librium 10 mg p.o. q. 8 hours. 3. . 4. Continue Haldol 2 mg IM q.6 hours p.r.n. 5. Continue Zyprexa 2.5 mg p.o. q.6 hours p.r.n. 6. Continue Depakene 125 mg p.o. q.12 hours. 7. Monitor for agitation by the nursing staff. 8. Discussed with pharmacy, they do not have any Risperdal M-Tab or Zyprexa Zydis at this time. No ODT. Dictated by aJzmín Urrtuia PA-C Mer Kirkland MD [facility]/MODL /[id number]
[2019-01-21] MEDS: CHLORDIAZEPOXIDE HCL 10 MG CAP PO SCH (11:44)
[2019-01-21] MEDS: OLANZAPINE 5 MG TAB PO PRN ×2 (11:44→20:00)
[2019-01-21] MEDS: NICARDIPINE 20MG/200ML PREMIX 200 ML IV PRN ×3 (11:45→23:09)
[2019-01-21] MEDS: LORAZEPAM INJ 2 MG/ML VIAL IV PRN ×3 (11:45→21:46)
--- NOTE | 2019-01-21 12:25 | Consultation ---
DATE OF CONSULTATION: 01/20/2019 Psychiatric Consultation REASON FOR CONSULTATION: To evaluate the patient's psychosis. HISTORY OF PRESENT ILLNESS: The patient is a 58-year-old female, admitted to the hospital for chest pain and hypertension. Psychiatric consultation is called to evaluate the patient's psychosis. As per the medical record, the patient has history of alcoholism, smoker with COPD, hypertension, right AKA, peripheral vascular disease. She is disabled, came to the hospital with shortness of breath, chest pain, wheezing, and hypertensive urgency. Upon evaluation today, nursing staff reports that the patient became more confused and agitated after she returned from the medical lab specialist. She has been agitated, trying to get out of bed, restless. She is not redirectable. The patient appears to be getting p.r.n. IM and IV continuously. She is unable to swallow. The patient has been refusing to take medications due to her confusion. The patient is lying in the bed. She is alert awake, but she is not following commands. She is calm at this time. From our nursing staff report that she recently just received sedative medication. As per nurse, the patient has not been eating or sleeping. She has been restrained at this time. PAST PSYCHIATRIC HISTORY: The patient does not appear to have any past psych history in the record. Details are not available at this time. She does have a history of alcoholism. FAMILY HISTORY: Unknown. SOCIAL HISTORY: The patient lives with her mother. MENTAL STATUS EXAM: The patient is a middle-aged, elderly female. She is confused. Not following commands. She is intermittently agitated and restless. She is not able to answer question at this time. Psychomotor state is passive. Thought process is unable to follow commands. Unable to report suicidal or homicidal ideation. Insight and judgment are impaired. CURRENT MEDICATIONS: 1. Dilaudid. 2. BuSpar 30 mg p.o. b.i.d. 3. Geodon p.r.n. IM. 4. Ativan p.r.n. IV. 5. Librium. 6. Hydralazine. 7. Doxycycline. 8. Paxil 40 mg p.o. at bedtime. 9. Nitroglycerin/dextrose. 10. Methylprednisolone. 11. Ceftriaxone. 12. Nicotine. 13. Clonidine. 14. Ondansetron. 15. Carvedilol. 16. Famotidine. 17. Amlodipine. 18. . 19. Glimepiride. LABORATORY DATA: Current labs; WBC 6.39, RBC 3.63, hemoglobin 12.3, hematocrit 36.6, platelet count 136. Sodium 144, potassium 3.4, chloride 110, CO2 21, BUN 39, creatinine 1.50. AST 65, ALT 36. ASSESSMENT: 1. Unspecified psychosis/delirium. 2. History of alcohol abuse. 3. History of depression?.. PLAN: 1. Discontinue p.r.n. Geodon. 2. Add Haldol 2 mg IM q.6 hours p.r.n. 3. Reduce and change Ativan IV to IM. 4. Continue Librium. 5. Add Depakote liquid formula 125 mg p.o. q.12 hours. 6. Reduce Paxil to 30 mg p.o. at bedtime. 7. Discontinue BuSpar due to blood pressure. 8. Add Zyprexa 2.5 mg p.o. q.6 hours p.r.n. 9. Advised nurse to contact Medical for possible CT scan of the head. 10. Monitor for agitation. Thank you for this consultation. We will continue to follow the patient with you during the hospital stay. Dictated by Jazmín Urrutia PA-C MD ROSI CeballosV/RANCHO /[id number]
[2019-01-21] MEDS: HYDRALAZINE HCL 25 MG TAB PO SCH ×2 (14:01→20:00)
[2019-01-21] MEDS ORDERED: MIDAZOLAM HCL 2 MG/2 ML VIAL ONE (14:31)
[2019-01-21] MEDS ORDERED: MIDAZOLAM HCL 2 MG/2 ML VIAL IV NR (14:51)
--- NOTE | 2019-01-21 15:28 | Diagnostic Imaging Report ---
EXAMINATION: CHEST XRAY LINE PLACEMENT INDICATION: Line placement COMPARISON: Ultrasound guided line placement of earlier the same day. FINDINGS: LINES/TUBES:Interval placement of right IJ central venous catheter terminating in the superior vena cava. EKG leads overlie the chest. LUNGS:The lungs are well-inflated. No focal consolidation or pulmonary edema. PLEURA:No pleural effusion or pneumothorax. MEDIASTINUM:The cardiomediastinal silhouette appears normal in size and shape. BONES/SOFT TISSUES:Old healed lateral left rib fractures. No acute osseous injury. ABDOMEN:No free air under the diaphragm. IMPRESSION: Interval right IJ central line placement with tip at the superior vena cava. No focal pneumonia or pulmonary edema. Signed by: Marzena Guy MD on 01/21/2019 3:25 PM
[2019-01-21] MEDS: CEFTRIAXONE SOD 1 GM/NS 50 ML 50 ML IV SCH (15:46)
--- NOTE | 2019-01-21 18:30 | Diagnostic Imaging Report ---
History:Altered mental status, alcohol withdrawal. Comparison studies:None Technique: Axial images were obtained from the skull base to the vertex. Coronal and sagittal images reconstructed from the axial data. Intravenous contrast: None Dose modulation, iterative reconstruction, and/or weight based adjustment of the mA/kV was utilized to reduce the radiation dose to as low as reasonably achievable. Findings: Scalp/skull: No abnormalities. Extra-axial spaces: No masses. No fluid collections. Brain sulci: Mildly prominent. Ventricles: Mild compensatory dilatation. No hydrocephalus. Parenchyma: Scattered hypodensities in the supratentorial white matter are small vessel ischemic changes. Subcortical hypodensity at the left precuneus, with mild volume loss, likely related to encephalomalacia. No masses, hemorrhage, acute or chronic cortical vascular insults. Sellar/suprasellar region: No abnormalities. Craniocervical junction: Patent foramen magnum. No Chiari one malformation. Incidental findings: Atherosclerotic calcifications in the carotid siphons . Impression: No acute abnormalities. Chronic findings: 1. Mild generalized volume loss. 2. Moderate supratentorial white matter small vessel ischemic changes. Signed by: DR Corwin Alcaraz M.D. on 01/21/2019 6:26 PM
[2019-01-21] MEDS ORDERED: PAROXETINE HCL 20 MG TAB PO SCH (21:00)
[2019-01-22] VITALS (49 sets, daily range): BP systolic 107–225; BP diastolic 42–94
[2019-01-22] MEDS: LORAZEPAM INJ 2 MG/ML VIAL IV PRN ×2 (01:23→04:09)
[2019-01-22] MEDS: DOXYCYCLINE 100MG/NS 100ML 100 ML IV SCH ×2 (01:35→13:34)
[2019-01-22] MEDS: NICARDIPINE 20MG/200ML PREMIX 200 ML IV PRN ×8 (01:55→21:24)
--- NOTE | 2019-01-22 01:57 | Progress Note ---
DATE: 01/21/2019 REASON FOR CONSULTATION: Carotid stenosis and peripheral vascular disease. REQUESTED BY: Cipriano Dan MD SUBJECTIVE: Confused and combative. Has just had central line placement after sedation and is sleepy. OBJECTIVE: VITAL SIGNS: Blood pressure 120/70, pulse 80 and regular, and respirations 16 and unlabored. NECK: Supple and nontender. No JVD. CARDIAC: Regular rate and rhythm. Normal S1, S2. No S3, S4, rub, or murmur. LUNGS: Scattered wheezes. No rales. VASCULAR: Bilateral carotid bruits unchanged. Bruit is louder on the left than the right. Radials and femorals 2+/2+ bilaterally. NEUROLOGIC: Sleepy and not cooperative this evening. LABORATORY DATA AND IMAGING: CT scan of the brain performed today shows mild generalized volume loss with moderate supratentorial white matter small vessel ischemic changes. No acute infarct or old infarct. IMPRESSION: The patient is being followed by Psychiatry. She is combative. Not a surgical candidate in the near future. We will follow. MD CANDACE AlbaradoL/MODL /[id number]
[2019-01-22] MEDS: D5.45%NS/KCL 20MEQ 1,000 ML IV SCH ×2 (04:30→13:35)
[2019-01-22] MEDS: HYDRALAZINE HCL 20 MG/ML VIAL IV PRN (04:58)
[2019-01-22] MEDS: FAMOTIDINE 20 MG TAB PO SCH ×2 (07:14→16:27)
[2019-01-22] MEDS: NICOTINE 21 MG/EA PATCH TOP SCH (08:34)
[2019-01-22] MEDS: VALPROATE 250MG/5ML ORAL LIQ 5ml PO SCH ×4 (08:34→20:13)
[2019-01-22] MEDS: HYDRALAZINE HCL 25 MG TAB PO SCH ×3 (08:34→20:12)
[2019-01-22] MEDS: METHYLPREDNISOLONE SOD SUCC 40 MG/ML VIAL 1ML IV SCH ×2 (08:34→20:12)
[2019-01-22] MEDS: CARVEDILOL 12.5 MG TAB PO SCH ×2 (08:34→16:33)
[2019-01-22] MEDS: AMLODIPINE BESYLATE 10 MG TAB PO SCH (08:35)
[2019-01-22] MEDS ORDERED: LORAZEPAM INJ 2 MG/ML VIAL IV PRN (09:00)
[2019-01-22] MEDS ORDERED: HALOPERIDOL LACTATE 5 MG/ML VIAL IM PRN (09:00)
[2019-01-22] MEDS ORDERED: QUETIAPINE FUMARATE 25 MG TAB PO PRN (09:00)
[2019-01-22 09:21] LABS: BASOPHILS % 0.1 % (0.0-1.0); HEMATOCRIT 33.1 % (34.2-44.1); LYMPHOCYTES # (AUTO) 0.5 (1.0-3.2); MEAN CORPUSCULAR HEMOGLOBIN 34.3 pg (28-32); MEAN CORPUSCULAR HGB CONC 33.2 g/dL (31-35); MEAN CORPUSCULAR VOLUME 103.1 fL (81-99); MONOCYTES # (AUTO) 0.3 (0.2-0.8); MONOCYTES % 2.5 % (4.4-11.3); NEUTROPHILS # (AUTO) 10.9 (2.1-6.9); NEUTROPHILS % 92.3 % (38.7-80.0); PLATELET COUNT 144 x10e3/uL (140-360); RED BLOOD COUNT 3.21 x10e6/uL (3.6-5.1)
[2019-01-22 09:39] LABS: ANION GAP 16.6 mmol/L (8-16); CALCIUM 8.1 mg/dL (8.4-10.2); CREATININE, SERUM 1.3 mg/dL (0.57-1.11); POTASSIUM 3.6 mmol/L (3.5-5.1)
[2019-01-22 10:56] LABS: ANISOCYTOSIS MODERATE; BAND NEUTROPHILS % (MANUAL) 1 %; LYMPHOCYTES % (MANUAL) 2 % (19-48); MONOCYTES % (MANUAL) 2 % (3.4-9.0); NEUTROPHILS % (MANUAL) 95 % (40-74); POIKILOCYTOSIS SLIGHT; RBC MORPHOLOGY COMMENT ABNORMAL
[2019-01-22 10:57] LABS: PLATELET ESTIMATE ADEQUATE; PLATELET MORPHOLOGY COMMENT FEW LARGE
--- NOTE | 2019-01-22 11:17 | Progress Note ---
DATE: 01/22/2019 Psychiatric Progress Note SUBJECTIVE: The patient was evaluated and events noted. The patient is in the ICU. She is sedated. She is in restraints. She is unable to answer any questions at this time. As she has been getting p.r.n. IM medication, she has been able to take all of her p.o. medication due to aspiration risk. She does get intermittently p.o. medication when she is awake enough. She is not eating. She is still agitated. CT scan returned and shows no acute findings. ASSESSMENT: 1. Unspecified psychosis. 2. History of alcohol abuse. 3. Possible history of depression. PLAN: 1. Reduce Ativan to 0.5 mg IV q.2 hours p.r.n. 2. Increase Depakene liquid formulary 125 mg p.o. three times a day. 3. Add Seroquel 25 mg p.o. at bedtime. 4. Discontinue Zyprexa p.r.n. due to poor response. 5. Add Seroquel 25 mg p.o. q.4 hours p.r.n. 6. Increase Haldol to 2 mg IM q.4 hours p.r.n. 7. Monitor for agitation and psychosis. 8. Discussed with nursing staff. Dictated by Jazmín Urrutia PA-C MD ROSI CeballosV/RANCHO /[id number]
[2019-01-22] MEDS: CEFTRIAXONE SOD 1 GM/NS 50 ML 50 ML IV SCH (13:34)
--- NOTE | 2019-01-22 15:00 | Diagnostic Imaging Report ---
Exam: KUB - 2 views Clinical History: Feeding tube placement Comparison: None Findings: The weighted tip feeding tube is in a right lower lobe bronchus. EKG leads overlie the chest. The lungs are moderately inflated. Patchy opacities at both lung bases, likely subsegmental atelectasis. Small right pleural effusion. No free air under the diaphragm. Possibility of bowel gas in the abdomen. Impression: Weighted tip feeding tube is in a right lower lobe bronchus. Feeding tube should be removed and repositioned. Critical findings were communicated to FAB Hull at 2:56PM 01/22/2019. Signed by: Marzena Guy MD on 01/22/2019 2:57 PM
--- NOTE | 2019-01-22 15:30 | NUR ---
Dubhoff tube placed under fluroscopy in Radiology, patient tolerated well
--- NOTE | 2019-01-22 16:21 | Diagnostic Imaging Report ---
PROCEDURE: Image guided nasogastric feeding tube placement Procedural Personnel Attending physician(s): Marzena Guy MD Fellow physician(s): None Resident physician(s): None Advanced practice provider(s): None Pre-procedure diagnosis: Misplaced feeding tube Post-procedure diagnosis: Same Indication: Nutritional support Additional clinical history: Prior Dobhoff tube was placed into the airway. Complications: No immediate complications. IMPRESSION: Successful image guided Dobhoff tube placement. Tip terminates in the stomach. PROCEDURE SUMMARY: - Image guided NG feeding tube placement. PROCEDURE DETAILS: Pre-procedure Consent: Informed consent for the procedure including risks, benefits and alternatives was obtained and time-out was performed prior to the procedure. Preparation: The site was prepared and draped using maximal sterile barrier technique including cutaneous antisepsis. Anesthesia/sedation Level of anesthesia/sedation: No sedation Anesthesia/sedation administered by: Independent trained observer under attending supervision with continuous monitoring of the patient?s level of consciousness and physiologic status Feeding tube placement Dobhoff tube was advanced through the nostril into the stomach under fluoroscopic guidance. Contrast Contrast agent: None Contrast volume (mL): 0 Radiation Dose Fluoroscopy time (minutes): 0.4 Reference air kerma (mGy): 0.555 Kerma area product (Gy-cm2): 0.241 Additional Details Additional description of procedure: None Equipment details: None Specimens removed: None Estimated blood loss (mL): None Attestation Signer name: Marzena Guy MD I attest that I was present for the entire procedure. I reviewed the stored images and agree with the report as written. Signed by: Marzena Guy MD on 01/22/2019 4:18 PM
[2019-01-22] MEDS: HYDROMORPHONE 1MG/1ML INJ IV PRN (16:28)
[2019-01-22] MEDS ORDERED: QUETIAPINE FUMARATE 25 MG TAB PO SCH ×2 (21:00)
[2019-01-23] VITALS (24 sets, daily range): BP systolic 123–195; BP diastolic 54–94
[2019-01-23] MEDS: D5.45%NS/KCL 20MEQ 1,000 ML IV SCH ×2 (01:05→10:30)
[2019-01-23] MEDS: DOXYCYCLINE 100MG/NS 100ML 100 ML IV SCH ×2 (01:05→13:30)
[2019-01-23] MEDS: NICARDIPINE 20MG/200ML PREMIX 200 ML IV PRN ×3 (01:22→21:30)
[2019-01-23 05:27] LABS: BASOPHILS % 0.1 % (0.0-1.0); HEMATOCRIT 29.6 % (34.2-44.1); HEMOGLOBIN 9.5 g/dL (12.0-16.0); LYMPHOCYTES # (AUTO) 0.6 (1.0-3.2); LYMPHOCYTES % 5.1 % (18.0-39.1); MEAN CORPUSCULAR HEMOGLOBIN 33.7 pg (28-32); MEAN CORPUSCULAR HGB CONC 32.1 g/dL (31-35); MONOCYTES # (AUTO) 0.4 (0.2-0.8); NEUTROPHILS # (AUTO) 10.9 (2.1-6.9); NEUTROPHILS % 90.8 % (38.7-80.0); PLATELET COUNT 101 x10e3/uL (140-360); RED BLOOD COUNT 2.82 x10e6/uL (3.6-5.1); RED CELL DISTRIBUTION WIDTH 13.8 % (11.7-14.4)
[2019-01-23 05:40] LABS: ANION GAP 14.6 mmol/L (8-16); CALCIUM 7.6 mg/dL (8.4-10.2); CREATININE, SERUM 1.25 mg/dL (0.57-1.11); POTASSIUM 3.6 mmol/L (3.5-5.1)
[2019-01-23 07:00] LABS: BAND NEUTROPHILS % (MANUAL) 15 %; LYMPHOCYTES % (MANUAL) 4 % (19-48); MONOCYTES % (MANUAL) 2 % (3.4-9.0); NEUTROPHILS % (MANUAL) 79 % (40-74)
[2019-01-23 07:10] LABS: ANISOCYTOSIS SLIGHT; PLATELET ESTIMATE MODERATELY DECREASED; PLATELET MORPHOLOGY COMMENT NORMAL; POIKILOCYTOSIS SLIGHT; RBC MORPHOLOGY COMMENT NORMAL
[2019-01-23] MEDS ORDERED: LORAZEPAM INJ 2 MG/ML VIAL IM PRN (07:15)
[2019-01-23] MEDS: FAMOTIDINE 20 MG TAB PO SCH ×2 (07:30→16:16)
[2019-01-23] MEDS: HYDRALAZINE HCL 25 MG TAB PO SCH ×3 (09:28→20:55)
[2019-01-23] MEDS: CARVEDILOL 12.5 MG TAB PO SCH ×2 (09:29→17:14)
[2019-01-23] MEDS: AMLODIPINE BESYLATE 10 MG TAB PO SCH (09:29)
[2019-01-23] MEDS: VALPROATE 250MG/5ML ORAL LIQ 5ml PO SCH ×3 (09:29→20:55)
[2019-01-23] MEDS: NICOTINE 21 MG/EA PATCH TOP SCH (09:29)
[2019-01-23] MEDS: THIAMINE HCL INJ 100 MG/ML 2ML VIAL IV SCH (09:30)
[2019-01-23] MEDS: LEVOTHYROXINE SODIUM 75 MCG TAB NG SCH (10:15)
--- NOTE | 2019-01-23 10:27 | Diagnostic Imaging Report ---
EXAMINATION: CHEST SINGLE (PORTABLE) INDICATION: Shortness of breath COMPARISON: Chest radiograph of 01/21/2019 FINDINGS: LINES/TUBES:Right IJ central venous catheter terminates in the SVC. Weighted tip feeding tube projects over the diaphragm with tip in the stomach. EKG leads overlie the chest. LUNGS:The lung volumes are low. Patchy opacities at both lung bases. PLEURA:Small right pleural effusion. No pneumothorax. MEDIASTINUM:The cardiomediastinal silhouette appears unchanged in size and shape. Atherosclerotic calcifications of the thoracic aorta. BONES/SOFT TISSUES:No acute osseous injury. Old posttraumatic/postoperative change of left distal clavicle. ABDOMEN:No free air under the diaphragm. IMPRESSION: Low lung volumes with patchy opacities at both lung bases, likely subsegmental atelectasis. Small right pleural effusion. Interval placement of weighted tip feeding tube terminating in the stomach. Signed by: Marzena Guy MD on 01/23/2019 10:23 AM
--- NOTE | 2019-01-23 10:28 | Diagnostic Imaging Report ---
PROCEDURE: Non-tunneled central venous catheter placement Procedural Personnel Attending physician(s): Marzena Guy MD Fellow physician(s): None Resident physician(s): None Advanced practice provider(s): None Pre-procedure diagnosis: Hypertension Post-procedure diagnosis: Same Indication: Need for central venous access for IV medication infusion Additional clinical history: None Complications: No immediate complications. IMPRESSION: Ultrasound guided insertion of right-sided non-tunneled triple lumen Trialysis catheter. Plan: CXR to confirm positioning. The catheter may be used immediately. PROCEDURE SUMMARY: - Venous access with ultrasound guidance - Non-tunneled central venous catheter insertion at bedside. - Additional procedure(s): None PROCEDURE DETAILS: Pre-procedure Consent: Informed consent for the procedure including risks, benefits and alternatives was obtained and time-out was performed prior to the procedure. Preparation (MIPS): The site was prepared and draped using all elements of maximal sterile barrier technique including sterile gloves, sterile gown, cap, mask, large sterile sheet, sterile ultrasound probe cover, hand hygiene and cutaneous antisepsis with 2% chlorhexidine. Medical reason for site preparation exception (MIPS): Not applicable Anesthesia/sedation Level of anesthesia/sedation: Minimal sedation (anxiolysis) Anesthesia/sedation administered by: Independent trained observer under attending supervision with continuous monitoring of the patient?s level of consciousness and physiologic status Access Local anesthesia was administered. The vessel was sonographically evaluated and determined to be patent. Real time ultrasound was used to visualize needle entry into the vessel and a permanent image was stored. Vein accessed: Internal jugular vein Access technique: Micropuncture set with 21 gauge needle Catheter placement The access site was dilated and the catheter was placed into the vein over a wire. A sterile dressing was applied. Catheter placed: Trialysis Catheter size (Hungarian): 6 Catheter length (cm): 16 Catheter flush: Saline Catheter securement technique: Non-absorbable suture Contrast Contrast agent: None Radiation Dose None Additional Details Additional description of procedure: None Equipment details: None Specimens removed: None Estimated blood loss (mL): Less than 10 Standardized report: [email or web address] Attestation Signer name: Marzena Guy MD I attest that I was present for the entire procedure. I reviewed the stored images and agree with the report as written. Signed by: Marzena Guy MD on 01/23/2019 10:25 AM
[2019-01-23] MEDS ORDERED: CEFTRIAXONE SOD 1 GM/NS 50 ML 50 ML IV SCH (13:00)
--- NOTE | 2019-01-23 14:16 | NUR ---
CM REC'D ORDERS TODAY FOR LTAC PT VERY SEDATED CALL TO PT'S MOTHER SANDEEP SAAVEDRA [phone] PERMISSION TO CONSULT [facility] OVER THE PHONE CHOICE LETTER ON CHART MOT INITIATED AND PLACED ON FRONT OF CHART BRANDO WITH [facility] NOTIFIED OF CONSULT
--- NOTE | 2019-01-23 16:10 | Consultation ---
DATE OF CONSULTATION: 01/23/2019 Pulmonary Consultation Patient of Dr. Saunders, Dr. Cipriano Dan, and Dr. Stokes. HISTORY OF PRESENT ILLNESS: Unfortunate 58-year-old woman, admitted to the hospital on 01/14, with shortness of breath, fever, and chest tightness. She apparently went into alcohol withdrawal syndrome and required sedation. She is still not responsive to commands. She is apparently unable to eat and has a feeding tube. 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 She has history of smoking. HOME MEDICATIONS: Include amlodipine, Coreg, clonidine, isosorbide, trazodone, BuSpar, Paxil, clonidine. PHYSICAL EXAMINATION: GENERAL: Slight white female, snoring which seems to be positional when her neck rests on her chest. VITAL SIGNS: Temperature 97.6, pulse 80 and regular, respirations 16, blood pressure 150/68. HEENT: Head normocephalic, atraumatic. LUNGS: Upper airways . Lungs are clear anteriorly. HEART: Regular rhythm. ABDOMEN: Nontender. EXTREMITIES: Nonedematous. IMPRESSION: 1. Right above the knee amputation. 2. Dobhoff for feeding tube. 3. There is evidence of hypothyroidism. 4. Alcohol withdrawal. PLAN: Reduce sedation, add thiamine, thyroid replacement, position neck, trial of bronchodilators she is unable to respond to questions. We will reduce sedation gradually. Cardiac catheterization revealed minimal coronary artery disease by report. Request chest x-ray. Continue supportive care. Thank you for this kind referral. Cipriano Powers MD DS/MODL /[id number]
[2019-01-23] MEDS: QUETIAPINE FUMARATE 25 MG TAB PO SCH (20:55)
[2019-01-24] VITALS (23 sets, daily range): BP systolic 88–156; BP diastolic 37–87
[2019-01-24] MEDS: D5.45%NS/KCL 20MEQ 1,000 ML IV SCH ×2 (01:19→07:14)
[2019-01-24] MEDS: DOXYCYCLINE 100MG/NS 100ML 100 ML IV SCH (01:20)
[2019-01-24] MEDS: NICARDIPINE 20MG/200ML PREMIX 200 ML IV PRN ×3 (01:20→17:37)
[2019-01-24 05:08] LABS: BASOPHILS # (AUTO) 0.1 (0.0-0.1); BASOPHILS % 0.2 % (0.0-1.0); EOSINOPHILS # (AUTO) 0.1 (0.0-0.4); EOSINOPHILS % 0.3 % (0.0-6.0); HEMATOCRIT 32.7 % (34.2-44.1); HEMOGLOBIN 10.6 g/dL (12.0-16.0); LYMPHOCYTES # (AUTO) 0.8 (1.0-3.2); LYMPHOCYTES % 2.4 % (18.0-39.1); MEAN CORPUSCULAR HEMOGLOBIN 33.9 pg (28-32); MEAN CORPUSCULAR HGB CONC 32.4 g/dL (31-35); MEAN CORPUSCULAR VOLUME 104.5 fL (81-99); MONOCYTES # (AUTO) 1.3 (0.2-0.8); MONOCYTES % 3.8 % (4.4-11.3); NEUTROPHILS # (AUTO) 31.7 (2.1-6.9); NEUTROPHILS % 92.3 % (38.7-80.0); PLATELET COUNT 103 x10e3/uL (140-360); RED BLOOD COUNT 3.13 x10e6/uL (3.6-5.1); RED CELL DISTRIBUTION WIDTH 13.7 % (11.7-14.4)
[2019-01-24 05:38] LABS: CALCIUM 7.7 mg/dL (8.4-10.2); CREATININE, SERUM 1.18 mg/dL (0.57-1.11)
[2019-01-24 06:25] LABS: ABG HCO3 13 mmol/L (23-28); ABG PCO2 33 mmHg (41-51); ABG PH 7.22 (7.31-7.41); ABG PO2 60 mmHg (80-105)
--- NOTE | 2019-01-24 07:06 | Diagnostic Imaging Report ---
Examination: Single AP view of the chest. COMPARISON: 01/23/2019 INDICATION: Congestion DISCUSSION: Right internal jugular central venous catheter and enteric tube are stable in position. Interval development of patchy consolidations in the upper lung zones bilaterally. Small right pleural effusion persists. Stable cardiomediastinal contour with atherosclerotic calcification of the thoracic aorta. Postsurgical or posttraumatic deformity of the distal left clavicle with osteolysis unchanged. IMPRESSION: Stable position of support lines and tubes. New patchy bilateral upper lung zone consolidations. Considerations include multifocal pneumonia, aspiration pneumonitis if patient is primarily in the recumbent position, or less likely pulmonary edema. Signed by: Dr. Cipriano Elias M.D. on 01/24/2019 7:03 AM
[2019-01-24] MEDS: LEVOTHYROXINE SODIUM 75 MCG TAB NG SCH (07:14)
[2019-01-24 07:15] LABS: LYMPHOCYTES % (MANUAL) 7 % (19-48); MONOCYTES % (MANUAL) 1 % (3.4-9.0); NEUTROPHILS % (MANUAL) 92 % (40-74); NUCLEATED RED BLOOD CELLS 1
[2019-01-24 07:16] LABS: ANISOCYTOSIS SLIGHT; PLATELET MORPHOLOGY COMMENT NORMAL; RBC MORPHOLOGY COMMENT ABNORMAL; TOXIC GRANULATION SLIGHT
[2019-01-24 07:17] LABS: PLATELET ESTIMATE SLIGHTLY DECREASED
[2019-01-24] MEDS: FAMOTIDINE 20 MG TAB PO SCH ×2 (07:30→17:11)
--- NOTE | 2019-01-24 08:38 | NUR ---
pt in resp distress w/agonal breaths. Dr. Powers and RT at bedside, rapid called for intubation assist from ER Dr. Hui. Dr. Powers ordered versed 2mg IVP for sedation. medication administered as ordered. ER MD arrived 0840, pt rec'd Etomidate 25mg IVP and Succinylcholine 200mg per VOR[facility] Dr. Hui for sedation. pt intubated at 0845. propofol gtt started for continuous sedation. Attempted to notify pt mother x 3 w/o answer. will continue to monitor
[2019-01-24] MEDS ORDERED: CEFEPIME HCL 1 GM VIAL IV SCH (08:45)
[2019-01-24] MEDS: CARVEDILOL 12.5 MG TAB PO SCH ×2 (09:00→17:18)
[2019-01-24] MEDS ORDERED: METHYLPREDNISOLONE SOD SUCC 40 MG/ML VIAL 1ML IV SCH (09:00)
[2019-01-24] MEDS: AMLODIPINE BESYLATE 10 MG TAB PO SCH (09:00)
[2019-01-24] MEDS: HYDRALAZINE HCL 25 MG TAB PO SCH ×3 (09:00→21:41)
[2019-01-24] MEDS: PROPOFOL IV EMULSION 10MG/ML 100 ML IV SCH ×2 (09:54→12:35)
[2019-01-24] MEDS: CEFEPIME 1GM/NS 0.9% 50 ML 50 ML IV SCH ×2 (09:55→21:41)
--- NOTE | 2019-01-24 10:05 | Diagnostic Imaging Report ---
EXAMINATION: CHEST SINGLE (PORTABLE) INDICATION: Endotracheal tube placement COMPARISON: Multiple prior radiographs most recently of earlier the same day FINDINGS: LINES/TUBES:Interval intubation eared endotracheal tube terminates proximal to 0.5 cm above the angela. Right IJ central venous catheter terminates in the IVC. Weighted tip feeding tube checks below the diaphragm and terminates in the stomach. EKG leads overlie the chest. LUNGS:The lungs are moderately inflated. Continued interval worsening of bilateral upper lobe predominant airspace opacities slightly worse on the right than left. PLEURA:Small right pleural effusion. No pneumothorax. MEDIASTINUM:The cardiomediastinal silhouette appears unchanged in size and shape. BONES/SOFT TISSUES:No acute osseous injury. ABDOMEN:No free air under the diaphragm. IMPRESSION: Endotracheal tube terminates 2.5 cm above the angela. Continued interval worsening of bilateral upper lobe predominant airspace opacities concerning for multifocal aspiration or pneumonia. Signed by: Marzena Guy MD on 01/24/2019 10:02 AM
--- NOTE | 2019-01-24 10:07 | Diagnostic Imaging Report ---
Exam: KUB - 2 views Clinical History: NG tube placed Comparison: Chest radiograph of the same day. Findings: NG tube projects below the diaphragm with tip in the stomach. There is a possibility of bowel gas in abdomen. Degenerative changes of the visualized spine. No free air. Impression: NG tube terminates in the stomach. Signed by: Marzena Guy MD on 01/24/2019 10:03 AM
[2019-01-24] MEDS: THIAMINE HCL INJ 100 MG/ML 2ML VIAL IV SCH (11:03)
[2019-01-24] MEDS: CITRIC ACID/SODIUM CITRATE 30 ML UDC PO SCH ×2 (11:03→17:11)
[2019-01-24] MEDS: VALPROATE 250MG/5ML ORAL LIQ 5ml PO SCH ×3 (11:04→21:41)
[2019-01-24] MEDS: HEPARIN SOD (PORCINE) 5,000 UNIT/ML VIAL SC SCH ×2 (11:08→21:45)
[2019-01-24] MEDS: NICOTINE 21 MG/EA PATCH TOP SCH (11:11)
[2019-01-24] MEDS ORDERED: MIDAZOLAM HCL 2 MG/2 ML VIAL ONE (14:22)
[2019-01-24] MEDS ORDERED: ETOMIDATE 2 MG/ML 10 ML INJ IV ONE (14:22)
[2019-01-24] MEDS ORDERED: SUCCINYLCHOLINE CHLORIDE 20 MG/ML 10ML VIAL ONE (14:22)
[2019-01-24 14:55] LABS: ABG HCO3 13 mmol/L (23-28); ABG PCO2 24 mmHg (41-51); ABG PH 7.35 (7.31-7.41); ABG PO2 71 mmHg (80-105)
[2019-01-24] MEDS: CLINDAMYCIN PHOS 900MG/ 50ML 50 ML IV SCH ×2 (15:01→21:44)
--- NOTE | 2019-01-24 15:03 | NUR ---
Nutrition Follow-up Note RD Recommendation(s) for Physician: -When medically feasible, rec to initiate continuous TF with Glucerna 1.2 @10mL/hr, advance as tolerated, to goal rate of 40mL/hr (1152kcal, 58g protein, 773mL water) -Rec 50mL q 4hr; additional per MD discretion -Check labs, gastric residual, and weight change Pt meets criteria for mild protein calorie malnutrition. Plan of Care: RD following, monitoring for tolerance and adequacy, TF rec Nutrition reason for involvement: Follow up RD Assessment 01/24: Pt was discussed during AM rounds. Currently intubated and ventilated. Propofol was running at 4.3mL/hr (103kcal/day). TF was stopped after intubation. RN will restart TF and monitor for gastric tolerance. 01/20: 58 YOF admitted for chest pain, HTN, and COPD exacerbation. Pt seen today for LOS. Pt sleeping at time of visit, no family present at bedside. Per chart pt very combative since admit when awake and per RN has been spitting out meds. Per chart pt not eating, would only take a few bites of pudding yesterday. Pt discussed during am rounds. Will monitor and continue to follow. Principal Problems/Diagnoses: Chest pain, HTN, COPD exacerbation PMH: R AKA, ETOH abuse, cholecystectomy, COPD, HTN, PVD GI: Abdomen soft, non-tender, round, flatus present Skin: intact Labs: 01/24: BUN 48 H, Creatinine 1.18 H, Glucose 197 H, Ca 7.7 L 01/20: Na 142, K 2.9, BUN 27, Cr 1.18, Gluc 130- on steriods Meds: heparin, thiamine, cefepime, propofol, synthroid Ht: 61 in Wt:105.38 lb; 92.31lb BMI:19.9 AIBW: 96.6 lb (43.9 kg) Malnutrition Evaluation (01/20) The patient meets criteria for MILD protein-calorie malnutrition. Energy intake: <50% of estimated energy requirements for >5 days Weight loss: UTD Fat loss: Mild Muscle loss: Mild Supporting Evidence: Fluid accumulation: none Functional Status: unable to evaluate Nutrition Prescription (Diet Order): Glucerna 1.2 Estimated Nutritional Needs: 878 - 1098 calories/day (20-25 kcal/kg AIBW) 57 88 g protein/day (1.3-2 g pro/kg AIBW) Diet Adequacy: Not meeting calorie needs, Not meeting protein needs Diet Education Needs Assessment: Diet education indicated, but patient not appropriate for education at this time. Nutrition Care Level: Mod Nutrition Diagnosis: Inadequate energy and protein intake related to current medical status (intubated/ ventilated) as evidenced by pt requiring EN as main source of nutrition. Goal: Patient will meet 75-100% of estimated needs by follow up Progress: N/A Interventions: Composition, Rate, Route, IVF Monitoring/Evaluation: Total energy intake, Total protein intake, Formula/Solution, Prescription medication, Weight change Signed: Carol Wright MS, RD, LD
[2019-01-24] MEDS ORDERED: SODIUM CHLORIDE 0.9% 250ML 250 ML ONE (15:04)
--- NOTE | 2019-01-24 16:05 | Consultation ---
DATE OF CONSULTATION: 01/24/2019 REASON FOR CONSULTATION: [place] metabolic acidosis and CKD stage 3. HISTORY OF PRESENT ILLNESS: The patient is currently intubated, so history is referring to the doctor's notes and talking to Dr. Saunders and Dr. Powers. The patient is a 58-year-old female with past medical history of hypertension, peripheral vascular disease status post right above-knee amputation, was admitted with chest pain and shortness of breath. The patient was seen by Cardiology, had a left heart cath done and found out to have minimal coronary artery disease and no intervention was done. During the hospitalization, the patient was confused and needed to be on sedation. She was also evaluated by Psychiatry and medications were adjusted. She was started on IV fluids and has not been eating, drinking. Eventually, the patient had a Dobbhoff tube placed by Interventional Radiology on 01/22 and was started on tube feeding. Early this morning, the patient was very somnolent and an ABG was done, and found to be hypoxic and to protect the airway, the patient got intubated this morning. Chest x-ray showed bilateral upper lobe infiltrates. The patient was started on cefepime and Clindamycin. ABG showed pH of 7.2 with pCO2 of 33, pO2 of 60, and bicarb of 13. The patient's anion gap is 14. Creatinine is at 1.18 with GFR of 47. PAST MEDICAL HISTORY: As above. PAST SURGICAL HISTORY: Right AKA. SOCIAL HISTORY: Positive for smoking in the past. Positive for alcohol abuse. FAMILY HISTORY: Positive for diabetes and hypertension. ALLERGIES: NO KNOWN DRUG ALLERGIES. MEDICATIONS: Currently, the patient is on 1. D5 half NS with 20 of KCl IV continuous fluid. 2. Levothyroxine. 3. Carvedilol. 4. Thiamine. 5. Nicotine. 6. Amlodipine. 7. Quetiapine. 8. Hydralazine. 9. Clonidine patch. 10. Clindamycin. 11. Cefepime. 12. Bicitra REVIEW OF SYSTEMS: Unable to obtain secondary to the patient is currently intubated. PHYSICAL EXAMINATION: VITAL SIGNS: Blood pressure 142/62, pulse of 61, respirations are 18, 100% on vent. GENERAL: Intubated and sedated. HEENT: Extraocular movements were intact. PERRLA. NECK: No JVD. No mass. HEART: S1, S2. Regular rate and rhythm. LUNGS: Coarse breath sounds bilaterally. No rhonchi or wheezing. ABDOMEN: Soft, nontender, and nondistended. Bowel sounds are positive. EXTREMITIES: Positive upper extremity edema. NEUROLOGIC: Currently sedated. SKIN: She has multiple bruises all over the body. LABORATORY DATA: Sodium 140, potassium 4, chloride 116, CO2 14, BUN 48, creatinine 1.18, glucose 197, calcium 7.7. Lactic acid level is pending. Ammonia level is 45. White count 34.3, hemoglobin 10.6, platelet count is 103. ABG as per HPI. Chest x-ray as per HPI. The patient had a CT abdomen and pelvis done on 01/14 that did not show any hydronephrosis or stone. ASSESSMENT AND PLAN: 1. [place] hyperchloremic metabolic acidosis, likely secondary to IV fluid with chloride. We will discontinue that as the patient has evidence of volume overload too. Followup on the lactic acid level. Repeat the labs in the morning with ABG. 2. Chronic kidney disease, stage 3, stable. Continue to monitor. Avoid all nephrotoxic medications. 3. Acute respiratory failure with history of chronic obstructive pulmonary disease and possible aspiration pneumonia. Continue with antibiotics, Pulmonary and Critical Care following. Currently on vent management per them. 4. Hypertension. Currently controlled. Adjust medicine as needed. Discontinue IV fluids. 5. History of alcohol abuse. Currently sedated. Psychiatry is following. I discussed with Dr. Powers and Dr. Saunders. I want to thank, Dr. Saunders, for the consult. We will follow the patient with you. Chandni Rosenberg MD AFDaiana/MODL /[id number]
[2019-01-24] MEDS: QUETIAPINE FUMARATE 25 MG TAB PO SCH (21:44)
[2019-01-25] VITALS (18 sets, daily range): BP systolic 106–141; BP diastolic 46–59
[2019-01-25] MEDS: NICARDIPINE 20MG/200ML PREMIX 200 ML IV PRN (02:00)
[2019-01-25] MEDS ORDERED: PROPOFOL IV EMULSION 10MG/ML 100 ML ONE (04:17)
[2019-01-25] MEDS: PROPOFOL IV EMULSION 10MG/ML 100 ML IV SCH ×2 (04:42→12:35)
[2019-01-25 05:49] LABS: BASOPHILS % 0.1 % (0.0-1.0); HEMATOCRIT 29.1 % (34.2-44.1); HEMOGLOBIN 9.7 g/dL (12.0-16.0); LYMPHOCYTES # (AUTO) 0.7 (1.0-3.2); LYMPHOCYTES % 3.9 % (18.0-39.1); MEAN CORPUSCULAR HEMOGLOBIN 33.4 pg (28-32); MEAN CORPUSCULAR HGB CONC 33.3 g/dL (31-35); MEAN CORPUSCULAR VOLUME 100.3 fL (81-99); MONOCYTES # (AUTO) 0.6 (0.2-0.8); MONOCYTES % 3.7 % (4.4-11.3); NEUTROPHILS # (AUTO) 15.6 (2.1-6.9); NEUTROPHILS % 91.2 % (38.7-80.0); PLATELET COUNT 70 x10e3/uL (140-360); RED CELL DISTRIBUTION WIDTH 13.6 % (11.7-14.4)
--- NOTE | 2019-01-25 06:16 | Diagnostic Imaging Report ---
EXAMINATION: CHEST SINGLE (PORTABLE) INDICATION: Intubated COMPARISON: Chest radiograph 01/24/2019 FINDINGS: AP view TUBES and LINES: Right IJ central venous catheter, tip in the cavoatrial junction. ET tube tip terminates in the mid intrathoracic trachea. Enteric tube courses into abdomen with tip at a field of view. LUNGS: Persistent multifocal bilateral patchy hazy opacities. PLEURA: No pleural effusion or pneumothorax. HEART AND MEDIASTINUM: The cardiomediastinal silhouette is unremarkable. BONES AND SOFT TISSUES: No acute osseous lesion. Soft tissues are unremarkable. UPPER ABDOMEN: No free air under the diaphragm. IMPRESSION: Support apparatus unchanged as described above. Persistent bilateral patchy hazy opacities concerning for pneumonia or edema. Signed by: Washington Craig DO on 01/25/2019 6:13 AM
[2019-01-25 06:20] LABS: ANION GAP 14.7 mmol/L (8-16); CALCIUM 7.9 mg/dL (8.4-10.2); CREATININE, SERUM 1.32 mg/dL (0.57-1.11); POTASSIUM 3.7 mmol/L (3.5-5.1)
[2019-01-25] MEDS: CLINDAMYCIN PHOS 900MG/ 50ML 50 ML IV SCH ×3 (06:33→21:14)
[2019-01-25] MEDS: LEVOTHYROXINE SODIUM 75 MCG TAB NG SCH (06:33)
[2019-01-25] MEDS ORDERED: CEFTRIAXONE SOD 1 GM/NS 50 ML 50 ML IV SCH (08:30)
[2019-01-25] MEDS ORDERED: DOXYCYCLINE 100MG/NS 100ML 100 ML IV SCH (09:00)
[2019-01-25] MEDS ORDERED: FUROSEMIDE INJ 10 MG/ML 2 ML VIAL IV ONE (09:30)
[2019-01-25] MEDS: CITRIC ACID/SODIUM CITRATE 30 ML UDC PO SCH (10:48)
[2019-01-25] MEDS: CEFEPIME 1GM/NS 0.9% 50 ML 50 ML IV SCH ×2 (10:49→20:59)
[2019-01-25] MEDS: CARVEDILOL 12.5 MG TAB PO SCH ×2 (10:49→16:28)
[2019-01-25] MEDS: VALPROATE 250MG/5ML ORAL LIQ 5ml PO SCH ×3 (10:49→21:00)
[2019-01-25] MEDS: HYDRALAZINE HCL 25 MG TAB PO SCH ×3 (10:49→20:59)
[2019-01-25] MEDS: THIAMINE HCL INJ 100 MG/ML 2ML VIAL IV SCH (10:49)
[2019-01-25] MEDS: AMLODIPINE BESYLATE 10 MG TAB PO SCH (10:49)
[2019-01-25] MEDS: HEPARIN SOD (PORCINE) 5,000 UNIT/ML VIAL SC SCH ×2 (10:50→20:18)
[2019-01-25] MEDS: NICOTINE 21 MG/EA PATCH TOP SCH (10:50)
[2019-01-25] MEDS ORDERED: CITRIC ACID/SODIUM CITRATE 30 ML UDC ONE (10:52)
--- NOTE | 2019-01-25 12:19 | NUR ---
INFORMED SRAVAN WITH JAH THAT PT IS INTUBATED AND WILL MOST LIKELY BE EXTUBATED TOMORROW AND HAS BEEN PUT ON A MEDICAL HOLD UNTIL SUNDAY. SHE STATES TO JUST UPDATE THE TEAM ON SUNDAY.
--- NOTE | 2019-01-25 13:00 | NUR ---
eilna called and stated patient has been accepted to [facility]. notified dr banda, he states possibly sunday what with her change in status since the eval.
[2019-01-25] MEDS: FAMOTIDINE 20 MG/2 ML VIAL IV SCH (16:14)
[2019-01-25] MEDS: QUETIAPINE FUMARATE 25 MG TAB PO SCH (21:00)
[2019-01-26] VITALS (24 sets, daily range): BP systolic 120–164; BP diastolic 49–64
[2019-01-26] MEDS: CLINDAMYCIN PHOS 900MG/ 50ML 50 ML IV SCH ×3 (05:27→22:03)
[2019-01-26] MEDS: LEVOTHYROXINE SODIUM 75 MCG TAB NG SCH (05:27)
[2019-01-26 05:42] LABS: BASOPHILS % 0.2 % (0.0-1.0); EOSINOPHILS # (AUTO) 0.1 (0.0-0.4); EOSINOPHILS % 0.6 % (0.0-6.0); HEMATOCRIT 28.9 % (34.2-44.1); HEMOGLOBIN 9.7 g/dL (12.0-16.0); LYMPHOCYTES # (AUTO) 1.5 (1.0-3.2); LYMPHOCYTES % 11.7 % (18.0-39.1); MEAN CORPUSCULAR HEMOGLOBIN 33.4 pg (28-32); MEAN CORPUSCULAR HGB CONC 33.6 g/dL (31-35); MEAN CORPUSCULAR VOLUME 99.7 fL (81-99); MONOCYTES # (AUTO) 0.7 (0.2-0.8); MONOCYTES % 5.5 % (4.4-11.3); NEUTROPHILS # (AUTO) 10.2 (2.1-6.9); NEUTROPHILS % 79.4 % (38.7-80.0); PLATELET COUNT 63 x10e3/uL (140-360); RED CELL DISTRIBUTION WIDTH 13.7 % (11.7-14.4)
[2019-01-26 06:27] LABS: CALCIUM 7.8 mg/dL (8.4-10.2); CREATININE, SERUM 1.55 mg/dL (0.57-1.11)
--- NOTE | 2019-01-26 06:51 | Diagnostic Imaging Report ---
EXAMINATION: CHEST SINGLE (PORTABLE) INDICATION: Short of breath COMPARISON: Chest radiograph 01/25/2019 FINDINGS: AP view TUBES and LINES: ET tube tip terminates in the mid intrathoracic trachea. Right IJ central venous catheter tip in the low SVC. Enteric tube courses into abdomen with tip out of field of view.. LUNGS: Hazy opacification of the right lung, and to a lesser degree of the left lung with a denser hazy opacity in the left upper lobe.. here is no evidence of pneumonia or pulmonary edema. PLEURA: No pleural effusion or pneumothorax. HEART AND MEDIASTINUM: The cardiomediastinal silhouette is unremarkable. BONES AND SOFT TISSUES: No acute osseous lesion. Soft tissues are unremarkable. UPPER ABDOMEN: No free air under the diaphragm. IMPRESSION: ET tube tip terminates in the mid intrathoracic trachea. Right IJ central venous catheter tip in the low SVC. Enteric tube courses into abdomen with tip out of field of view.. Hazy opacification of the right lung could be due to layering pleural effusion or airspace disease such as pneumonia or edema. A hazy opacity in the left upper lobe may be due to pneumonia, or atelectasis. Signed by: Washington Craig DO on 01/26/2019 6:48 AM
[2019-01-26 07:57] LABS: BAND NEUTROPHILS % (MANUAL) 5 %; LYMPHOCYTES % (MANUAL) 13 % (19-48); MONOCYTES % (MANUAL) 2 % (3.4-9.0); NEUTROPHILS % (MANUAL) 80 % (40-74); PLATELET ESTIMATE ADEQUATE; PLATELET MORPHOLOGY COMMENT NORMAL; RBC MORPHOLOGY COMMENT NORMAL
[2019-01-26] MEDS: FAMOTIDINE 20 MG/2 ML VIAL IV SCH ×2 (08:41→18:23)
[2019-01-26] MEDS: THIAMINE HCL INJ 100 MG/ML 2ML VIAL IV SCH (08:41)
[2019-01-26] MEDS: CARVEDILOL 12.5 MG TAB PO SCH ×2 (08:41→18:24)
[2019-01-26] MEDS: CEFEPIME 1GM/NS 0.9% 50 ML 50 ML IV SCH ×2 (08:41→20:34)
[2019-01-26] MEDS: HYDRALAZINE HCL 25 MG TAB PO SCH ×3 (08:41→20:34)
[2019-01-26] MEDS: HEPARIN SOD (PORCINE) 5,000 UNIT/ML VIAL SC SCH (08:42)
[2019-01-26] MEDS: VALPROATE 250MG/5ML ORAL LIQ 5ml PO SCH ×3 (08:42→20:33)
[2019-01-26] MEDS: AMLODIPINE BESYLATE 10 MG TAB PO SCH (08:42)
[2019-01-26] MEDS: NICOTINE 21 MG/EA PATCH TOP SCH (08:43)
[2019-01-26] MEDS ORDERED: CHOLESTYRAMINE 4 GM PACKET PO PRN (09:00)
[2019-01-26] MEDS ORDERED: POTASSIUM CHLORIDE 20MEQ/100ML 200 ML IV ONE (09:30)
[2019-01-26 09:39] LABS: ABG HCO3 17 mmol/L (23-28); ABG PCO2 25 mmHg (41-51); ABG PH 7.44 (7.31-7.41); ABG PO2 77 mmHg (80-105)
[2019-01-26] MEDS: PROPOFOL IV EMULSION 10MG/ML 100 ML IV SCH (12:24)
[2019-01-26] MEDS: CLONIDINE HCL 0.2 MG/24 HR 1 EA PATCH TOP SCH (18:23)
[2019-01-26] MEDS: QUETIAPINE FUMARATE 25 MG TAB PO SCH (20:33)
[2019-01-27] VITALS (25 sets, daily range): BP systolic 111–196; BP diastolic 43–67
--- NOTE | 2019-01-27 00:54 | Diagnostic Imaging Report ---
EXAM: US CHEST (INCL MEDIASTINUM) INDICATION: Pleural effusion COMPARISON: Chest radiograph 01/26/2019, Chest CT 01/14/2019 TECHNIQUE: Transverse and sagittal images were performed of the bilateral pleural spaces. FINDINGS: Large bilateral simple-appearing pleural effusions. Nodular liver contour consistent with cirrhosis. IMPRESSION: Large bilateral simple-appearing pleural effusions. Nodular liver contour consistent with cirrhosis. Signed by: Washington Craig DO on 01/27/2019 12:51 AM
[2019-01-27 05:24] LABS: BASOPHILS % 0.4 % (0.0-1.0); EOSINOPHILS % 0.3 % (0.0-6.0); HEMATOCRIT 27.4 % (34.2-44.1); HEMOGLOBIN 9.3 g/dL (12.0-16.0); LYMPHOCYTES # (AUTO) 1.2 (1.0-3.2); LYMPHOCYTES % 11.2 % (18.0-39.1); MEAN CORPUSCULAR HEMOGLOBIN 33.8 pg (28-32); MEAN CORPUSCULAR HGB CONC 33.9 g/dL (31-35); MEAN CORPUSCULAR VOLUME 99.6 fL (81-99); MONOCYTES # (AUTO) 0.7 (0.2-0.8); MONOCYTES % 6.1 % (4.4-11.3); NEUTROPHILS # (AUTO) 8.3 (2.1-6.9); NEUTROPHILS % 77.3 % (38.7-80.0); PLATELET COUNT 50 x10e3/uL (140-360); RED BLOOD COUNT 2.75 x10e6/uL (3.6-5.1)
[2019-01-27 05:39] LABS: PARTIAL THROMBOPLASTIN TIME 38.1 seconds (23.8-35.5); PROTHROMBIN TIME 13.7 seconds (11.9-14.5)
[2019-01-27 05:43] LABS: ANION GAP 16.1 mmol/L (8-16); CALCIUM 7.9 mg/dL (8.4-10.2); CREATININE, SERUM 1.52 mg/dL (0.57-1.11); POTASSIUM 3.1 mmol/L (3.5-5.1)
[2019-01-27 05:45] LABS: MAGNESIUM 1.1 MG/DL (1.3-2.1)
--- NOTE | 2019-01-27 05:52 | NUR ---
Page out to Dr. Wilcox regarding critical lab values.
[2019-01-27] MEDS ORDERED: POTASSIUM CHLORIDE 20 MEQ TAB CR PO STA (05:57)
--- NOTE | 2019-01-27 05:59 | NUR ---
returned page, new orders noted. See eMAR
[2019-01-27] MEDS ORDERED: MAGNESIUM SULFATE 2GM/50ML 50 ML IV ONE ×2 (06:00→06:06)
[2019-01-27] MEDS ORDERED: POTASSIUM CHLORIDE 20 MEQ TAB CR PO ONE (06:08)
[2019-01-27] MEDS: CLINDAMYCIN PHOS 900MG/ 50ML 50 ML IV SCH ×3 (06:13→21:21)
[2019-01-27] MEDS: LEVOTHYROXINE SODIUM 75 MCG TAB NG SCH (06:13)
[2019-01-27 06:37] LABS: EOSINOPHILS % (MANUAL) 2 % (0-7); LYMPHOCYTES % (MANUAL) 10 % (19-48); MONOCYTES % (MANUAL) 4 % (3.4-9.0); NEUTROPHILS % (MANUAL) 84 % (40-74)
[2019-01-27 06:38] LABS: ANISOCYTOSIS F; RBC MORPHOLOGY COMMENT ABNORMAL
[2019-01-27 06:39] LABS: PLATELET ESTIMATE MODERATELY DECREASED; PLATELET MORPHOLOGY COMMENT NORMAL; POIKILOCYTOSIS S
--- NOTE | 2019-01-27 07:37 | Diagnostic Imaging Report ---
EXAM: CHEST SINGLE (PORTABLE), AP Portable DATE: 01/27/2019 Time stamp on exam: 5:45 AM INDICATION: Chest pain COMPARISON: 01/26/2019 FINDINGS: LINES/TUBES: Right IJ central line unchanged position. Endotracheal tube and Dobbhoff feeding tube also present in appropriate locations. LUNGS: Slight improvement in the right hazy lung opacification. Improvement in the left upper lobe opacity. PLEURA: No effusions or pneumothorax. HEART AND MEDIASTINUM: Normal size and contour. BONES AND SOFT TISSUES: No acute findings. IMPRESSION: Slight improvement in the pulmonary opacities. Signed by: Dr. Arvind Barbosa DO on 01/27/2019 7:34 AM
[2019-01-27] MEDS ORDERED: MAGNESIUM SULFATE 2GM/50ML IV ONE (08:15)
[2019-01-27] MEDS: CEFEPIME 1GM/NS 0.9% 50 ML 50 ML IV SCH ×2 (08:16→20:42)
[2019-01-27] MEDS: THIAMINE HCL INJ 100 MG/ML 2ML VIAL IV SCH (08:16)
[2019-01-27] MEDS: FAMOTIDINE 20 MG/2 ML VIAL IV SCH ×2 (08:16→15:47)
[2019-01-27] MEDS: CARVEDILOL 12.5 MG TAB PO SCH ×2 (08:17→16:13)
[2019-01-27] MEDS: HYDRALAZINE HCL 25 MG TAB PO SCH ×3 (08:17→20:42)
[2019-01-27] MEDS: VALPROATE 250MG/5ML ORAL LIQ 5ml PO SCH ×3 (08:18→20:42)
[2019-01-27] MEDS: AMLODIPINE BESYLATE 10 MG TAB PO SCH (08:19)
[2019-01-27] MEDS: NICOTINE 21 MG/EA PATCH TOP SCH (08:19)
[2019-01-27] MEDS: PROPOFOL IV EMULSION 10MG/ML 100 ML IV SCH ×3 (09:00→22:39)
[2019-01-27] MEDS ORDERED: MIDAZOLAM HCL 2 MG/2 ML VIAL IV PRN (09:15)
[2019-01-27 09:49] LABS: ABG HCO3 18 mmol/L (23-28); ABG PCO2 22 mmHg (41-51); ABG PH 7.53 (7.31-7.41); ABG PO2 178 mmHg (80-105)
--- NOTE | 2019-01-27 17:09 | Progress Note ---
DATE: 01/27/2019 Psychiatric Progress Note SUBJECTIVE: The patient was evaluated and events noted. The patient is in the ICU. She has been intubated. According to her nurse, the patient was intubated end of last week. She apparently on morning of January 24, she was found to be somnolent. ABG was done. The patient was found to be hypoxic and she was intubated that morning. Chest x-ray also showed to have infiltrate. She is being followed by poultry vaccinator as well as other consultants. At this time, the patient is intubated. She is not combative. However, nursing staff reports that treatment team attempted to extubate her, but she was agitated and restless. P.r.n. Psych medications have been discontinued. ASSESSMENT: 1. Unspecified psychosis/delirium. 2. History of alcohol abuse. 3. Possible history of depression. PLAN: 1. Continue with Depakene 125 mg three times a day. 2. Discontinue Seroquel at bedtime. Dictated by Jazmín Urrutia PA-C Mer Kirkland MD QTV/MODL /[id number]
--- NOTE | 2019-01-27 17:15 | Progress Note ---
DATE: 01/23/2019 Psychiatric Progress Note SUBJECTIVE: The patient was evaluated and events noted. The patient is in the ICU. The patient has an NG tube. She is sleeping. The patient received only scheduled Seroquel last night. No p.r.n. medication. This morning, she was drowsy. Discussed with nursing staff. She has been calm and has not been agitated. ASSESSMENT: 1. Unspecified psychosis/delirium. 2. History of alcohol abuse. 3. History of depression. PLAN: 1. Reduce Seroquel p.r.n. 2. Continue with Depakene. 3. Reduce Haldol p.r.n. 4. Reduce Seroquel to 25 mg p.o. at bedtime. 5. Change Ativan p.r.n. IV to IM. 6. Monitor for agitation. Dictated by Jazmín Urrutia PA-C Mer Kirkland MD QTV/MODL /[id number]
[2019-01-28] VITALS (25 sets, daily range): BP systolic 136–189; BP diastolic 47–95
[2019-01-28 05:08] LABS: BASOPHILS # (AUTO) 0.1 (0.0-0.1); BASOPHILS % 0.6 % (0.0-1.0); EOSINOPHILS # (AUTO) 0.1 (0.0-0.4); EOSINOPHILS % 0.8 % (0.0-6.0); HEMATOCRIT 27.3 % (34.2-44.1); HEMOGLOBIN 9.2 g/dL (12.0-16.0); LYMPHOCYTES # (AUTO) 1.3 (1.0-3.2); LYMPHOCYTES % 12.1 % (18.0-39.1); MEAN CORPUSCULAR HEMOGLOBIN 33.7 pg (28-32); MEAN CORPUSCULAR HGB CONC 33.7 g/dL (31-35); MONOCYTES # (AUTO) 0.9 (0.2-0.8); MONOCYTES % 8.4 % (4.4-11.3); NEUTROPHILS # (AUTO) 7.7 (2.1-6.9); NEUTROPHILS % 70.1 % (38.7-80.0); RED BLOOD COUNT 2.73 x10e6/uL (3.6-5.1)
[2019-01-28 05:22] LABS: PLATELET COUNT 46 x10e3/uL (140-360)
--- NOTE | 2019-01-28 05:23 | Diagnostic Imaging Report ---
EXAM: CHEST SINGLE (PORTABLE), AP Portable DATE: 01/28/2019 7:00 AM Time stamp on exam: 5:45 AM INDICATION: Chest pain. Hypertension. Committee acquired pneumonia. COMPARISON: 01/26/2019 FINDINGS: LINES/TUBES: Right IJ central line is unchanged position. Endotracheal tube and Dobbhoff feeding tube are unchanged. LUNGS: Bibasilar subsegmental atelectasis. Mild residual pulmonary edema, unchanged. PLEURA: No effusions or pneumothorax. HEART AND MEDIASTINUM: Normal size and contour. BONES AND SOFT TISSUES: No acute findings. IMPRESSION: Stable examination. Mild residual bilateral pulmonary edema. Stable tubes and right IJ central venous catheter. Signed by: Dr. Isabel Krause M.D. on 01/28/2019 5:20 AM
[2019-01-28 05:27] LABS: ANION GAP 13.6 mmol/L (8-16); CALCIUM 8.4 mg/dL (8.4-10.2); CREATININE, SERUM 1.56 mg/dL (0.57-1.11); POTASSIUM 3.6 mmol/L (3.5-5.1)
[2019-01-28] MEDS: CLINDAMYCIN PHOS 900MG/ 50ML 50 ML IV SCH ×3 (06:30→21:03)
[2019-01-28] MEDS: LEVOTHYROXINE SODIUM 75 MCG TAB NG SCH (06:30)
[2019-01-28] MEDS: HYDRALAZINE HCL 20 MG/ML VIAL IV PRN ×2 (06:35→12:23)
[2019-01-28 07:18] LABS: MAGNESIUM 2.3 MG/DL (1.3-2.1); PHOSPHORUS 3.4 MG/DL (2.3-4.7)
[2019-01-28 08:39] LABS: BAND NEUTROPHILS % (MANUAL) 10 %; LYMPHOCYTES % (MANUAL) 14 % (19-48); METAMYELOCYTES % (MANUAL) 2 % (0-0); MONOCYTES % (MANUAL) 12 % (3.4-9.0); NEUTROPHILS % (MANUAL) 58 % (40-74)
[2019-01-28 08:45] LABS: PLATELET ESTIMATE MARKEDLY DECREASED; PLATELET MORPHOLOGY COMMENT FEW LARGE
[2019-01-28 08:46] LABS: ANISOCYTOSIS MODERATE; POIKILOCYTOSIS S; RBC MORPHOLOGY COMMENT ABNORMAL
[2019-01-28] MEDS: THIAMINE HCL INJ 100 MG/ML 2ML VIAL IV SCH (09:09)
[2019-01-28] MEDS: HYDRALAZINE HCL 25 MG TAB PO SCH ×3 (09:10→21:03)
[2019-01-28] MEDS: NICOTINE 21 MG/EA PATCH TOP SCH (09:10)
[2019-01-28] MEDS: AMLODIPINE BESYLATE 10 MG TAB PO SCH (09:10)
[2019-01-28] MEDS: CARVEDILOL 12.5 MG TAB PO SCH ×2 (09:10→16:34)
[2019-01-28] MEDS: VALPROATE 250MG/5ML ORAL LIQ 5ml PO SCH ×3 (09:10→21:03)
[2019-01-28 09:22] LABS: ABG HCO3 19 mmol/L (23-28); ABG PCO2 29 mmHg (41-51); ABG PH 7.42 (7.31-7.41); ABG PO2 143 mmHg (80-105)
--- NOTE | 2019-01-28 09:33 | NUR ---
ST NOTE: Pt extubated this AM at 0800, order acknowledged for BSE, will be completed 01/29/19, handoff to [facility] [place]
[2019-01-28] MEDS ORDERED: HALOPERIDOL LACTATE 5 MG/ML VIAL IM PRN ×2 (15:15)
[2019-01-28] MEDS: RISPERIDONE 0.5 MG TAB PO PRN (15:41)
[2019-01-28] MEDS ORDERED: FUROSEMIDE INJ 10 MG/ML 4 ML VIAL IV ONE (16:45)
--- NOTE | 2019-01-28 16:55 | Progress Note ---
DATE: 01/28/2019 Psychiatric Progress Note SUBJECTIVE: The patient was evaluated and events noted. The patient is in the ICU. She has been extubated. She is still confused. Unable to answer questions and is unable to follow commands. She is in restraints. She has been restless. She is on Depakote 125 three times a day. Discussed with nursing staff. ASSESSMENT: 1. Unspecified psychosis/delirium. 2. History of alcohol abuse. 3. History of depression. PLAN: 1. To continue with Depakene. 2. Restart a small dose of Haldol 1 mg IM q.6 hours p.r.n. 3. Add Risperdal 0.5 p.o. q.6 hours p.r.n. 4. Monitor for agitation. Dictated by Jazmín Urrutia PA-C Mer Kirkland MD QTV/MODL /[id number]
[2019-01-29] VITALS (12 sets, daily range): BP systolic 138–183; BP diastolic 53–72
[2019-01-29] MEDS: HYDRALAZINE HCL 20 MG/ML VIAL IV PRN ×2 (01:35→05:38)
[2019-01-29] MEDS: RISPERIDONE 0.5 MG TAB PO PRN (03:38)
[2019-01-29 05:07] LABS: BASOPHILS % 0.2 % (0.0-1.0); EOSINOPHILS % 0.4 % (0.0-6.0); HEMATOCRIT 27.8 % (34.2-44.1); HEMOGLOBIN 9.5 g/dL (12.0-16.0); LYMPHOCYTES % 8.9 % (18.0-39.1); MEAN CORPUSCULAR HEMOGLOBIN 33.8 pg (28-32); MEAN CORPUSCULAR HGB CONC 34.2 g/dL (31-35); MEAN CORPUSCULAR VOLUME 98.9 fL (81-99); MONOCYTES # (AUTO) 1.5 (0.2-0.8); MONOCYTES % 13.1 % (4.4-11.3); NEUTROPHILS # (AUTO) 7.8 (2.1-6.9); NEUTROPHILS % 68.9 % (38.7-80.0); PLATELET COUNT 63 x10e3/uL (140-360); RED BLOOD COUNT 2.81 x10e6/uL (3.6-5.1); RED CELL DISTRIBUTION WIDTH 13.6 % (11.7-14.4)
[2019-01-29] MEDS: CLINDAMYCIN PHOS 900MG/ 50ML 50 ML IV SCH (05:26)
[2019-01-29] MEDS: LEVOTHYROXINE SODIUM 75 MCG TAB NG SCH (05:26)
[2019-01-29 05:28] LABS: ANION GAP 14.5 mmol/L (8-16); CREATININE, SERUM 1.54 mg/dL (0.57-1.11); POTASSIUM 3.5 mmol/L (3.5-5.1)
[2019-01-29] MEDS ORDERED: SODIUM CHLORIDE 0.9% 250ML 250 ML ONE (05:32)
--- NOTE | 2019-01-29 06:00 | Diagnostic Imaging Report ---
EXAM: CHEST SINGLE (PORTABLE), AP Portable DATE: 01/29/2019 7:00 AM Time stamp on exam: 5:45 AM INDICATION: Pain. COMPARISON: 01/28/2019 FINDINGS: LINES/TUBES: Right IJ central line is unchanged position. Endotracheal tube has been removed. Enteric tube observed with the distal tip not included. LUNGS: Bibasilar subsegmental atelectasis. Mild bilateral pulmonary edema again observed, unchanged. PLEURA: No effusions or pneumothorax. HEART AND MEDIASTINUM: Borderline enlarged cardiac silhouette. BONES AND SOFT TISSUES: No acute findings. IMPRESSION: Stable examination. Mild bilateral pulmonary edema. Interval removal of endotracheal tube. Signed by: Dr. Isabel Krause M.D. on 01/29/2019 5:57 AM
--- NOTE | 2019-01-29 06:30 | NUR ---
Paged Dr. Dan regarding orders for high BP. Spoke with answering service. Awaiting return call.
[2019-01-29] MEDS: NICARDIPINE 20MG/200ML PREMIX 200 ML IV PRN (07:03)
--- NOTE | 2019-01-29 07:03 | NUR ---
Spoke with Meghana Gaspar gtt resumed. BP 183/68, HR 67.
--- NOTE | 2019-01-29 07:30 | NUR ---
Dr Powers to bedside.
--- NOTE | 2019-01-29 08:45 | NUR ---
Dr Saunders to bedside.
[2019-01-29 08:56] LABS: LYMPHOCYTES % (MANUAL) 20 % (19-48); MONOCYTES % (MANUAL) 16 % (3.4-9.0); NEUTROPHILS % (MANUAL) 60 % (40-74)
[2019-01-29 08:57] LABS: ANISOCYTOSIS SLIGHT; PLATELET ESTIMATE MODERATELY DECREASED; PLATELET MORPHOLOGY COMMENT NORMAL; POIKILOCYTOSIS SLIGHT; RBC MORPHOLOGY COMMENT NORMAL
[2019-01-29] MEDS: CARVEDILOL 12.5 MG TAB PO SCH (09:00)
[2019-01-29] MEDS: VALPROATE 250MG/5ML ORAL LIQ 5ml PO SCH (09:00)
[2019-01-29] MEDS: AMLODIPINE BESYLATE 10 MG TAB PO SCH (09:00)
[2019-01-29] MEDS: THIAMINE HCL INJ 100 MG/ML 2ML VIAL IV SCH (09:00)
[2019-01-29] MEDS: HYDRALAZINE HCL 25 MG TAB PO SCH (09:00)
[2019-01-29] MEDS: NICOTINE 21 MG/EA PATCH TOP SCH (09:00)
--- NOTE | 2019-01-29 09:31 | NUR ---
Received MOT from [facility] [place] [id number] [place] [address] Saunders to attend MOT completed and given to [facility].
--- NOTE | 2019-01-29 09:35 | NUR ---
Report called to Devang Baires RN for [facility] ICU Bed 7 @ [phone].
--- NOTE | 2019-01-29 10:09 | NUR ---
Dr Saunders orders patient to transfer to [facility] ICU, patient's mother, Cleo, aware, Dr Powers aware.
--- NOTE | 2019-01-29 13:00 | NUR ---
Patient to [facility] via ambulance on [facility] gtt and 2 L NC.
== END 2019-01-29 13:15 | DRG 208 ==
LOC: ER 12:18 → ERHOLD 13:56 → MED/SURG 19:59 → OBSVTOIN 01-14 09:44 → ICU 01-16 09:39
PROVIDERS: ADMIT Internal Medicine; ATTEND Internal Medicine
PROC: 4A023N7 Measurement of Cardiac Sampling and Pressure, Left Heart, Percutaneous Approach (ICD-10-PCS; principal; 2019-01-16)
PROC: B2111ZZ Fluoroscopy of Multiple Coronary Arteries using Low Osmolar Contrast (ICD-10-PCS; 2019-01-16)
PROC: B2151ZZ Fluoroscopy of Left Heart using Low Osmolar Contrast (ICD-10-PCS; 2019-01-16)
PROC: B4101ZZ Fluoroscopy of Abdominal Aorta using Low Osmolar Contrast (ICD-10-PCS; 2019-01-16)
PROC: 02HV33Z Insertion of Infusion Device into Superior Vena Cava, Percutaneous Approach (ICD-10-PCS; 2019-01-21)
PROC: B548ZZA Ultrasonography of Superior Vena Cava, Guidance (ICD-10-PCS; 2019-01-21)
PROC: 0DH67UZ Insertion of Feeding Device into Stomach, Via Natural or Artificial Opening (ICD-10-PCS; 2019-01-22)
PROC: BD12ZZZ Fluoroscopy of Stomach (ICD-10-PCS; 2019-01-22)
PROC: 5A1945Z Respiratory Ventilation, 24-96 Consecutive Hours (ICD-10-PCS; 2019-01-24)
PROC: 0BH17EZ Insertion of Endotracheal Airway into Trachea, Via Natural or Artificial Opening (ICD-10-PCS; 2019-01-24)
DX: J44.0 Chronic obstructive pulmonary disease with (acute) lower respiratory infection (principal); J96.01 Acute respiratory failure with hypoxia; J18.1 Lobar pneumonia, unspecified organism; A41.9 Sepsis, unspecified organism; N17.0 Acute kidney failure with tubular necrosis; J69.0 Pneumonitis due to inhalation of food and vomit; E87.2 Acidosis; F10.231 Alcohol dependence with withdrawal delirium; J44.1 Chronic obstructive pulmonary disease with (acute) exacerbation; I16.0 Hypertensive urgency; F10.20 Alcohol dependence, uncomplicated; F17.200 Nicotine dependence, unspecified, uncomplicated; I73.9 Peripheral vascular disease, unspecified; D69.59 Other secondary thrombocytopenia; I25.9 Chronic ischemic heart disease, unspecified; I12.9 Hypertensive chronic kidney disease with stage 1 through stage 4 chronic kidney disease, or unspecified chronic kidney disease; N18.3 Chronic kidney disease, stage 3 (moderate); Z89.611 Acquired absence of right leg above knee; Z90.49 Acquired absence of other specified parts of digestive tract; Z83.3 Family history of diabetes mellitus; Z82.49 Family history of ischemic heart disease and other diseases of the circulatory system; F17.210 Nicotine dependence, cigarettes, uncomplicated; K70.30 Alcoholic cirrhosis of liver without ascites; R41.0 Disorientation, unspecified; I65.22 Occlusion and stenosis of left carotid artery; E87.6 Hypokalemia
CPT/HCPCS: 36415; 36556; 36600; 49441; 70450; 71045; 71250; 74018; 74176; 74470; 75625; 76604; 76937; 80048; 80053; 81001; 82140; 82550; 82553; 82805; 83605; 83735; 84100; 84484; 85025; 85610; 85730; 86022; 87070; 87205; 93005; 93306; 93458; 93880; 94002; 94003; 94660; 96360; 97139; 99284; C1751; C1769; G0378; J0330; J0360; J0692; J0696; J1170; J1630; J1644; J1940; J1956; J2001; J2060; J2250; J2270; J2370; J2405; J2920; J3010; J3411; J3475; J3480; J3486; J7030; J7040; J7050; Q9967

== ENCOUNTER 2020-10-15 13:34 | Inpatient (IN) | payer MEDICARE, OTHER ==
[~2020-10-15] VITALS: Ht 154.9 cm; Wt 38.6 kg
[2020-10-15] MEDS ORDERED: HALOPERIDOL LACTATE 5 MG/ML VIAL IV NR (14:00)
[2020-10-15 15:42] LABS: BASOPHILS % 0.1 % (0.0-1.0); HEMOGLOBIN 7.8 g/dL (12.0-16.0); LYMPHOCYTES # (AUTO) 1.4 (1.0-3.2); LYMPHOCYTES % 12.6 % (18.0-39.1); MEAN CORPUSCULAR HEMOGLOBIN 32.8 pg (28-32); MEAN CORPUSCULAR HGB CONC 35.5 g/dL (31-35); MEAN CORPUSCULAR VOLUME 92.4 fL (81-99); MONOCYTES # (AUTO) 0.7 (0.2-0.8); MONOCYTES % 6.5 % (4.4-11.3); NEUTROPHILS # (AUTO) 9.2 (2.1-6.9); NEUTROPHILS % 80.2 % (38.7-80.0); PLATELET COUNT 105 x10e3/uL (140-360); RED BLOOD COUNT 2.38 x10e6/uL (3.6-5.1); RED CELL DISTRIBUTION WIDTH 15.2 % (11.7-14.4)
[2020-10-15 15:59] LABS: ALBUMIN 1.6 g/dL (3.5-5.0); ALBUMIN/GLOBULIN RATIO 0.4 (0.8-2.0); ANION GAP 16.4 mmol/L (8-16); CALCIUM 7.1 mg/dL (8.4-10.2); CLARITY,URINE CLOUDY (CLEAR); COLOR,URINE YELLOW (YELLOW); CREATININE, SERUM 3.38 mg/dL (0.57-1.11); POTASSIUM 3.4 mmol/L (3.5-5.1)
[2020-10-15 16:00] LABS: KETONES,URINE NEGATIVE (NEGATIVE); LEUKOCYTE ESTERASE ,URINE 1+ (NEGATIVE); NITRITE,URINE NEGATIVE (NEGATIVE); PROTEIN,URINE DIPSTICK >=300 (NEGATIVE); URINE UROBILINOGEN 0.2 mg/dL (0.2 - 1)
[2020-10-15 16:09] LABS: BACTERIA,URINE MANY /HPF; EPITHELIAL CELLS,URINE FEW /LPF; TRANSITIONAL EPI CELLS,URINE FEW; WBC,URINE (MAN) >50 /HPF (0-5)
[2020-10-15] MEDS ORDERED: CEFTRIAXONE SOD 1 GM/50 ML BAG IV ONE (16:30)
[2020-10-15] MEDS ORDERED: LACTATED RINGER'S 1,000 ML INJ ONE (16:30)
[2020-10-15] MEDS ORDERED: CEFTRIAXONE SOD 1 GM in SODIUM CHLORIDE 0.9% 50ML 50 ML IV ONE (16:30)
[2020-10-15] MEDS ORDERED: ONDANSETRON HCL INJ 2MG/ML 2ML 2 MG/ML VIAL IV PRN (16:30)
[2020-10-15] MEDS: SODIUM CHLORIDE 0.9% 1000ML 1,000 ML IV SCH (16:55)
[2020-10-15] MEDS ORDERED: HALOPERIDOL LACTATE 5 MG/ML VIAL ONE (17:10)
[2020-10-15] MEDS ORDERED: HALOPERIDOL LACTATE 5 MG/ML VIAL IV ONE (17:15)
[2020-10-15 21:00] VITALS: BP 164/98
[2020-10-15 21:20] VITALS: BP 164/98
[2020-10-16] VITALS (8 sets, daily range): BP systolic 112–176; BP diastolic 71–91
[2020-10-16] MEDS: SODIUM CHLORIDE 0.9% 1000ML 1,000 ML IV SCH ×2 (01:36→13:12)
[2020-10-16 07:17] LABS: BASOPHILS % 0.2 % (0.0-1.0); EOSINOPHILS % 0.4 % (0.0-6.0); HEMATOCRIT 23.6 % (34.2-44.1); HEMOGLOBIN 7.9 g/dL (12.0-16.0); LYMPHOCYTES # (AUTO) 1.5 (1.0-3.2); LYMPHOCYTES % 14.4 % (18.0-39.1); MEAN CORPUSCULAR HEMOGLOBIN 31.6 pg (28-32); MEAN CORPUSCULAR HGB CONC 33.5 g/dL (31-35); MEAN CORPUSCULAR VOLUME 94.4 fL (81-99); MONOCYTES % 9.1 % (4.4-11.3); NEUTROPHILS % 75.2 % (38.7-80.0); PLATELET COUNT 104 x10e3/uL (140-360); RED CELL DISTRIBUTION WIDTH 15.5 % (11.7-14.4)
[2020-10-16 07:41] LABS: ANION GAP 15.6 mmol/L (8-16); CREATININE, SERUM 2.92 mg/dL (0.57-1.11); POTASSIUM 3.6 mmol/L (3.5-5.1)
[2020-10-16 07:45] LABS: CALCIUM 6.8 mg/dL (8.4-10.2)
[2020-10-16] MEDS ORDERED: ALBUTEROL/IPRATROPIUM 3 ML NEB NEB PRN (10:00)
[2020-10-16] MEDS ORDERED: IBUPROFEN 200 MG TAB PO PRN (10:00)
[2020-10-16] MEDS: PANTOPRAZOLE 40 MG 10ML VIAL INJ SCH (10:00)
[2020-10-16] MEDS: MEROPENEM 500MG/ NS 50ML 50 ML IV SCH ×2 (11:00→21:00)
[2020-10-16] MEDS: ALBUTEROL/IPRATROPIUM 3 ML NEB NEB SCH ×2 (12:32→19:50)
[2020-10-16] MEDS: TRAMADOL HCL 50 MG TAB PO PRN ×2 (15:44→21:58)
[2020-10-16] MEDS: ZOLPIDEM TARTRATE 5 MG TAB PO PRN (21:57)
[2020-10-17] VITALS (9 sets, daily range): BP systolic 127–158; BP diastolic 79–135
[2020-10-17] MEDS: ALBUTEROL/IPRATROPIUM 3 ML NEB NEB SCH ×4 (01:00→19:50)
[2020-10-17] MEDS: TRAMADOL HCL 50 MG TAB PO PRN ×2 (02:07→20:23)
[2020-10-17] MEDS: SODIUM CHLORIDE 0.9% 1000ML 1,000 ML IV SCH ×2 (08:16→18:05)
[2020-10-17] MEDS: PANTOPRAZOLE 40 MG 10ML VIAL INJ SCH (08:20)
[2020-10-17] MEDS: MEROPENEM 500MG/ NS 50ML 50 ML IV SCH ×2 (08:21→20:24)
[2020-10-17 13:51] LABS: ANION GAP 15.5 mmol/L (8-16); CREATININE, SERUM 3.02 mg/dL (0.57-1.11); POTASSIUM 3.5 mmol/L (3.5-5.1)
[2020-10-17 14:07] LABS: CALCIUM 6.5 mg/dL (8.4-10.2)
[2020-10-17 14:08] LABS: PHOSPHORUS 3.7 MG/DL (2.3-4.7)
[2020-10-17 14:28] LABS: THYROID STIMULATING HORMONE 24.817 uIU/mL (0.350-4.940)
[2020-10-17 14:50] LABS: BASOPHILS % 0.2 % (0.0-1.0); EOSINOPHILS % 0.3 % (0.0-6.0); HEMOGLOBIN 7.5 g/dL (12.0-16.0); LYMPHOCYTES # (AUTO) 1.4 (1.0-3.2); LYMPHOCYTES % 13.5 % (18.0-39.1); MEAN CORPUSCULAR HEMOGLOBIN 32.3 pg (28-32); MEAN CORPUSCULAR HGB CONC 33.5 g/dL (31-35); MEAN CORPUSCULAR VOLUME 96.6 fL (81-99); MONOCYTES # (AUTO) 0.9 (0.2-0.8); MONOCYTES % 8.8 % (4.4-11.3); NEUTROPHILS # (AUTO) 7.8 (2.1-6.9); NEUTROPHILS % 76.5 % (38.7-80.0); PLATELET COUNT 108 x10e3/uL (140-360); RED BLOOD COUNT 2.32 x10e6/uL (3.6-5.1); RED CELL DISTRIBUTION WIDTH 15.9 % (11.7-14.4)
[2020-10-17 14:57] LABS: HEMATOCRIT 22.4 % (34.2-44.1)
[2020-10-17] MEDS ORDERED: MAGNESIUM SULFATE 2GM/50ML 50 ML IV ONE (16:45)
[2020-10-17] MEDS: ZOLPIDEM TARTRATE 5 MG TAB PO PRN (20:23)
[2020-10-17 22:53] LABS: EOSINOPHIL SMEAR,URINE NONE SEEN (NONE SEEN)
[2020-10-17 22:57] LABS: CREATININE,URINE RANDOM 98.51 mg/dL (47-110); SODIUM,URINE 29 mmol/L
[2020-10-18] VITALS (9 sets, daily range): BP systolic 150–166; BP diastolic 82–93
[2020-10-18] MEDS: ALBUTEROL/IPRATROPIUM 3 ML NEB NEB SCH ×3 (00:45→19:17)
[2020-10-18] MEDS: SODIUM CHLORIDE 0.9% 1000ML 1,000 ML IV SCH ×2 (06:05→18:32)
[2020-10-18] MEDS: PANTOPRAZOLE 40 MG 10ML VIAL INJ SCH (08:08)
[2020-10-18] MEDS: TRAMADOL HCL 50 MG TAB PO PRN ×2 (08:09→20:15)
[2020-10-18] MEDS: MEROPENEM 500MG/ NS 50ML 50 ML IV SCH ×2 (08:09→20:14)
[2020-10-18 08:59] LABS: PROTHROMBIN TIME 13.8 seconds (11.9-14.5)
[2020-10-18] MEDS ORDERED: ALBUMIN 25% 12.5GM 50ML 100 ML IV ONE (13:05)
[2020-10-18] MEDS ORDERED: ALBUMIN 25% 12.5GM 50ML 50 ML IV ONE (13:16)
[2020-10-18 14:29] LABS: ANION GAP 12.7 mmol/L (8-16); CALCIUM 7.1 mg/dL (8.4-10.2); CREATININE, SERUM 2.97 mg/dL (0.57-1.11); POTASSIUM 3.7 mmol/L (3.5-5.1)
[2020-10-18 15:27] LABS: BODY FLUID APPEARANCE CLEAR; BODY FLUID COLOR YELLOW; BODY FLUID TYPE PERITONEAL
[2020-10-18 15:28] LABS: RBC,BODY FLUID < 2000 cells/uL; WBC,BODY FLUID 118 cells/uL
[2020-10-18 16:48] LABS: LYMPHOCYTES,BODY FLUID 11 %; MONO/MACROPHG,BODY FLUID 11 %; NEUTROPHILS,BODY FLUID 12 %
[2020-10-18 16:52] LABS: OTHER CELLS,BODY FLUID 66 %
[2020-10-19] VITALS (7 sets, daily range): BP systolic 144–169; BP diastolic 71–87
[2020-10-19] MEDS: ALBUTEROL/IPRATROPIUM 3 ML NEB NEB SCH ×4 (00:55→19:52)
[2020-10-19] MEDS: TRAMADOL HCL 50 MG TAB PO PRN ×2 (06:25→20:58)
[2020-10-19] MEDS: PANTOPRAZOLE 40 MG 10ML VIAL INJ SCH (08:56)
[2020-10-19] MEDS: MEROPENEM 500MG/ NS 50ML 50 ML IV SCH ×2 (08:56→20:58)
[2020-10-19] MEDS: SODIUM CHLORIDE 0.9% 1000ML 1,000 ML IV SCH (09:13)
[2020-10-19] MEDS: LEVOTHYROXINE SODIUM 50 MCG TAB PO ONE ×2 (10:57→12:48)
[2020-10-19 11:05] LABS: BASOPHILS % 0.1 % (0.0-1.0); EOSINOPHILS % 0.3 % (0.0-6.0); HEMOGLOBIN 7.3 g/dL (12.0-16.0); LYMPHOCYTES # (AUTO) 0.6 (1.0-3.2); LYMPHOCYTES % 9.5 % (18.0-39.1); MEAN CORPUSCULAR HGB CONC 32.4 g/dL (31-35); MEAN CORPUSCULAR VOLUME 98.7 fL (81-99); MONOCYTES # (AUTO) 0.7 (0.2-0.8); MONOCYTES % 9.8 % (4.4-11.3); NEUTROPHILS # (AUTO) 5.4 (2.1-6.9); PLATELET COUNT 101 x10e3/uL (140-360); RED BLOOD COUNT 2.28 x10e6/uL (3.6-5.1); RED CELL DISTRIBUTION WIDTH 16.5 % (11.7-14.4)
[2020-10-19 11:09] LABS: HEMATOCRIT 22.5 % (34.2-44.1)
[2020-10-19 11:20] LABS: ANION GAP 13.6 mmol/L (8-16); CALCIUM 7.1 mg/dL (8.4-10.2); CREATININE, SERUM 2.65 mg/dL (0.57-1.11); POTASSIUM 3.6 mmol/L (3.5-5.1)
[2020-10-19] MEDS: MAGNESIUM OXIDE 400 MG TAB PO SCH (16:16)
[2020-10-19] MEDS: CALCIUM CARBONATE 500 MG CHEWABLE TABS PO SCH ×2 (16:16→20:58)
[2020-10-19] MEDS: SODIUM BICARBONATE 650 MG TAB PO SCH (16:16)
[2020-10-20] VITALS (8 sets, daily range): BP systolic 144–167; BP diastolic 56–85
[2020-10-20] MEDS: ALBUTEROL/IPRATROPIUM 3 ML NEB NEB SCH ×4 (01:02→19:00)
[2020-10-20] MEDS: TRAMADOL HCL 50 MG TAB PO PRN (05:00)
[2020-10-20] MEDS: LEVOTHYROXINE SODIUM 50 MCG TAB PO SCH (05:01)
[2020-10-20 06:27] LABS: ALBUMIN 1.8 g/dL (3.5-5.0); ANION GAP 11.6 mmol/L (8-16); CALCIUM 7.2 mg/dL (8.4-10.2); CREATININE, SERUM 2.73 mg/dL (0.57-1.11); POTASSIUM 3.6 mmol/L (3.5-5.1)
[2020-10-20] MEDS: PANTOPRAZOLE 40 MG 10ML VIAL INJ SCH (08:51)
[2020-10-20] MEDS: MAGNESIUM OXIDE 400 MG TAB PO SCH ×2 (08:52→17:00)
[2020-10-20] MEDS: SODIUM BICARBONATE 650 MG TAB PO SCH ×2 (08:52→17:00)
[2020-10-20] MEDS: MEROPENEM 500MG/ NS 50ML 50 ML IV SCH ×2 (08:57→21:00)
[2020-10-20] MEDS: CALCIUM CARBONATE 500 MG CHEWABLE TABS PO SCH ×3 (08:57→21:00)
[2020-10-20] MEDS ORDERED: EPOETIN ALFA-EPBX 10,000 UNIT/ML VIAL SC SCH (14:30)
[2020-10-20] MEDS: ZOLPIDEM TARTRATE 5 MG TAB PO PRN (22:57)
[2020-10-21] VITALS (9 sets, daily range): BP systolic 131–177; BP diastolic 77–112
[2020-10-21] MEDS: ALBUTEROL/IPRATROPIUM 3 ML NEB NEB SCH ×4 (01:00→19:00)
[2020-10-21] MEDS: LEVOTHYROXINE SODIUM 50 MCG TAB PO SCH (04:49)
[2020-10-21 05:43] LABS: BASOPHILS % 0.1 % (0.0-1.0); EOSINOPHILS # (AUTO) 0.1 (0.0-0.4); EOSINOPHILS % 0.8 % (0.0-6.0); LYMPHOCYTES # (AUTO) 1.1 (1.0-3.2); LYMPHOCYTES % 14.3 % (18.0-39.1); MEAN CORPUSCULAR HEMOGLOBIN 31.9 pg (28-32); MEAN CORPUSCULAR HGB CONC 32.2 g/dL (31-35); MONOCYTES # (AUTO) 0.8 (0.2-0.8); MONOCYTES % 10.7 % (4.4-11.3); NEUTROPHILS # (AUTO) 5.7 (2.1-6.9); NEUTROPHILS % 73.3 % (38.7-80.0); PLATELET COUNT 106 x10e3/uL (140-360); RED BLOOD COUNT 2.07 x10e6/uL (3.6-5.1); RED CELL DISTRIBUTION WIDTH 16.4 % (11.7-14.4)
[2020-10-21 05:49] LABS: HEMATOCRIT 20.5 % (34.2-44.1); HEMOGLOBIN 6.6 g/dL (12.0-16.0)
[2020-10-21 06:00] LABS: INR 1.03; PARTIAL THROMBOPLASTIN TIME 36.7 seconds (23.8-35.5); PROTHROMBIN TIME 14.1 seconds (11.9-14.5)
[2020-10-21 06:25] LABS: FERRITIN 379.77 ng/mL (4.63-204.00)
[2020-10-21] MEDS: SODIUM BICARBONATE 650 MG TAB PO SCH ×2 (09:25→15:52)
[2020-10-21] MEDS: PANTOPRAZOLE 40 MG 10ML VIAL INJ SCH (09:25)
[2020-10-21] MEDS: MEROPENEM 500MG/ NS 50ML 50 ML IV SCH ×2 (09:25→20:10)
[2020-10-21] MEDS: MAGNESIUM OXIDE 400 MG TAB PO SCH ×2 (09:25→15:52)
[2020-10-21] MEDS: CALCIUM CARBONATE 500 MG CHEWABLE TABS PO SCH ×3 (09:25→20:11)
[2020-10-21] MEDS ORDERED: MIDAZOLAM HCL 2 MG/2 ML VIAL ONE (12:12)
[2020-10-21] MEDS ORDERED: FENTANYL CITRATE/PF 100MCG/2 ML INJ ONE (12:12)
[2020-10-21] MEDS ORDERED: FUROSEMIDE INJ 10 MG/ML 2 ML VIAL IV PRN ×2 (15:00→15:15)
[2020-10-21] MEDS ORDERED: SODIUM CHLORIDE 0.9% 250ML 250 ML IV ONE (15:00)
[2020-10-21] MEDS ORDERED: SODIUM CHLORIDE 0.9% 250ML 250 ML ONE (18:52)
[2020-10-21] MEDS ORDERED: NIFEDIPINE 10 MG CAP PO STA (19:19)
[2020-10-21] MEDS ORDERED: NIFEDIPINE CR 30 MG TAB PO ONE (19:30)
[2020-10-21] MEDS: FERROUS SULFATE 325 MG TAB PO SCH (20:11)
[2020-10-21] MEDS: ZOLPIDEM TARTRATE 5 MG TAB PO PRN ×2 (20:25)
[2020-10-22 00:18] VITALS: BP 165/81
[2020-10-22] MEDS: ALBUTEROL/IPRATROPIUM 3 ML NEB NEB SCH ×3 (01:00→13:00)
[2020-10-22 05:06] LABS: CALCIUM IONIZED 1.2 mmol/L (1.09-1.30)
[2020-10-22] MEDS: LEVOTHYROXINE SODIUM 50 MCG TAB PO SCH (05:19)
[2020-10-22] MEDS: TRAMADOL HCL 50 MG TAB PO PRN (05:19)
[2020-10-22 05:36] LABS: ANION GAP 13.9 mmol/L (8-16); CALCIUM 7.1 mg/dL (8.4-10.2); CREATININE, SERUM 2.86 mg/dL (0.57-1.11); POTASSIUM 3.9 mmol/L (3.5-5.1)
[2020-10-22 07:40] VITALS: BP 164/96
[2020-10-22 07:41] VITALS: BP 164/94
[2020-10-22] MEDS ORDERED: NIFEDIPINE 10 MG CAP PO SCH (09:00)
[2020-10-22] MEDS ORDERED: NIFEDIPINE CR 30 MG TAB PO SCH (09:00)
[2020-10-22] MEDS: CALCIUM CARBONATE 500 MG CHEWABLE TABS PO SCH (09:41)
[2020-10-22] MEDS: PANTOPRAZOLE 40 MG 10ML VIAL INJ SCH (09:41)
[2020-10-22] MEDS: MEROPENEM 500MG/ NS 50ML 50 ML IV SCH (09:41)
[2020-10-22] MEDS: SODIUM BICARBONATE 650 MG TAB PO SCH (09:41)
[2020-10-22] MEDS: MAGNESIUM OXIDE 400 MG TAB PO SCH (09:41)
[2020-10-22] MEDS: FERROUS SULFATE 325 MG TAB PO SCH (09:41)
[2020-10-22] MEDS ORDERED: FUROSEMIDE INJ 10 MG/ML 2 ML VIAL IV PRN (10:45)
[2020-10-22] MEDS ORDERED: SODIUM CHLORIDE 0.9% 250ML 250 ML IV ONE (10:45)
[2020-10-22 11:42] LABS: BASOPHILS % 0.3 % (0.0-1.0); EOSINOPHILS % 0.3 % (0.0-6.0); HEMATOCRIT 29.6 % (34.2-44.1); LYMPHOCYTES # (AUTO) 1.4 (1.0-3.2); LYMPHOCYTES % 14.1 % (18.0-39.1); MEAN CORPUSCULAR HEMOGLOBIN 31.9 pg (28-32); MEAN CORPUSCULAR HGB CONC 34.8 g/dL (31-35); MEAN CORPUSCULAR VOLUME 91.6 fL (81-99); MONOCYTES # (AUTO) 0.9 (0.2-0.8); MONOCYTES % 8.7 % (4.4-11.3); NEUTROPHILS # (AUTO) 7.4 (2.1-6.9); NEUTROPHILS % 75.7 % (38.7-80.0); PLATELET COUNT 102 x10e3/uL (140-360); RED BLOOD COUNT 3.23 x10e6/uL (3.6-5.1); RED CELL DISTRIBUTION WIDTH 17.2 % (11.7-14.4)
[2020-10-22 11:45] LABS: HEMOGLOBIN 10.3 g/dL (12.0-16.0)
[2020-10-22 12:18] VITALS: BP 174/99
[2020-10-22 14:25] VITALS: BP 151/78
[2020-10-22] MEDS ORDERED: BUSPIRONE HCL 10 MG TABLET PO SCH (17:00)
[2020-10-22] MEDS ORDERED: PAROXETINE HCL 20 MG TAB PO SCH (21:00)
[2020-10-22] MEDS ORDERED: TRAZODONE HCL 50 MG TAB PO SCH (21:00)
== END 2020-10-22 14:45 | disposition home or self-care (01) | DRG 432 ==
LOC: ER 13:45 → ERHOLD 17:51 → MED/SURG3 20:56
PROVIDERS: ADMIT Internal Medicine; ATTEND Internal Medicine
PROC: 02HV33Z Insertion of Infusion Device into Superior Vena Cava, Percutaneous Approach (ICD-10-PCS; 2020-10-16)
PROC: 0W9G3ZZ Drainage of Peritoneal Cavity, Percutaneous Approach (ICD-10-PCS; 2020-10-18)
PROC: 0FB13ZX Excision of Right Lobe Liver, Percutaneous Approach, Diagnostic (ICD-10-PCS; principal; 2020-10-21)
PROC: 0W9G3ZZ Drainage of Peritoneal Cavity, Percutaneous Approach (ICD-10-PCS; 2020-10-21)
PROC: 30233N1 Transfusion of Nonautologous Red Blood Cells into Peripheral Vein, Percutaneous Approach (ICD-10-PCS; 2020-10-21)
DX: K70.31 Alcoholic cirrhosis of liver with ascites (principal); E43 Unspecified severe protein-calorie malnutrition; N17.9 Acute kidney failure, unspecified; N39.0 Urinary tract infection, site not specified; K76.6 Portal hypertension; Z68.1 Body mass index [BMI] 19.9 or less, adult; E87.2 Acidosis; N18.4 Chronic kidney disease, stage 4 (severe); R33.9 Retention of urine, unspecified; Z74.09 Other reduced mobility; K80.80 Other cholelithiasis without obstruction; E11.22 Type 2 diabetes mellitus with diabetic chronic kidney disease; I12.9 Hypertensive chronic kidney disease with stage 1 through stage 4 chronic kidney disease, or unspecified chronic kidney disease; F10.20 Alcohol dependence, uncomplicated; D63.8 Anemia in other chronic diseases classified elsewhere; F17.290 Nicotine dependence, other tobacco product, uncomplicated; J43.9 Emphysema, unspecified; F99 Mental disorder, not otherwise specified; E03.9 Hypothyroidism, unspecified; E83.51 Hypocalcemia; Z20.822 Contact with and (suspected) exposure to COVID-19
CPT/HCPCS: 36415; 36569; 47000; 49083; 71045; 71250; 74176; 74470; 76942; 80048; 80053; 81001; 81015; 82040; 82105; 82270; 82378; 82570; 82607; 82728; 82746; 82948; 83540; 83605; 83615; 83690; 83735; 84100; 84300; 84443; 84466; 84484; 85025; 85610; 85730; 86301; 86304; 86850; 86900; 86920; 87040; 87070; 87071; 87186; 87205; 88112; 88305; 88307; 89051; 94640; 97139; 99251; 99284; C1729; J0696; J1630; J1940; J2250; J2405; J3010; J3475; J7030; J7050; J7121; P9016; U0002

== ENCOUNTER 2020-11-16 14:54 | Inpatient (IN) | payer MEDICARE, OTHER ==
[~2020-11-16] VITALS: Ht 154.9 cm; Wt 46.5 kg
[2020-11-16] MEDS ORDERED: FENTANYL CITRATE/PF 100MCG/2 ML INJ IV ONE (15:15)
[2020-11-16] MEDS ORDERED: DIATRIZOATE MEGL/DIATRIZOA SOD 30 ML BTL PO ONE (15:27)
[2020-11-16 16:50] LABS: BASOPHILS % 0.3 % (0.0-1.0); EOSINOPHILS % 0.1 % (0.0-6.0); HEMATOCRIT 40.6 % (34.2-44.1); HEMOGLOBIN 13.3 g/dL (12.0-16.0); LYMPHOCYTES # (AUTO) 1.3 (1.0-3.2); LYMPHOCYTES % 14.8 % (18.0-39.1); MEAN CORPUSCULAR HGB CONC 32.8 g/dL (31-35); MEAN CORPUSCULAR VOLUME 97.8 fL (81-99); MONOCYTES # (AUTO) 0.4 (0.2-0.8); NEUTROPHILS # (AUTO) 6.9 (2.1-6.9); NEUTROPHILS % 79.6 % (38.7-80.0); PLATELET COUNT 193 x10e3/uL (140-360); RED BLOOD COUNT 4.15 x10e6/uL (3.6-5.1); RED CELL DISTRIBUTION WIDTH 15.2 % (11.7-14.4)
[2020-11-16 17:14] LABS: ALBUMIN 2.1 g/dL (3.5-5.0); ALBUMIN/GLOBULIN RATIO 0.5 (0.8-2.0); ANION GAP 19.3 mmol/L (8-16); CALCIUM 7.5 mg/dL (8.4-10.2); CREATININE, SERUM 4.91 mg/dL (0.57-1.11)
[2020-11-16 17:19] LABS: POTASSIUM 5.3 mmol/L (3.5-5.1)
[2020-11-16] MEDS ORDERED: FUROSEMIDE INJ 10 MG/ML 4 ML VIAL IV ONE (17:45)
[2020-11-16 19:29] LABS: CLARITY,URINE CLEAR (CLEAR); COLOR,URINE YELLOW (YELLOW); KETONES,URINE NEGATIVE (NEGATIVE); LEUKOCYTE ESTERASE ,URINE NEGATIVE (NEGATIVE); NITRITE,URINE NEGATIVE (NEGATIVE); PROTEIN,URINE DIPSTICK 2+ (NEGATIVE); URINE UROBILINOGEN 0.2 mg/dL (0.2 - 1)
[2020-11-16] MEDS: ONDANSETRON HCL INJ 2MG/ML 2ML 2 MG/ML VIAL IV PRN (19:41)
[2020-11-16] MEDS: MORPHINE SULFATE INJ 4 MG/ML INJ 1ML IV PRN (19:41)
[2020-11-16 19:42] LABS: BACTERIA,URINE RARE /HPF; EPITHELIAL CELLS,URINE MANY /LPF; RBC,URINE 0-5 /HPF (0-5); TRANSITIONAL EPI CELLS,URINE MODERATE; WBC,URINE (MAN) 0-5 /HPF (0-5)
[2020-11-16 21:29] VITALS: BP 167/103
[2020-11-16 21:30] VITALS: BP 167/103
[2020-11-16] MEDS ORDERED: SODIUM CHLORIDE 0.9% 1000ML 1,000 ML IV ONE (23:15)
[2020-11-17] VITALS (8 sets, daily range): BP systolic 111–169; BP diastolic 74–101
[2020-11-17] MEDS ORDERED: ONDANSETRON HCL INJ 2MG/ML 2ML 2 MG/ML VIAL IV PRN (00:30)
[2020-11-17] MEDS ORDERED: HYDRALAZINE HCL 20 MG/ML VIAL IV PRN (00:30)
[2020-11-17] MEDS ORDERED: TRAMADOL HCL 50 MG TAB PO PRN (00:30)
[2020-11-17] MEDS: MORPHINE SULFATE INJ 4 MG/ML INJ 1ML IV PRN ×3 (00:31→17:17)
[2020-11-17] MEDS: SODIUM CHLORIDE 0.9% 1000ML 1,000 ML IV SCH ×3 (00:44→21:22)
[2020-11-17 05:28] LABS: BASOPHILS % 0.4 % (0.0-1.0); EOSINOPHILS % 0.2 % (0.0-6.0); HEMATOCRIT 39.3 % (34.2-44.1); HEMOGLOBIN 12.9 g/dL (12.0-16.0); LYMPHOCYTES # (AUTO) 1.7 (1.0-3.2); MEAN CORPUSCULAR HEMOGLOBIN 31.5 pg (28-32); MEAN CORPUSCULAR HGB CONC 32.8 g/dL (31-35); MEAN CORPUSCULAR VOLUME 96.1 fL (81-99); MONOCYTES # (AUTO) 0.4 (0.2-0.8); MONOCYTES % 4.4 % (4.4-11.3); NEUTROPHILS % 73.1 % (38.7-80.0); PLATELET COUNT 163 x10e3/uL (140-360); RED BLOOD COUNT 4.09 x10e6/uL (3.6-5.1)
[2020-11-17 05:52] LABS: ANION GAP 16.9 mmol/L (8-16); CALCIUM 7.2 mg/dL (8.4-10.2); CREATININE, SERUM 4.73 mg/dL (0.57-1.11); INR 0.92; PARTIAL THROMBOPLASTIN TIME 34.9 seconds (23.8-35.5); POTASSIUM 4.9 mmol/L (3.5-5.1)
[2020-11-17] MEDS: FAMOTIDINE 20 MG/2 ML VIAL IV SCH ×2 (08:38→17:04)
[2020-11-17] MEDS: ONDANSETRON HCL INJ 2MG/ML 2ML 2 MG/ML VIAL IV PRN ×2 (08:44→17:17)
[2020-11-17] MEDS: CEFTRIAXONE 1 GM in SODIUM CHLORIDE 0.9% 50ML 50 ML IV SCH (10:30)
[2020-11-17] MEDS: GABAPENTIN 100 MG CAP PO SCH ×3 (10:30→21:23)
[2020-11-17] MEDS ORDERED: ALBUMIN 25% 12.5GM 50ML 100 ML IV ONE (12:43)
[2020-11-17] MEDS ORDERED: ALBUMIN 25% 12.5GM 50ML 50 ML IV ONE (12:52)
[2020-11-18 01:58] VITALS: BP 143/85
[2020-11-18 05:12] LABS: BASOPHILS % 0.4 % (0.0-1.0); EOSINOPHILS % 0.4 % (0.0-6.0); HEMATOCRIT 31.9 % (34.2-44.1); HEMOGLOBIN 10.4 g/dL (12.0-16.0); LYMPHOCYTES # (AUTO) 1.5 (1.0-3.2); LYMPHOCYTES % 18.8 % (18.0-39.1); MEAN CORPUSCULAR HGB CONC 32.6 g/dL (31-35); MEAN CORPUSCULAR VOLUME 95.2 fL (81-99); MONOCYTES # (AUTO) 0.4 (0.2-0.8); MONOCYTES % 4.5 % (4.4-11.3); NEUTROPHILS # (AUTO) 6.2 (2.1-6.9); NEUTROPHILS % 75.2 % (38.7-80.0); PLATELET COUNT 138 x10e3/uL (140-360); RED BLOOD COUNT 3.35 x10e6/uL (3.6-5.1); RED CELL DISTRIBUTION WIDTH 15.1 % (11.7-14.4)
[2020-11-18 05:26] VITALS: BP 138/67
[2020-11-18] MEDS: SODIUM CHLORIDE 0.9% 1000ML 1,000 ML IV SCH (05:26)
[2020-11-18] MEDS: MORPHINE SULFATE INJ 4 MG/ML INJ 1ML IV PRN ×2 (06:02→13:16)
[2020-11-18 06:04] LABS: ANION GAP 14.5 mmol/L (8-16); CREATININE, SERUM 4.48 mg/dL (0.57-1.11); POTASSIUM 4.5 mmol/L (3.5-5.1)
[2020-11-18 06:07] LABS: CALCIUM 6.7 mg/dL (8.4-10.2)
[2020-11-18] MEDS ORDERED: DEXTROSE 50% SYRINGE 50 ML IV STA (06:11)
[2020-11-18] MEDS ORDERED: DEXTROSE 50% SYRINGE 50 ML IV ONE ×2 (06:23→22:03)
[2020-11-18 08:05] VITALS: BP 143/73
[2020-11-18] MEDS: CEFTRIAXONE 1 GM in SODIUM CHLORIDE 0.9% 50ML 50 ML IV SCH (08:46)
[2020-11-18] MEDS: GABAPENTIN 100 MG CAP PO SCH ×3 (08:46→21:34)
[2020-11-18] MEDS: FAMOTIDINE 20 MG/2 ML VIAL IV SCH ×2 (08:46→17:00)
[2020-11-18 08:58] VITALS: BP 143/73
[2020-11-18 11:45] VITALS: BP 119/68
[2020-11-18 20:00] VITALS: BP 123/60
[2020-11-18] MEDS ORDERED: DEXTROSE 50% SYRINGE 50 ML IV PRN (22:00)
[2020-11-19] VITALS: BP 103/58
[2020-11-19 04:00] VITALS: BP 115/66
[2020-11-19 08:10] VITALS: BP 114/70
[2020-11-19 08:59] VITALS: BP 114/70
[2020-11-19] MEDS: CEFTRIAXONE 1 GM in SODIUM CHLORIDE 0.9% 50ML 50 ML IV SCH (09:25)
[2020-11-19] MEDS: GABAPENTIN 100 MG CAP PO SCH ×2 (09:25→17:05)
[2020-11-19] MEDS: FAMOTIDINE 20 MG/2 ML VIAL IV SCH (09:25)
[2020-11-19] MEDS ORDERED: NICOTINE 21 MG/EA PATCH TOP SCH (10:30)
[2020-11-19 11:15] LABS: ANION GAP 18.3 mmol/L (8-16); CALCIUM 7.1 mg/dL (8.4-10.2); CREATININE, SERUM 4.92 mg/dL (0.57-1.11); POTASSIUM 4.3 mmol/L (3.5-5.1)
[2020-11-19 11:48] VITALS: BP 124/71
[2020-11-19 15:17] VITALS: BP 103/72
[2020-11-19] MEDS ORDERED: ONDANSETRON HCL 4 MG ORAL DISINTEGRATING TAB PO PRN (16:30)
[2020-11-19] MEDS ORDERED: FAMOTIDINE 20 MG TAB PO SCH (16:30)
[2020-11-20] MEDS ORDERED: FUROSEMIDE 40 MG TAB PO SCH (09:00)
== END 2020-11-19 19:00 | disposition hospice, inpatient (51) | DRG 432 ==
LOC: ER 15:00 → ERHOLD 18:10 → MED/SURG3 20:54 → OBSVTOIN 11-17 09:06
PROVIDERS: ADMIT Internal Medicine; ATTEND Internal Medicine
PROC: 0W9G3ZZ Drainage of Peritoneal Cavity, Percutaneous Approach (ICD-10-PCS; principal; 2020-11-17)
DX: K70.31 Alcoholic cirrhosis of liver with ascites (principal); E43 Unspecified severe protein-calorie malnutrition; N17.9 Acute kidney failure, unspecified; E87.1 Hypo-osmolality and hyponatremia; C22.0 Liver cell carcinoma; C78.89 Secondary malignant neoplasm of other digestive organs; Z68.1 Body mass index [BMI] 19.9 or less, adult; M79.672 Pain in left foot; Z89.611 Acquired absence of right leg above knee; Z90.49 Acquired absence of other specified parts of digestive tract; E87.5 Hyperkalemia; N18.30 Chronic kidney disease, stage 3 unspecified; J44.9 Chronic obstructive pulmonary disease, unspecified; Z72.0 Tobacco use; F10.20 Alcohol dependence, uncomplicated; R33.9 Retention of urine, unspecified; Z20.822 Contact with and (suspected) exposure to COVID-19; E11.22 Type 2 diabetes mellitus with diabetic chronic kidney disease; I12.9 Hypertensive chronic kidney disease with stage 1 through stage 4 chronic kidney disease, or unspecified chronic kidney disease
CPT/HCPCS: 36415; 49083; 51700; 74176; 74470; 80048; 80053; 81001; 82948; 83690; 84484; 85025; 85610; 85730; 87086; 93005; 93971; 99284; C1729; G0378; J0360; J0696; J1940; J2270; J2405; J3010; J7030; J7799; U0002